=== PATIENT | male | born 1940 | race Caucasian/White ===

== ENCOUNTER 2025-04-12 20:59 | Inpatient (IN) ==
--- NOTE | 2025-04-12 21:10 | Emergency Department Note ---
History of Present Illness General Chief complaint: Heart Alert Stated complaint: Heart Alert Time Seen by Provider: 04/12/25 21:07 Source: EMS History of Present Illness Provider complaint: Heart alert 84-year-old male presented to the emergency department as a heart alert. Per EMS the patient was having crushing chest pain nausea and diaphoresis. On arrival patient reports that his chest pain is better after sublingual nitroglycerin and fentanyl. He is also reporting lower extremity pain. Patient reports that he was outside in the heat today. Patient reports he fell today but states did not hit his head. Home Medications Medication Instructions Recorded Confirmed Type acetaminophen 500 mg tablet 1,000 mg PO HS PRN Pain 04/12/25 04/12/25 History (Tylenol Extra Strength) amitriptyline 10 mg tablet 10 mg PO DAILY 04/12/25 04/12/25 History amitriptyline 25 mg tablet 25 mg PO HS 04/12/25 04/12/25 History aspirin 81 mg tablet,delayed 81 mg PO 3XWK 04/12/25 04/12/25 History release cholecalciferol (vitamin D3) 125 125 mcg PO DAILY 04/12/25 04/12/25 History mcg (5,000 unit) tablet (Vitamin D3) famotidine 10 mg tablet 10 mg PO BID 04/12/25 04/12/25 History folic acid 1 mg tablet 1 mg PO BID 04/12/25 04/12/25 History hydrocodone 5 mg-acetaminophen 325 0.5 tab PO BID 04/12/25 04/12/25 History mg tablet magnesium 250 mg tablet 250 mg PO DAILY 04/12/25 04/12/25 History methotrexate sodium 2.5 mg tablet 15 mg PO WK 04/12/25 04/12/25 History omega 8-[id number]-fff-fish oil 1,200 mg 2 cap PO HS 04/12/25 04/12/25 History (144 mg-216 mg) capsule (Fish Oil) oxybutynin chloride 10 mg 10 mg PO DAILY 04/12/25 04/12/25 History tablet,extended release 24 hr prednisone 10 mg tablet 10 mg PO [id number] 04/12/25 04/12/25 History ropinirole 1 mg tablet 1 mg PO HS 04/12/25 04/12/25 History tamsulosin 0.4 mg capsule (Flomax) 0.4 mg PO DAILY 04/12/25 04/12/25 History Allergies Allergy/AdvReac Type Severity Reaction Status Date / Time No Known Allergies Allergy Verified 04/12/25 21:18 Past Med/Surg History Problem List (Updated 04/12/25 @ 23:42 by Sanchez Staton MD) ST elevation (STEMI) myocardial infarction (Acute) Social History Smoking Status: Never smoker Preferred Language: Kinyarwanda Feels Safe at Home: Yes Physical Exam Vital Signs Vital Signs - 24 hr 04/12/25 21:15 04/12/25 21:30 04/12/25 21:42 Temperature 36.7 C Temperature Source Oral Pulse Rate 86 Pulse Rate [Apical] 86 84 Pulse Rhythm Regular Pulse Rhythm [Apical] Regular Regular Pulse Strength Normal Pulse Strength [Apical] Normal Normal Respiratory Rate 17 18 16 Respiratory Effort / Characteristics Non-Labored Spontaneous Non-Labored Spontaneous Non-Labored Spontaneous Respiratory Depth Normal Normal Normal Respiratory Pattern Regular Regular Regular Blood Pressure 132/83 Blood Pressure [Right Arm] 132/83 147/85 H Blood Pressure Mean 99 Blood Pressure Mean [Right Arm] 99 105 Blood Pressure Position Lying Blood Pressure Position [Right Arm] Lying Lying Pulse Oximetry 98 96 98 Oxygen Delivery Method Nasal Cannula Nasal Cannula Nasal Cannula Oxygen Flow Rate 2 2 2 Sepsis Recent Fever Within 48 Hours No Sepsis New/Unexplained Change in Mental Status N/A Sepsis Action Taken by Nursing No Action Required Physical Exam GENERAL: Ill-appearing. HENT: Exam performed. - Head: Normocephalic and atraumatic. NECK: Normal range of motion. Neck supple. No JVD present. CV: Normal rate, regular rhythm, normal heart sounds and intact distal pulses. There is no peripheral edema. Palpable radial pulses bue. PULM/CHEST: Effort normal and breath sounds normal. No respiratory distress. No stridor. He has no wheezes. He has no rales. - Chest Wall: He exhibits no tenderness. No crepitus bilaterally. ABD: The abdomen is soft. There is no tenderness. There is no rebound, no guarding. MUSC/SKEL: Pelvis stable NEURO: Motor and sensation grossly intact.. Course Course 2044: Received a call from EMS for patient having crushing chest pain diaphoresis. Prehospital EKG was concerning for STEMI with mild ST elevation in leads II, III, aVF mild ST depression in leads V2, V3, V4, V5 V6. Heart alert was called. 2114: The patient was evaluated in room B1. A complete history and physical exam was performed Cardiac monitoring: An order was placed for continuous cardiac monitoring. The monitor shows a rate of 80 with sinus rhythm interpreted by me Dr. Hernandez interventional cardiology and Dr. Wagner hospitalist were also at bedside. EKG shows possible ST segment elevation in leads V5 and V6. PVCs are present. History of fall and trauma now given. Repeat EKG showed sinus rhythm with possible ST elevation in lead V6 multiple PVCs were present. Chest x-ray was conducted which showed a possible widened mediastinum when viewed by myself. Given this chest x-ray finding, the report of fall, and the patient reporting lower extremity discomfort, we decided to take the patient to CT scan to rule out any traumatic intracranial hemorrhage and/or dissection. 2139: CT of the head viewed by me showed no ICH. CTA of the chest abdomen pelvis viewed by me showed no dissection. I discussed my interpretations with Dr. Hernandez and he stated they will take the patient to the [facility]. 2234: Received a call from Dr. Hernandez on the [facility]. Patient has multivessel disease with an extremely poor ejection fraction. The patient was hypotensive and hypoxic. His team is started the patient on Levophed and placed a balloon pump. They were discussing intubation. They asked that I go discuss the patient's clinical status with the family and to confirm that the patient is full code and would want all of these interventions done including intubation and mechanical ventilation. Formal imaging reports were reviewed which showed no dissection, no traumatic injury. I went and discussed with the family and the cardiac [facility] waiting area. I spoke with the patient's 2 sons who state that they are his next of kin. They state that the patient is a no code and would not want to be intubated. They called the patient's granddaughter who is also his PCP and she confirmed that the patient would not want to be intubated, not want compressions, and confirms he is DNR/DNI. I discussed these findings with Dr. Hernandez. He briefed the family and they again confirmed to both him and myself that the patient is DNR DNI. Administered Medications Discontinued Medications Diphenhydramine HCl (Diphenhydramine 50 Mg/Ml Vial) Confirm Administered Dose 50 mg .ROUTE .[facility] ONE Stop: 04/12/25 21:58 Last Admin: 04/12/25 23:02 Dose: 50 mg Documented By: ISAÍAS Fentanyl Citrate (Fentanyl Citrate Pf 100 Mcg/2 Ml Vial) Confirm Administered Dose 100 mcg .ROUTE .STK-MED ONE Stop: 04/12/25 21:08 Last Admin: 04/12/25 22:57 Dose: 200 mcg Documented By: ISAÍAS Fentanyl Citrate (Fentanyl Citrate Pf 100 Mcg/2 Ml Vial) Confirm Administered Dose 100 mcg .ROUTE .STK-MED ONE Stop: 04/12/25 22:48 Last Increment: 04/12/25 23:05 Dose: 25 mcg Documented By: ISAÍAS Heparin Sodium (Porcine) (Heparin (Porcine) 1000 Unit/Ml 10 Ml ([facility] Use Only)) Confirm Administered Dose 10,000 units .ROUTE .STK-MED ONE Stop: 04/12/25 21:08 Last Admin: 04/12/25 22:57 Dose: 9,000 units Documented By: ISAÍAS Heparin Sodium/Sodium Chloride (Heparin In Nss Infusion 1000 Unit/500 Ml (2 U/Ml) Bag) Confirm Administered Dose 3,000 units IV .STK-MED ONE Stop: 04/12/25 21:08 Last Admin: 04/12/25 22:59 Dose: 3,000 units Documented By: SHABNAM Ioversol (Optiray 350) Confirm Administered Dose 1 ml .ROUTE .STK-MED ONE Stop: 04/12/25 21:09 Last Admin: 04/12/25 23:01 Dose: 50 ml Documented By: SHABNAM Ioversol (Optiray 320 125ml) 119 ml IV ONCE ONE Stop: 04/12/25 21:45 Last Admin: 04/12/25 21:44 Dose: 119 ml Documented By: CARMEN Midazolam HCl (Midazolam Hcl 1 Mg/Ml 2ml Vial) Confirm Administered Dose 2 mg .ROUTE .STK-MED ONE Stop: 04/12/25 21:08 Last Admin: 04/12/25 22:59 Dose: 5 mg Documented By: ISAÍAS Midazolam HCl (Midazolam Hcl 1 Mg/Ml 2ml Vial) Confirm Administered Dose 2 mg .ROUTE .STK-MED ONE Stop: 04/12/25 22:05 Last Admin: 04/12/25 23:02 Dose: Not Given Documented By: ISAÍAS Nitroglycerin/Dextrose (Nitroglycerin/D5w 100mcg/Ml 20ml Syr) Confirm Administered Dose 2,000 mcg .ROUTE .STK-MED ONE Stop: 04/12/25 21:09 Last Admin: 04/12/25 23:01 Dose: 2,000 mcg Documented By: SHABNAM Phenylephrine HCl (Phenylephrine 100mcg/Ml 5ml Syr) Confirm Administered Dose 100 mcg .ROUTE .STK-MED ONE Stop: 04/12/25 22:17 Last Admin: 04/12/25 23:02 Dose: 100 mcg Documented By: ISAÍAS Co-signed By: KARTHIKEYAN Phenylephrine HCl (Phenylephrine Hcl 25 Mg/250 Ml Nss) Confirm Administered Dose 25 mg IV .STK-MED ONE Stop: 04/12/25 22:53 Last Admin: 04/12/25 23:06 Dose: 25 mg Documented By: ISAÍAS Co-signed By: KARTHIKEYAN Critical Care Time Critical Care Time: Yes Total Critical Care Time: 50 Medical Decision Making Laboratory Data Attestation: I reviewed the patient's lab results. 04/12/25 21:26 04/12/25 21:26 Lab Results 04/12/25 04/12/25 04/12/25 Range/Units 21:26 21:28 22:17 WBC 13.33 H (4.8-10.8) K/ul RBC 4.21 L (4.70-6.10) M/uL Hgb 14.0 (14.0-18.0) g/dl POC Hgb 13.6 L (14.0-18.0) g/dl Hct 40.7 L (42.0-52.0) % POC Hct 40 L (42-52) % MCV 96.7 (80.0-100.0) fL MCH 33.3 (25.0-34.0) pg MCHC 34.4 (32.0-36.0) g/dL RDW Std Deviation 51.3 H (36.4-46.3) fL RDW Coeff of Antoinette 14.6 H (11.5-14.5) % Plt Count 141 (130-400) K/uL MPV 9.4 (9.4-12.4) fL Immature Gran % (Auto) 1.0 % Neut % (Auto) 89.3 % Lymph % (Auto) 4.3 % Mobile % (Auto) 5.2 % Eos % (Auto) 0.0 % Baso % (Auto) 0.2 % Neut # (Auto) 11.92 H (1.40-6.50) K/uL Lymph # (Auto) 0.57 L (1.20-3.40) K/uL Mobile # (Auto) 0.69 H (0.11-0.59) K/uL Eos # (Auto) 0.00 (0.00-0.50) K/uL Baso # (Auto) 0.02 (0.00-0.20) K/uL Immature Gran # (Auto) 0.13 (0.01-0.20) K/uL PT 11.4 (9.0-12.0) Seconds INR 1.1 (0.9-1.1) APTT 24 (21-31) Seconds PTT Ratio 0.9 Activ Coag Time Kaolin 176 H (94-140) SECONDS POC Sodium 141 (135-144) mmol/L Sodium 140 (136-145) mmol/L POC Potassium 4.2 (3.3-5.0) mmol/L Potassium 4.3 (3.5-5.1) mmol/L POC Chloride 104 (101-112) mmol/L Chloride 107 (98-107) mmol/L Carbon Dioxide 25 (21-32) mmol/L POC Total CO2 24 (24-31) mmol/L Anion Gap 8 (3-11) POC Anion Gap 19.0 (16-25) mmol/L POC BUN 28 H (7-18) mg/dl BUN 30 H (6-23) mg/dl Creatinine 1.01 (0.6-1.4) mg/dl POC Creatinine 1.1 (0.6-1.3) mg/dl Est Cr Clr Drug Dosing 47.8 ml/min eGFR 73.33 BUN/Creatinine Ratio 29.7 H (10-20) Glucose 131 H (70-99(Fasting)) mg/dl POC Glucose (other) 126 H (70-99) mg/dl Calcium 8.9 (8.6-10.3) mg/dl POC Ioniz Calcium Annabel 1.01 L (1.12-1.32) mmol/l Magnesium 1.9 (1.7-2.4) mg/dl Total Bilirubin 0.9 (0.2-1.0) mg/dl AST 21 (13-39) U/L ALT 22 (7-52) U/L Alkaline Phosphatase 50 (34-104) U/L Total Creatine Kinase 187 (30-223) U/L Troponin I High Sens 192.1 H* (0-20) pg/ml B-Natriuretic Peptide 130 H (0-100) pg/ml Total Protein 6.8 (6.0-8.3) gm/dl Albumin 4.0 (3.4-5.0) gm/dl Globulin 2.8 (2.5-4.0) gm/dl Albumin/Globulin Ratio 1.4 (0.9-2) Lipase 27 (11-82) U/L TSH 1.053 (0.300-4.500) uIu/ml Imaging Data Attestation: I personally reviewed and interpreted this imaging study as follows: My Impression: Chest x-ray was conducted which showed a possible widened mediastinum when viewed by myself. CT of the head viewed by me showed no ICH. CTA of the chest abdomen pelvis viewed by me showed no dissection. Radiologist's Impression: Chest X-Ray 04/12/25 21:15 Exam(s): XR CXR 1 VIEW EXAM: XR Chest, 1 View CLINICAL HISTORY: Reason for exam: Chest pain, nonspecific. TECHNIQUE: Frontal view of the chest. COMPARISON: No relevant prior studies available. FINDINGS: Lungs: Unremarkable. No consolidation. Pleural space: Unremarkable. No pneumothorax. Heart: Unremarkable. No cardiomegaly. Mediastinum: Unremarkable. Normal mediastinal contour. Bones/joints: Unremarkable. No acute fracture. IMPRESSION: Normal chest x-ray. Electronically signed by: Wil Sosa MD 04/12/25 22:15 PM Abdomen/Pelvis CTA 04/12/25 21:24 Exam(s): CTA ABDOMEN + PELVIS W/WO Contrast IV Amt: 119ml EXAM: CT Angiography Abdomen and Pelvis Without and With Intravenous Contrast CLINICAL HISTORY: Reason for exam: trauma. TECHNIQUE: Axial computed tomographic angiography images of the abdomen and pelvis without and with intravenous contrast. CTDI is 20.42 mGy and DLP is 1466. 29 mGy-cm. Automated exposure control was utilized for the study. A dose lowering technique was utilized adhering to the principles of ALARA. MIP reconstructed images were created and reviewed. CONTRAST: Patient received 119ml of IV contrast COMPARISON: No relevant prior studies available. FINDINGS: VASCULATURE: Aorta: No acute findings. No abdominal aortic aneurysm. No dissection. Celiac trunk and mesenteric arteries: No acute findings. No occlusion or significant stenosis. Renal arteries: No acute findings. No occlusion or significant stenosis. Iliac arteries: No acute findings. No occlusion or significant stenosis. Lung bases: Unremarkable. No mass. No consolidation. ABDOMEN: Liver: Unremarkable. No mass. Gallbladder and bile ducts: Cholelithiasis without evidence acute cholecystitis. No ductal dilation. Pancreas: Unremarkable. No ductal dilation. No mass. Spleen: Unremarkable. No splenomegaly. Adrenals: Unremarkable. No mass. Kidneys and ureters: Simple 15 cm left renal cyst. No follow-up of this simple cyst is necessary. Simple 2.7 cm right renal cysts. No follow-up of these simple cysts is necessary. No obstructing stones. No hydronephrosis. Stomach and bowel: Unremarkable. No obstruction. No mucosal thickening. PELVIS: Appendix: No findings to suggest acute appendicitis. Bladder: Unremarkable. No stones. No mass. Reproductive: Unremarkable as visualized. ABDOMEN and PELVIS: Intraperitoneal space: Unremarkable. No significant fluid collection. No free air. Bones/joints: No acute fracture. No dislocation. Soft tissues: Fat containing left inguinal hernia Lymph nodes: Unremarkable. No enlarged lymph nodes. IMPRESSION: No acute findings in the arteries of the abdomen and pelvis. Cholelithiasis without evidence acute cholecystitis Electronically signed by: Wil Sosa MD 04/12/25 22:[address] 04/12/25 21:24 Exam(s): CT C SPINE EXAM: CT Cervical Spine Without Intravenous Contrast CLINICAL HISTORY: Reason for exam: trauma. TECHNIQUE: Axial computed tomography images of the cervical spine without intravenous contrast. CTDI is 24.47 mGy and DLP is 486.7 mGy-cm. Automated exposure control was utilized for the study. A dose lowering technique was utilized adhering to the principles of ALARA. COMPARISON: No relevant prior studies available. FINDINGS: Vertebrae: Multilevel cervical spondylopathy resulting in varying degrees of canal and foraminal stenosis most severe at the C5-C6 and C6- C7 levels. Diffuse osteopenia. No acute fracture. Discs/spinal canal/neural foramina: See above. Soft tissues: Unremarkable. IMPRESSION: No acute findings in the cervical spine. Multilevel cervical spondylopathy Electronically signed by: Wil Sosa MD 04/12/25 22:21 PM Chest CTA 04/12/25 21:24 Exam(s): CTA CHEST W/WO Contrast IV Amt: 119ml EXAM: CT Angiography Chest Without and With Intravenous Contrast CLINICAL HISTORY: Reason for exam: trauma. TECHNIQUE: Axial computed tomographic angiography images of the chest without and with intravenous contrast. CTDI is 20.42 mGy and DLP is 1466.29 mGy-cm. Automated exposure control was utilized for the study. A dose lowering technique was utilized adhering to the principles of ALARA. MIP reconstructed images were created and reviewed. CONTRAST: Patient received 119ml of IV contrast COMPARISON: No relevant prior studies available. FINDINGS: Pulmonary arteries: Unremarkable. No pulmonary embolism. Aorta: No acute findings. No thoracic aortic aneurysm. Lungs: Unremarkable. No mass. No consolidation. Pleural space: Unremarkable. No significant effusion. No pneumothorax. Heart: Coronary artery calcifications. No cardiomegaly. No significant pericardial effusion. No evidence of RV dysfunction. Bones/joints: No acute fracture. No dislocation. Soft tissues: Unremarkable. Lymph nodes: Unremarkable. No enlarged lymph nodes. IMPRESSION: No acute findings in the visualized arteries of the chest. Electronically signed by: Wil Sosa MD 04/12/25 22:[address] 04/12/25 21:24 Exam(s): CT HEAD Without Contrast EXAM: CT Head Without Intravenous Contrast CLINICAL HISTORY: Reason for exam: trauma. TECHNIQUE: Axial computed tomography images of the head/brain without intravenous contrast. CTDI is 37.87 mGy and DLP is 624.41 mGy-cm. Automated exposure control was utilized for the study. A dose lowering technique was utilized adhering to the principles of ALARA. COMPARISON: No relevant prior studies available. FINDINGS: Brain: Unremarkable. No hemorrhage. No significant white matter disease. No edema. Ventricles: Unremarkable. No ventriculomegaly. Bones/joints: Unremarkable. No acute fracture. Soft tissues: Unremarkable. Sinuses: Unremarkable as visualized. No acute sinusitis. Mastoid air cells: Unremarkable as visualized. No mastoid effusion. IMPRESSION: Normal head/brain CT. Electronically signed by: Wil Sosa MD 04/12/25 22:17 PM ECG Data Attestation: I personally reviewed and interpreted this ECG as follows: Additional Comments: EKG #1 at 2115: Sinus rhythm with rate of 77. TX 148 QRS [address] segment elevation in leads V5 and V6. PVCs are present. EKG #2 at 2122: Sinus rhythm with a rate of 92. TX 154 QRS [address] elevation in lead V6 multiple PVCs were present. [facility] Narrative 2044: Received a call from EMS for patient having crushing chest pain diaphoresis. Prehospital EKG was concerning for STEMI with mild ST elevation in leads II, III, aVF mild ST depression in leads V2, V3, V4, V5 V6. Heart alert was called. 2114: The patient was evaluated in room B1. A complete history and physical exam was performed Cardiac monitoring: An order was placed for continuous cardiac monitoring. The monitor shows a rate of 80 with sinus rhythm interpreted by me Dr. Hernandez interventional cardiology and Dr. Wagner hospitalist were also at bedside. EKG shows possible ST segment elevation in leads V5 and V6. PVCs are present. History of fall and trauma now given. Repeat EKG showed sinus rhythm with possible ST elevation in lead V6 multiple PVCs were present. Chest x-ray was conducted which showed a possible widened mediastinum when viewed by myself. Given this chest x-ray finding, the report of fall, and the patient reporting lower extremity discomfort, we decided to take the patient to CT scan to rule out any traumatic intracranial hemorrhage and/or dissection. 2139: CT of the head viewed by me showed no ICH. CTA of the chest abdomen pelvis viewed by me showed no dissection. I discussed my interpretations with Dr. Hernandez and he stated they will take the patient to the [facility]. 2234: Received a call from Dr. Hernandez on the [facility]. Patient has multivessel disease with an extremely poor ejection fraction. The patient was hypotensive and hypoxic. His team is started the patient on Levophed and placed a balloon pump. They were discussing intubation. They asked that I go discuss the patient's clinical status with the family and to confirm that the patient is full code and would want all of these interventions done including intubation and mechanical ventilation. Formal imaging reports were reviewed which showed no dissection, no traumatic injury. I went and discussed with the family and the cardiac [facility] waiting area. I spoke with the patient's 2 sons who state that they are his next of kin. They state that the patient is a no code and would not want to be intubated. They called the patient's granddaughter who is also his PCP and she confirmed that the patient would not want to be intubated, not want compressions, and confirms he is DNR/DNI. I discussed these findings with Dr. Hernandez. He briefed the family and they again confirmed to both him and myself that the patient is DNR DNI. Impression & Plan ST elevation (STEMI) myocardial infarction Discharge Plan Visit Data Chief Complaint: Heart Alert Stated Complaint: Heart Alert ED Provider: Sanchez Staton Discharge Problem: ST elevation (STEMI) myocardial infarction Patient Disposition: Admitted As Inpatient Condition: Critical Discharge Instructions Interventions: ED Discharge Assessment Last Done: 04/12/25 21:44
[2025-04-12] MEDS: OPTIRAY 320 125ml IV ONE (21:44)
[2025-04-12 21:47] LABS: Hematocrit (blood only) 40.7 % (42.0-52.0); Hemoglobin 14.0 g/dl (14.0-18.0); Immature Granulocytes # (auto) 0.13 K/uL (0.01-0.20); Immature Granulocytes % (auto) 1.0 %; Mean Corpuscular Hemoglobin 33.3 pg (25.0-34.0); Mean Corpuscular Volume 96.7 fL (80.0-100.0); Platelet Count 141 K/uL (130-400); RDW Standard Deviation 51.3 fL (36.4-46.3); Red Blood Count 4.21 M/uL (4.70-6.10); White Blood Count 13.33 K/ul (4.8-10.8)
[2025-04-12 21:56] LABS: Alanine Aminotransferase 22.0 U/L (7-52); Albumin Globulin Ratio 1.4 (0.9-2); Alkaline Phosphatase 50.0 U/L (34-104); Anion Gap 8.0 (3-11); Bilirubin,Total 0.9 mg/dl (0.2-1.0); Blood Urea Nitrogen 30.0 mg/dl (6-23); Calcium 8.9 mg/dl (8.6-10.3); Carbon Dioxide 25.0 mmol/L (21-32); Chloride 107.0 mmol/L (98-107); Creatine Kinase 187.0 U/L (30-223); Creatinine Clr Calc Pharmacy 47.8 ml/min; Globulin 2.8 gm/dl (2.5-4.0); Glucose 131.0 mg/dl (70-99(Fasting)); Lipase 27.0 U/L (11-82); Magnesium 1.9 mg/dl (1.7-2.4); Potassium 4.3 mmol/L (3.5-5.1); Sodium 140.0 mmol/L (136-145); Total Protein 6.8 gm/dl (6.0-8.3)
[2025-04-12 22:05] LABS: INR 1.1 (0.9-1.1); Partial Thromboplastin Time 24 Seconds (21-31); Prothrombin Time 11.4 Seconds (9.0-12.0)
[2025-04-12 22:11] LABS: Thyroid Stimulating Hormone 1.053 uIu/ml (0.300-4.500)
--- NOTE | 2025-04-12 22:16 | XRay Report ---
Exam(s): XR CXR 1 VIEW EXAM: XR Chest, 1 View CLINICAL HISTORY: Reason for exam: Chest pain, nonspecific. TECHNIQUE: Frontal view of the chest. COMPARISON: No relevant prior studies available. FINDINGS: Lungs: Unremarkable. No consolidation. Pleural space: Unremarkable. No pneumothorax. Heart: Unremarkable. No cardiomegaly. Mediastinum: Unremarkable. Normal mediastinal contour. Bones/joints: Unremarkable. No acute fracture. IMPRESSION: Normal chest x-ray. Electronically signed by: Wil Sosa MD 04/12/25 22:15 PM
--- NOTE | 2025-04-12 22:18 | CT Scan Report ---
Exam(s): CT HEAD Without Contrast EXAM: CT Head Without Intravenous Contrast CLINICAL HISTORY: Reason for exam: trauma. TECHNIQUE: Axial computed tomography images of the head/brain without intravenous contrast. CTDI is 37.87 mGy and DLP is 624.41 mGy-cm. Automated exposure control was utilized for the study. A dose lowering technique was utilized adhering to the principles of ALARA. COMPARISON: No relevant prior studies available. FINDINGS: Brain: Unremarkable. No hemorrhage. No significant white matter disease. No edema. Ventricles: Unremarkable. No ventriculomegaly. Bones/joints: Unremarkable. No acute fracture. Soft tissues: Unremarkable. Sinuses: Unremarkable as visualized. No acute sinusitis. Mastoid air cells: Unremarkable as visualized. No mastoid effusion. IMPRESSION: Normal head/brain CT. Electronically signed by: Wil Sosa MD 04/12/25 22:17 PM
--- NOTE | 2025-04-12 22:22 | CT Scan Report ---
Exam(s): CT C SPINE EXAM: CT Cervical Spine Without Intravenous Contrast CLINICAL HISTORY: Reason for exam: trauma. TECHNIQUE: Axial computed tomography images of the cervical spine without intravenous contrast. CTDI is 24.47 mGy and DLP is 486.7 mGy-cm. Automated exposure control was utilized for the study. A dose lowering technique was utilized adhering to the principles of ALARA. COMPARISON: No relevant prior studies available. FINDINGS: Vertebrae: Multilevel cervical spondylopathy resulting in varying degrees of canal and foraminal stenosis most severe at the C5-C6 and C6- C7 levels. Diffuse osteopenia. No acute fracture. Discs/spinal canal/neural foramina: See above. Soft tissues: Unremarkable. IMPRESSION: No acute findings in the cervical spine. Multilevel cervical spondylopathy Electronically signed by: Wil Sosa MD 04/12/25 22:21 PM
--- NOTE | 2025-04-12 22:31 | CT Scan Report ---
Exam(s): CTA ABDOMEN + PELVIS W/WO Contrast IV Amt: 119ml EXAM: CT Angiography Abdomen and Pelvis Without and With Intravenous Contrast CLINICAL HISTORY: Reason for exam: trauma. TECHNIQUE: Axial computed tomographic angiography images of the abdomen and pelvis without and with intravenous contrast. CTDI is 20.42 mGy and DLP is 1466. 29 mGy-cm. Automated exposure control was utilized for the study. A dose lowering technique was utilized adhering to the principles of ALARA. MIP reconstructed images were created and reviewed. CONTRAST: Patient received 119ml of IV contrast COMPARISON: No relevant prior studies available. FINDINGS: VASCULATURE: Aorta: No acute findings. No abdominal aortic aneurysm. No dissection. Celiac trunk and mesenteric arteries: No acute findings. No occlusion or significant stenosis. Renal arteries: No acute findings. No occlusion or significant stenosis. Iliac arteries: No acute findings. No occlusion or significant stenosis. Lung bases: Unremarkable. No mass. No consolidation. ABDOMEN: Liver: Unremarkable. No mass. Gallbladder and bile ducts: Cholelithiasis without evidence acute cholecystitis. No ductal dilation. Pancreas: Unremarkable. No ductal dilation. No mass. Spleen: Unremarkable. No splenomegaly. Adrenals: Unremarkable. No mass. Kidneys and ureters: Simple 15 cm left renal cyst. No follow-up of this simple cyst is necessary. Simple 2.7 cm right renal cysts. No follow-up of these simple cysts is necessary. No obstructing stones. No hydronephrosis. Stomach and bowel: Unremarkable. No obstruction. No mucosal thickening. PELVIS: Appendix: No findings to suggest acute appendicitis. Bladder: Unremarkable. No stones. No mass. Reproductive: Unremarkable as visualized. ABDOMEN and PELVIS: Intraperitoneal space: Unremarkable. No significant fluid collection. No free air. Bones/joints: No acute fracture. No dislocation. Soft tissues: Fat containing left inguinal hernia Lymph nodes: Unremarkable. No enlarged lymph nodes. IMPRESSION: No acute findings in the arteries of the abdomen and pelvis. Cholelithiasis without evidence acute cholecystitis Electronically signed by: Wil Sosa MD 04/12/25 22:31 PM
--- NOTE | 2025-04-12 22:34 | CT Scan Report ---
Exam(s): CTA CHEST W/WO Contrast IV Amt: 119ml EXAM: CT Angiography Chest Without and With Intravenous Contrast CLINICAL HISTORY: Reason for exam: trauma. TECHNIQUE: Axial computed tomographic angiography images of the chest without and with intravenous contrast. CTDI is 20.42 mGy and DLP is 1466.29 mGy-cm. Automated exposure control was utilized for the study. A dose lowering technique was utilized adhering to the principles of ALARA. MIP reconstructed images were created and reviewed. CONTRAST: Patient received 119ml of IV contrast COMPARISON: No relevant prior studies available. FINDINGS: Pulmonary arteries: Unremarkable. No pulmonary embolism. Aorta: No acute findings. No thoracic aortic aneurysm. Lungs: Unremarkable. No mass. No consolidation. Pleural space: Unremarkable. No significant effusion. No pneumothorax. Heart: Coronary artery calcifications. No cardiomegaly. No significant pericardial effusion. No evidence of RV dysfunction. Bones/joints: No acute fracture. No dislocation. Soft tissues: Unremarkable. Lymph nodes: Unremarkable. No enlarged lymph nodes. IMPRESSION: No acute findings in the visualized arteries of the chest. Electronically signed by: Wil Sosa MD 04/12/25 22:34 PM
[2025-04-12] MEDS ORDERED: SODIUM CHLORIDE 0.9% 500 ML IV PRN (22:57)
[2025-04-12] MEDS: HEPARIN (PORCINE) 1000 UNIT/ML 10 ML (CATH LAB USE ONLY) ONE (22:57)
--- NOTE | 2025-04-12 22:57 | Pre Anesthesia Assessment ---
Date of Service April 12, 2025 Pre Sedation Assessment Vital Signs Temp Pulse Pulse Resp BP BP Pulse Ox 04/12/25 21:42 84 16 147/85 H 98 04/12/25 21:30 36.7 C 86 18 132/83 96 04/12/25 21:15 86 17 132/83 98 O2 Del Method O2 Flow Rate 04/12/25 21:42 Nasal Cannula 2 04/12/25 21:30 Nasal Cannula 2 04/12/25 21:15 Nasal Cannula 2 Cardiovascular Additional Comments: Distant heart sounds. No murmur appreciated Respiratory normal respiratory effort, lungs clear to auscultation Pre-Sedation Airway Assessment Smoking Status: Never smoker Class IV ASA 4 Notes The planned sedation has been discussed with the patient. Informed Consent was obtained. I have identified the patient, determined the appropriateness of sedation and have assessed the patient immediately prior to the procedure. All medicine(s) and interventions are by my order.
[2025-04-12] MEDS ORDERED: STAT IV Infusion **Titration per Protocol STA (22:58)
[2025-04-12] MEDS: MIDAZOLAM HCL 1 MG/ML 2ML VIAL ONE ×2 (22:59→23:02)
[2025-04-12] MEDS: OPTIRAY 350 ONE (23:01)
[2025-04-12] MEDS: NITROGLYCERIN/D5W 100MCG/ML 20ML SYR ONE (23:01)
[2025-04-12] MEDS: diphenhydrAMINE 50 MG/ML VIAL ONE (23:02)
[2025-04-12] MEDS: PHENYLEPHRINE 100MCG/ML 5ML SYR ONE (23:02)
[2025-04-12] MEDS: PHENYLEPHRINE HCL 25 MG/250 ML NSS IV ONE (23:06)
--- NOTE | 2025-04-12 23:07 | Post Anesthesia Assessment ---
Date of Service April 12, 2025 Post Sedation Assessment Vital Signs Temp Pulse Pulse Resp BP BP Pulse Ox 04/12/25 21:42 84 16 147/85 H 98 04/12/25 21:30 36.7 C 86 18 132/83 96 04/12/25 21:15 86 17 132/83 98 O2 Del Method O2 Flow Rate 04/12/25 21:42 Nasal Cannula 2 04/12/25 21:30 Nasal Cannula 2 04/12/25 21:15 Nasal Cannula 2 Recovery Score Activity: Moves 4 extremities Respiration: Deep Breath/Cough Circulation: +/-20% PreAnes Value Consciousness: Arouseable (by name) Oxygen Saturation: O2 needed for >90% Discharge Sedation Level of Care: Phase I Post Sedation Plan On clinical assessment, the patient appears to have tolerated the sedation without complications. Patient is recovering as anticipated. Patient will continue to be monitored by nursing and may be discharged when sedation discharge criteria are met per below protocol. Upon Completions of procedure up to 15 minutes continue every 5 minute vital signs and the P.A.R. score; then discharge to a Phase I or Fast Track to Phase II per the following guidelines: * Discharge Patient to appropriate Phase II area if PAR is 8 or greater or return to pre- procedure baseline. The post - procedure orders will be as directed. * If PAR score is less than 8 or not return to pre-procedure baseline then patient will follow Phase I monitoring till PAR is reached for Phase II. The Phase I may be done in procedure room or may call to secure a Phase I area. * If naloxone or flumazenil are used for reversal, hold in Phase I for continued monitoring from when last reversal dose was given for a minimum of 60 minutes or longer pending the nurse and/or physician discretion of patient condition before discharge to Phase II. Please call the Sedation Physician to re-evaluate and complete post-note for discharge to Phase II area. Do NOT discharge from procedure sedation or Phase 1 until post- sedation evaluation note is complete by procedure /sedation MD Sedation Discharge Instructions to be given to the patient at discharge to home. [facility] [place] Procedure Codes (Charges) Indication for Procedure Indication for procedure: ACS Sedation/Anesthesia Procedure 1: Sedation/Anesthesia: 74331 Mod Sedation by the same physician;Init15 Min Child Age 5 & Up (Initial 15 minutes, start 2150) Total Sedation Time (minutes): 56 Procedure 2: Sedation/Anesthesia: 43240 Mod Sedation by the same physician; Ea [id number] Minutes (Additional 41 minutes, end time 2247) Total Sedation Time (minutes): 56
--- NOTE | 2025-04-12 23:08 | History & Physical Report ---
Date of Service April 12, 2025 Assessment & Plan (1) Acute coronary syndrome: (2) Cardiogenic shock: (3) Neuropathy: Plan 84yo male presenting as a Heart Alert found to have severe multivessel disease, cardiogenic shock with severely reduced EF. 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 Presently on BiPAP for respiratory support. Patient with multiple family members at bedside. In accordance to patient's wishes will activate comfort measures #Comfort Care -Will manage overnight in the MICU -Patient on comfort measures presently -Limit VS, lab draws -Pain control with Tylenol PRN -Morphine 2-4mg IV q 3 hours PRN pain or air hunger - if patient requiring frequent doses will transition to Morphine drip -Ativan 1mg IV q 2 hours PRN anxiety or agitation -Atropine drops PRN secretions -Zofran PRN nausea #Acute coronary syndrome -If feasible will obtain 2D echo in the morning pending patient's overall clinical status -Continue ASA 81mg po daily #Neuropathy -Will continue patient's Amitriptyline at home dose -Continue patient's home Requip -Medications may help ease any discomfort from underlying neuropathy #GERD -Will continue Pepcid IV -may provide comfort for GI distress - patient on omeprazole at home History of Present Illness Chief Complaint: heart alert Primary Care Provider: ANY Urena Patient presented to [facility] as a Code Heart. History obtained through discussion with patient as well as daughter by phone ([phone]) Saul Trejo is an 84yo male with history of possible peripheral vascular disease "poor circulation" with bilateral LE wounds, chronic back pain and neuropathy presenting as a Code Heart. Patient lives alone and is very independent. He has family and friends that check on him frequently. Daughter reports that he loves to be outside and spends a lot of his day outside sitting at a picnic table in his yard. He had been in his usual state of health prior to tonight's incident. Patient's son and [id number] went to patient's home today to help change the bandages on his LE wounds. They found the patient sitting at the picnic table in his yard, slumped over with his head down. He was very weak and complaining of nausea. Family helped to get him into the home - report that he was weak with ambulation. He had several episodes of non-bloody vomiting and was complaining of numbness in his hands and feet as well as chest discomfort. EMS was called an the patient was noted to be severely diaphoretic and pale, saturation of 88% on room air. HR of 47. He was given ASA 324mg, Zofran 4mg IV, Fentanyl 100mcg IV and Nitro x 2 prior to arrival with some improvement in chest pain. Upon arrival to the ER patient still complaining of some substernal chest discomfort. Repeat EKG with no ST Elevations Patient was taken for CT scan then to for urgent cardiac catheterization Cardiac catheterization revealed severe, multivessel disease as well as markedly diminished LVEF. 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 He briefly had an IABP placed and was started on Phenylephrine. Results relayed to patient's family - opted for Comfort Measures at this time in accordance with patient's wishes Allergies Allergy/AdvReac Type Severity Reaction Status Date / Time No Known Allergies Allergy Verified 04/12/25 21:18 Home Medications Medication Instructions Recorded Confirmed Type acetaminophen 500 mg tablet 1,000 mg PO HS PRN Pain 04/12/25 04/12/25 History (Tylenol Extra Strength) amitriptyline 10 mg tablet 10 mg PO DAILY 04/12/25 04/12/25 History amitriptyline 25 mg tablet 25 mg PO HS 04/12/25 04/12/25 History aspirin 81 mg tablet,delayed 81 mg PO 3XWK 04/12/25 04/12/25 History release cholecalciferol (vitamin D3) 125 125 mcg PO DAILY 04/12/25 04/12/25 History mcg (5,000 unit) tablet (Vitamin D3) famotidine 10 mg tablet 10 mg PO BID 04/12/25 04/12/25 History folic acid 1 mg tablet 1 mg PO BID 04/12/25 04/12/25 History hydrocodone 5 mg-acetaminophen 325 0.5 tab PO BID 04/12/25 04/12/25 History mg tablet magnesium 250 mg tablet 250 mg PO DAILY 04/12/25 04/12/25 History methotrexate sodium 2.5 mg tablet 15 mg PO WK 04/12/25 04/12/25 History omega 1-ncs-vko-fish oil 1,200 mg 2 cap PO HS 04/12/25 04/12/25 History (144 mg-216 mg) capsule (Fish Oil) oxybutynin chloride 10 mg 10 mg PO DAILY 04/12/25 04/12/25 History tablet,extended release 24 hr prednisone 10 mg tablet 10 mg PO 6XWK 04/12/25 04/12/25 History ropinirole 1 mg tablet 1 mg PO HS 04/12/25 04/12/25 History tamsulosin 0.4 mg capsule (Flomax) 0.4 mg PO DAILY 04/12/25 04/12/25 History Past Med/Surg History Problem List (Updated 04/13/25 @ 01:46 by Jordana Wagner DO) Hypoxia Cardiogenic shock Acute coronary syndrome Medical History (Updated 04/13/25 @ 01:46 by Jordana Wagner DO) Neuropathy Surgical History (Updated 04/13/25 @ 01:47 by Jordana Wagner DO) No significant past surgical history Family History (Updated 04/13/25 @ 01:47 by Jordana Wagner DO) Other Family history non-contributory Social History Smoking Status: Never smoker Hx Alcohol Use: No Hx Substance Use: No Preferred Language: [place] Communication Ability: Impaired Communication Ability Comment: Impaired d/t meds and acuity 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 Beliefs That Will Affect Care: None Current Living Situation: Spouse Feels Safe at Home: Yes Assistive Devices: None Review of Systems Review of Systems: All systems reviewed & are unremarkable except as noted in HPI & below Physical Exam Physical Exam: General: patient awake and alert, answering some questions Skin: wounds of bilateral LE with dressing in place, C/D/I HEENT: NC/AT, PERRL, EOMI, anicteric sclera, conjunctiva without injection, ext ernal ear normal to inspection and nontender, nares patent, moist mucus membranes, dentition intact, no oropharyngeal lesions, neck supple, trachea midline, no LAD, no thyromegaly, no JVD Heart: +S1/S2, regular, no m/r/g, distant heart sounds Lungs: equal air entry bilaterally, no rales/rhonchi/wheezes Abd: +BS, soft, NT/ND, no masses/organomegaly/ascites Ext: warm, 2+ pulses in UE/LE bilaterally, no clubbing/cyanosis or edema Neuro: nonfocal After catheterization - patient seen in room 107-1 -Worsened mental status - patient does o pen eyes to name and follows some commands BiPAP in place Sheath in right groin, no active bleeding or hematoma Results & Data Results & Data Vital Signs (Past 12 Hours) Vital Signs Temp Pulse Pulse Resp BP BP Pulse Ox 04/12/25 21:42 84 16 147/85 H 98 04/12/25 21:30 36.7 C 86 18 132/83 96 04/12/25 21:15 86 17 132/83 98 O2 Del Method O2 Flow Rate 04/12/25 21:42 Nasal Cannula 2 04/12/25 21:30 Nasal Cannula 2 04/12/25 21:15 Nasal Cannula 2 Laboratory Results Laboratory Results WBC 13.33 K/ul (4.8-10.8) H 04/12/25 21: RBC 4.21 M/uL (4.70-6.10) L 04/12/25 21: Hgb 14.0 g/dl (14.0-18.0) 04/12/25 21: POC Hgb 13.6 g/dl (14.0-18.0) L 04/12/25 21: Hct 40.7 % (42.0-52.0) L 04/12/25 21: POC Hct 40 % (42-52) L 04/12/25 21: MCV 96.7 fL (80.0-100.0) 04/12/25 21: MCH 33.3 pg (25.0-34.0) 04/12/25 21: MCHC 34.4 g/dL (32.0-36.0) 04/12/25 21: RDW Std Deviation 51.3 fL (36.4-46.3) H 04/12/25: RDW Coeff of Antoinette 14.6 % (11.5-14.5) H 04/12/25: Plt Count 141 K/uL (130-400) 04/12/25: MPV 9.4 fL (9.4-12.4) 04/12/25: Immature Gran % (Auto) 1.0 % 04/12/25: Neut % (Auto) 89.3 % 04/12/25: Lymph % (Auto) 4.3 % 04/12/25: Canyon % (Auto) 5.2 % 04/12/25: Eos % (Auto) 0.0 % 04/12/25: Baso % (Auto) 0.2 % 04/12/25: Neut # (Auto) 11.92 K/uL (1.40-6.50) H 04/12/25: Lymph # (Auto) 0.57 K/uL (1.20-3.40) L 04/12/25: Canyon # (Auto) 0.69 K/uL (0.11-0.59) H 04/12/25: Eos # (Auto) 0.00 K/uL (0.00-0.50) 04/12/25: Baso # (Auto) 0.02 K/uL (0.00-0.20) 04/12/25: Immature Gran # (Auto) 0.13 K/uL (0.01-0.20) 04/12/25: PT 11.4 Seconds (9.0-12.0) 04/12/25: INR 1.1 (0.9-1.1) 04/12/25: APTT 24 Seconds (21-31) 04/12/25: PTT Ratio 0.9 04/12/25: Activ Coag Time Kaolin 176 SECONDS (94-140) H 04/12/25 22:17 POC Sodium 141 mmol/L (135-144) 04/12/25: Sodium 140 mmol/L (136-145) 04/12/25: POC Potassium 4.2 mmol/L (3.3-5.0) 04/12/25 21: Potassium 4.3 mmol/L (3.5-5.1) 04/12/25 21: POC Chloride 104 mmol/L (101-112) 04/12/25: Chloride 107 mmol/L (98-107) 04/12/25 21: Carbon Dioxide 25 mmol/L (21-32) 04/12/25: POC Total CO2 24 mmol/L (24-31) 04/12/25: Anion Gap 8 (3-11) 04/12/25: POC Anion Gap 19.0 mmol/L (16-25) 04/12/25: POC BUN 28 mg/dl (7-18) H 04/12/25 21: BUN 30 mg/dl (6-23) H 04/12/25: Creatinine 1.01 mg/dl (0.6-1.4) 04/12/25: POC Creatinine 1.1 mg/dl (0.6-1.3) 04/12/25: Est Cr Clr Drug Dosing 47.8 ml/min 04/12/25 21: eGFR 73.33 04/12/25: BUN/Creatinine Ratio 29.7 (10-20) H 04/12/25 21: Glucose 131 mg/dl (70-99(Fasting)) H 04/12/25: POC Glucose (other) 126 mg/dl (70-99) H 04/12/25: Calcium 8.9 mg/dl (8.6-10.3) 04/12/25 21: POC Ioniz Calcium Annabel 1.01 mmol/l (1.12-1.32) L 04/12/25: Magnesium 1.9 mg/dl (1.7-2.4) 04/12/25: Total Bilirubin 0.9 mg/dl (0.2-1.0) 04/12/25: AST 21 U/L (13-39) 04/12/25: ALT 22 U/L (7-52) 04/12/25 21: Alkaline Phosphatase 50 U/L (34-104) 04/12/25 21:26 Total Creatine Kinase 187 U/L (30-223) 04/12/25 21:26 Troponin I High Sens 192.1 pg/ml (0-20) H* 04/12/25 21:26 B-Natriuretic Peptide 130 pg/ml (0-100) H 04/12/25 21:26 Total Protein 6.8 gm/dl (6.0-8.3) 04/12/25 21: Albumin 4.0 gm/dl (3.4-5.0) 04/12/25 21: Globulin 2.8 gm/dl (2.5-4.0) 04/12/25 21: Albumin/Globulin Ratio 1.4 (0.9-2) 04/12/25 21: Lipase 27 U/L (11-82) 04/12/25 21: TSH 1.053 uIu/ml (0.300-4.500) 04/12/25 21:26 Impressions Chest X-Ray 04/12/25 21:15 Exam(s): XR CXR 1 VIEW EXAM: XR Chest, 1 View CLINICAL HISTORY: Reason for exam: Chest pain, nonspecific. TECHNIQUE: Frontal view of the chest. COMPARISON: No relevant prior studies available. FINDINGS: Lungs: Unremarkable. No consolidation. Pleural space: Unremarkable. No pneumothorax. Heart: Unremarkable. No cardiomegaly. Mediastinum: Unremarkable. Normal mediastinal contour. Bones/joints: Unremarkable. No acute fracture. IMPRESSION: Normal chest x-ray. Electronically signed by: Wil Sosa MD 04/12/25 22:15 PM Abdomen/Pelvis CTA 04/12/25 21:24 Exam(s): CTA ABDOMEN + PELVIS W/WO Contrast IV Amt: 119ml EXAM: CT Angiography Abdomen and Pelvis Without and With Intravenous Contrast CLINICAL HISTORY: Reason for exam: trauma. TECHNIQUE: Axial computed tomographic angiography images of the abdomen and pelvis without and with intravenous contrast. CTDI is 20.42 mGy and DLP is 1466. 29 mGy-cm. Automated exposure control was utilized for the study. A dose lowering technique was utilized adhering to the principles of ALARA. MIP reconstructed images were created and reviewed. CONTRAST: Patient received 119ml of IV contrast COMPARISON: No relevant prior studies available. FINDINGS: VASCULATURE: Aorta: No acute findings. No abdominal aortic aneurysm. No dissection. Celiac trunk and mesenteric arteries: No acute findings. No occlusion or significant stenosis. Renal arteries: No acute findings. No occlusion or significant stenosis. Iliac arteries: No acute findings. No occlusion or significant stenosis. Lung bases: Unremarkable. No mass. No consolidation. ABDOMEN: Liver: Unremarkable. No mass. Gallbladder and bile ducts: Cholelithiasis without evidence acute cholecystitis. No ductal dilation. Pancreas: Unremarkable. No ductal dilation. No mass. Spleen: Unremarkable. No splenomegaly. Adrenals: Unremarkable. No mass. Kidneys and ureters: Simple 15 cm left renal cyst. No follow-up of this simple cyst is necessary. Simple 2.7 cm right renal cysts. No follow-up of these simple cysts is necessary. No obstructing stones. No hydronephrosis. Stomach and bowel: Unremarkable. No obstruction. No mucosal thickening. PELVIS: Appendix: No findings to suggest acute appendicitis. Bladder: Unremarkable. No stones. No mass. Reproductive: Unremarkable as visualized. ABDOMEN and PELVIS: Intraperitoneal space: Unremarkable. No significant fluid collection. No free air. Bones/joints: No acute fracture. No dislocation. Soft tissues: Fat containing left inguinal hernia Lymph nodes: Unremarkable. No enlarged lymph nodes. IMPRESSION: No acute findings in the arteries of the abdomen and pelvis. Cholelithiasis without evidence acute cholecystitis Electronically signed by: Wil Sosa MD 04/12/25 22:[address] 04/12/25 21:24 Exam(s): CT C SPINE EXAM: CT Cervical Spine Without Intravenous Contrast CLINICAL HISTORY: Reason for exam: trauma. TECHNIQUE: Axial computed tomography images of the cervical spine without intravenous contrast. CTDI is 24.47 mGy and DLP is 486.7 mGy-cm. Automated exposure control was utilized for the study. A dose lowering technique was utilized adhering to the principles of ALARA. COMPARISON: No relevant prior studies available. FINDINGS: Vertebrae: Multilevel cervical spondylopathy resulting in varying degrees of canal and foraminal stenosis most severe at the C5-C6 and C6- C7 levels. Diffuse osteopenia. No acute fracture. Discs/spinal canal/neural foramina: See above. Soft tissues: Unremarkable. IMPRESSION: No acute findings in the cervical spine. Multilevel cervical spondylopathy Electronically signed by: Wil Sosa MD 04/12/25 22:21 PM Chest CTA 04/12/25 21:24 Exam(s): CTA CHEST W/WO Contrast IV Amt: 119ml EXAM: CT Angiography Chest Without and With Intravenous Contrast CLINICAL HISTORY: Reason for exam: trauma. TECHNIQUE: Axial computed tomographic angiography images of the chest without and with intravenous contrast. CTDI is 20.42 mGy and DLP is 1466.29 mGy-cm. Automated exposure control was utilized for the study. A dose lowering technique was utilized adhering to the principles of ALARA. MIP reconstructed images were created and reviewed. CONTRAST: Patient received 119ml of IV contrast COMPARISON: No relevant prior studies available. FINDINGS: Pulmonary arteries: Unremarkable. No pulmonary embolism. Aorta: No acute findings. No thoracic aortic aneurysm. Lungs: Unremarkable. No mass. No consolidation. Pleural space: Unremarkable. No significant effusion. No pneumothorax. Heart: Coronary artery calcifications. No cardiomegaly. No significant pericardial effusion. No evidence of RV dysfunction. Bones/joints: No acute fracture. No dislocation. Soft tissues: Unremarkable. Lymph nodes: Unremarkable. No enlarged lymph nodes. IMPRESSION: No acute findings in the visualized arteries of the chest. Electronically signed by: Wil Sosa MD 04/12/25 22:[address] 04/12/25 21:24 Exam(s): CT HEAD Without Contrast EXAM: CT Head Without Intravenous Contrast CLINICAL HISTORY: Reason for exam: trauma. TECHNIQUE: Axial computed tomography images of the head/brain without intravenous contrast. CTDI is 37.87 mGy and DLP is 624.41 mGy-cm. Automated exposure control was utilized for the study. A dose lowering technique was utilized adhering to the principles of ALARA. COMPARISON: No relevant prior studies available. FINDINGS: Brain: Unremarkable. No hemorrhage. No significant white matter disease. No edema. Ventricles: Unremarkable. No ventriculomegaly. Bones/joints: Unremarkable. No acute fracture. Soft tissues: Unremarkable. Sinuses: Unremarkable as visualized. No acute sinusitis. Mastoid air cells: Unremarkable as visualized. No mastoid effusion. IMPRESSION: Normal head/brain CT. Electronically signed by: Wil Sosa MD 04/12/25 22:17 PM PG Care Time/CCT Total # of Minutes Spent Total Time Spent with Patient: Total time spent is greater than 50% in coordination of care (as documented) at patient's floor/unit and/or counseling patient: Coding Level of Care Code 97525 INT INP/OBS CARE MIN Diagnoses Acute coronary syndrome I24.9 Cardiogenic shock R57.0 Neuropathy G62.9
--- NOTE | 2025-04-12 23:11 | Cardiology Consultation ---
Date of Consultation April 12, 2025 Assessment & Plan (1) Acute coronary syndrome: Labile EKG changes. Coronary angiography reveals severe multivessel coronary artery disease with ALLA I flow in both the circumflex and LAD distributions. Prognosis is limited by the degree/severity/extent of the disease within each vessel as well as a number of vessels involved. Patient unable to maintain O2 saturation. Patient also unable to main blood pressure in the EF looks globally severely reduced. Taken as a whole, prognosis is very poor even with attempts at revascularization. Furthermore, the patient's family including his POA (who is also evidently his primary care provider) would like to honor his wishes with regard to heroic measures. Therefore, we will proceed only with conservative management aimed at comfort. Once he is able to take oral medication then aspirin should be continued. Certainly can consider heparin but this is unlikely to significantly improve his outcome and may actually precipitate bleeding. We will obtain an echocardiogram to better look at his EF, segmental wall motion, etc. should he survive until tomorrow. (2) Cardiogenic shock: Initially placed a balloon pump. However, he actually improved most with the Naresh-Synephrine drip which we will continue for now. Given his apparent diffuse severe hypokinesis I do not think this will be enough for him to survive but we will reassess tomorrow. (3) Hypoxia: Patient was fairly hypoxic. He is DO NOT INTUBATE and DO NOT RESUSCITATE. Family is in agreement that he should be comfort measures only with supportive medication as tolerated. I am not clear if this would include BiPAP or if they would prefer only high flow nasal cannula. In any case, that will be worked out in the ICU. History of Present Illness Reason for Consultation: Acute coronary syndrome Attending Physician: Ganesh Hernandez MD, PhD History of Present Illness 84-year-old gentleman without any known cardiac problems was sent via EMS from home. Evidently, the patient was found down at home near his picnic table by his family. EMS arrived and they found him to have severe chest discomfort, provided him aspirin and nitroglycerin, and obtained an EKG which was suggestive of inferior ST elevation AL. On arrival here, his EKG did not have any residual inferior ST elevations. He had a single lead of ST elevations in the lateral lead. He also complained predominantly of back and lower extremity discomfort. Chest x-ray suggested widened mediastinum and therefore he was sent from the ED to CAT scanner to exclude aortic dissection. The preliminary look at the CAT scan did not suggest dissection so he was taken emergently to the cardiac catheterization suite. We initially tried access from the radial artery but could not get the sheath completely inserted presumably because of tortuosity. We therefore accessed the groin using an ultrasound. His right iliofemoral system was tortuous as well as his abdominal aorta. We were able to eventually get catheters in both the right coronary and the left coronary artery. Angiography revealed severe multivessel coronary disease. ALLA I flow in multiple branches of the circumflex with severe RCA and LAD also with ALLA I flow at best. We did not perform a ventriculogram but observation of the movement of coronaries suggested that his EF was on the 10 to 15% level. He was hypoxic and hypotensive. We started Naresh-Synephrine as a bolus to be followed by a drip. We also exchanged the right femoral artery sheath for a balloon pump. Fortunately, his family had arrived and was available in the [facility] waiting area. I had our [facility] nurse contact the emergency medicine physician to see if the patient could be intubated. He spoke with the family who said that the patient was DNR/DNI. I then went to speak with the family regarding his disease and prognosis. After discussion decision was made to make him comfortable only. We returned back to the [facility] and I removed the balloon pump. We sutured the sheath in place as he was not cooperative with maintaining a still position and I knew that he would bleed if we removed the sheath. The radial sheath had been left in place and was completely removed. Hemostasis there was obtained using the TR band. Patient was maintaining an adequate blood pressure on Naresh- Synephrine and therefore he was transported to the ICU for conservative medical management. No heroic measures are to be undertaken per the family and I feel this is reasonable given his very poor prognosis regardless of additional measures. Allergies Allergy/AdvReac Type Severity Reaction Status Date / Time No Known Allergies Allergy Verified 04/12/25 21:18 Home Medications Medication Instructions Recorded Confirmed Type acetaminophen 500 mg tablet 1,000 mg PO HS PRN Pain 04/12/25 04/12/25 History (Tylenol Extra Strength) amitriptyline 10 mg tablet 10 mg PO DAILY 04/12/25 04/12/25 History amitriptyline 25 mg tablet 25 mg PO HS 04/12/25 04/12/25 History aspirin 81 mg tablet,delayed 81 mg PO 3XWK 04/12/25 04/12/25 History release cholecalciferol (vitamin D3) 125 125 mcg PO DAILY 04/12/25 04/12/25 History mcg (5,000 unit) tablet (Vitamin D3) famotidine 10 mg tablet 10 mg PO BID 04/12/25 04/12/25 History folic acid 1 mg tablet 1 mg PO BID 04/12/25 04/12/25 History hydrocodone 5 mg-acetaminophen 325 0.5 tab PO BID 04/12/25 04/12/25 History mg tablet magnesium 250 mg tablet 250 mg PO DAILY 04/12/25 04/12/25 History methotrexate sodium 2.5 mg tablet 15 mg PO WK 04/12/25 04/12/25 History omega 6-tyz-yav-fish oil 1,200 mg 2 cap PO HS 04/12/25 04/12/25 History (144 mg-216 mg) capsule (Fish Oil) oxybutynin chloride 10 mg 10 mg PO DAILY 04/12/25 04/12/25 History tablet,extended release 24 hr prednisone 10 mg tablet 10 mg PO 6XWK 04/12/25 04/12/25 History ropinirole 1 mg tablet 1 mg PO HS 04/12/25 04/12/25 History tamsulosin 0.4 mg capsule (Flomax) 0.4 mg PO DAILY 04/12/25 04/12/25 History Patient History Social History Smoking Status: Never smoker Preferred Language: Macedonian Feels Safe at Home: Yes Review of Systems Review of Systems: Negative except as per HPI Physical Exam Constitutional: Elderly, chronically ill-appearing gentleman. Very uncomfortable and unable to lie still even with sedation. Neck: JVP 7 cmH2O Respiratory: He is not tachypneic. Oxygen level is low. Improved with high flow oxygen. No crackles on initial evaluation in the emergency department. Cardiovascular: Regular rhythm with borderline tachycardic rate. Distant heart sounds. S4 gallop. Musculoskeletal: no cyanosis or clubbing, extremities motor strength 5/5 Neurologic: Cognition is intact. Speech is fluent. No focal deficits. Psychiatric: A+Ox3, euthymic affect Results & Data Vital Signs (Past 12 Hours) Vital Signs Temp Pulse Pulse Resp BP BP Pulse Ox 04/12/25 21:42 84 16 147/85 H 98 04/12/25 21:30 36.7 C 86 18 132/83 96 04/12/25 21:15 86 17 132/83 98 O2 Del Method O2 Flow Rate 04/12/25 21:42 Nasal Cannula 2 04/12/25 21:30 Nasal Cannula 2 04/12/25 21:15 Nasal Cannula 2 PG Care Time/CCT Total # of Minutes Spent Total Time Spent with Patient: Total time spent is greater than 50% in coordination of care (as documented) at patient's floor/unit and/or counseling patient: Critical Care Time: Yes (80 minutes) A total of 80 minutes critical care time was spent in the initial evaluation and examination of the patient, review of available records. Discussion with the emergency department team, the cardiac catheterization team, the admitting team, and then with his family. Discussion with him was limited because of his physiologic stress and mental status. This time includes also the time for formulation and implementation of a plan of care as well as implementing new plan of care once further information was received. This time also includes documentation of all of the above. The time is exclusive of the time spent for the procedure itself. Coding Level of Care Code 63090 CRITICAL CARE 1ST 30-74M Diagnoses Acute coronary syndrome I24.9 Cardiogenic shock R57.0 Hypoxia R09.02 Additional Codes Critical Care Time - Critical Care Time: Yes ([id number]) Time Spent (min) 80
[2025-04-12] MEDS ORDERED: SCOPOLAMINE 1 MG/72 HR TDSY PATCH TD PRN (23:37)
[2025-04-12] MEDS ORDERED: CHECK SCOPOLAMINE PATCH PLACEMENT SCH (23:37)
[2025-04-12] MEDS ORDERED: ONDANSETRON INJ 2 MG/ML 2 ML VIAL IV PRN (23:48)
[2025-04-12] MEDS: MoRPHine SULFATE 4 MG/ML 1 ML CARP\\VIAL IV PRN (23:52)
[2025-04-13] MEDS ORDERED: CHECK SCOPOLAMINE PATCH PLACEMENT SCH
[2025-04-13] MEDS: RAPID SEQUENCE INDUCTION BAG ONE (00:25)
[2025-04-13] MEDS: MIDAZOLAM HCL 1 MG/ML 2ML VIAL ONE (00:25)
[2025-04-13] MEDS: PHENYLEPHRINE/NSS 25 MG/250 ML BAG IV SCH (00:28)
[2025-04-13] MEDS: MoRPHine SULFATE 4 MG/ML 1 ML CARP\\VIAL IV STA (00:29)
[2025-04-13] MEDS: FAMOTIDINE 20MG IV PUSH 20 MG/5 ML SYR IV SCH (00:41)
[2025-04-13] MEDS: AMITRIPTYLINE HCL 25 MG TAB PO SCH (00:41)
[2025-04-13] MEDS: ASPIRIN 81 MG ECTAB PO SCH (07:39)
[2025-04-13] MEDS: AMITRIPTYLINE HCL 10 MG TAB PO SCH (07:39)
[2025-04-13] MEDS: ATROPINE SULFATE 1% OP SOLN 5 ML BTL SL PRN (08:32)
[2025-04-13] MEDS: MoRPHine SULFATE 2 MG/ML CARP IV PRN (08:34)
[2025-04-13] MEDS ORDERED: TAMSULOSIN HCL 0.4 MG CAP PO SCH (09:00)
--- NOTE | 2025-04-13 10:19 | Hospitalist Progress Note ---
Date of Service April 13, 2025 Assessment & Plan (1) Acute coronary syndrome: Plan: He appears to have suffered a non-ST elevation FL. Continue medical management. He is off the balloon pump and blood pressure has stabilized. (2) Cardiogenic shock: Plan: Present on admission. Now resolved. He is off pressor support in the balloon pump has been discontinued. Will follow (3) Neuropathy: Plan: Peripheral neuropathy associated with restless legs. Resume usual medical management (4) GERD (gastroesophageal reflux disease): Plan: PPI therapy Plan The patient is awake and alert. Blood pressure is stabilized. SWING DRIVER order has been discontinued. Will maintain DNR/DNI. Transfer to PCU. Start OT and PT. I explained to the daughter that he probably will need placement for a while before any consideration for him returning to his previous living arrangements since he lives alone. Admission and Anticipated Discharge Date Admission Date: April 12, 2025 Subjective Alert and oriented. Blood pressure has stabilized. Daughter is at the bedside. We discussed discontinuing comfort measures only status since he is awake and alert and blood pressure is now stabilized. Will maintain DNR/DNI status. Transfer from ICU to PCU. Cardiac echo underway this morning, April 13. Review of Systems 2 Review of Systems: Constitutionalno fever or chills ENTno blurred vision, no double vision, no epistaxis, no sore throat Respiratoryno cough, no wheezing, no shortness of breath Cardiacno palpitations, no syncope. Chest discomfort has resolved Grazyna nausea, vomiting, diarrhea, melena, hematochezia GUno urinary retention, no urinary incontinence, no dysuria, no hematuria Musculoskeletalno joint pain, no muscle tenderness Skinno bruising, no rashes, no pruritus Neurono isolated weakness, no paresthesia, no weakness Psychno depression, no anxiety Physical Exam 2 Physical Exam: General-alert and oriented x3, no fever, no chills HEENT-head atraumatic and normocephalic, pupils equal and reactive to light, extraocular muscles intact Neck-no lymphadenopathy or thyromegaly, trachea midline Chest-clear to auscultation. No rales, wheezing or rhonchi Cardiac-regular rate and rhythm, normal S1 and S2 Abdomen-normal bowel sounds, no hepatosplenomegaly Extremities-no cyanosis, clubbing, or edema Neuro-cranial nerves II through XII intact, motor and sensory function within normal limits, strength symmetrical, no focal deficits Psych-normal affect, normal mood Results & Data Results & Data Vital Signs (Past 12 Hours) Vital Signs Temp Pulse Pulse Resp BP BP Pulse Ox 04/13/25 08:00 04/13/25 08:00 97 H 04/13/25 07:00 36.8 C 92 H 22 99/68 L 97 04/12/25 23:30 97 H 18 89 L 04/12/25 23:30 97 H 04/12/25 23:12 04/12/25 23:09 100 H 26 H 94 04/12/25 23:08 145/92 H 04/12/25 22:57 98 H 19 94 O2 Del Method O2 Flow Rate FiO2 04/13/25 08:00 Oxymask 4 04/13/25 08:00 04/13/25 07:00 Oxymask 4 04/12/25 23:30 04/12/25 23:30 04/12/25 23:12 BiPAP 04/12/25 23:09 04/12/25 23:08 04/12/25 22:57 40 Laboratory Results 04/12/25 21:26 04/12/25 21:26 PG Care Time/CCT Total # of Minutes Spent Total Time Spent with Patient: Total time spent is greater than 50% in coordination of care (as documented) at patient's floor/unit and/or counseling patient: Coding Level of Care Code 86090 SUB INP/OBS CARE 3/50MIN Diagnoses Acute coronary syndrome I24.9 Cardiogenic shock R57.0 Neuropathy G62.9 GERD (gastroesophageal reflux disease) K21.9
[2025-04-13 10:58] LABS: Hematocrit (blood only) 43.8 % (42.0-52.0); Hemoglobin 14.7 g/dl (14.0-18.0); Mean Corpuscular Hemoglobin 33.2 pg (25.0-34.0); Mean Corpuscular Volume 98.9 fL (80.0-100.0); Platelet Count 124 K/uL (130-400); RDW Standard Deviation 55.8 fL (36.4-46.3); Red Blood Count 4.43 M/uL (4.70-6.10); White Blood Count 18.75 K/ul (4.8-10.8)
[2025-04-13 11:15] LABS: Anion Gap 6.0 (3-11); Blood Urea Nitrogen 27.0 mg/dl (6-23); Calcium 8.3 mg/dl (8.6-10.3); Carbon Dioxide 29.0 mmol/L (21-32); Chloride 107.0 mmol/L (98-107); Creatinine Clr Calc Pharmacy 46.4 ml/min; Glucose 137.0 mg/dl (70-99(Fasting)); Potassium 4.7 mmol/L (3.5-5.1); Sodium 142.0 mmol/L (136-145)
--- NOTE | 2025-04-13 11:29 | XRay Report ---
EXAM: Radiograph of the Chest 1 View INDICATION: Myocardial infarction TECHNIQUE: Frontal view of the chest. COMPARISON: No relevant prior studies available. FINDINGS: Lungs and pleural spaces: There is moderate to marked diffuse thickening of the interstitial markings and batwing type perihilar groundglass density. No consolidation. No pleural effusion or pneumothorax. Heart: Prominent cardiac shadow partially centered by technique. Mediastinum: Normal contour. Bones/joints: No fracture, erosion or dislocation. Soft tissues: No abnormality noted. No radiopaque foreign body noted. Upper abdomen: No abnormality noted. IMPRESSION: Moderate to severe interstitial thickening and predominantly perihilar infiltrate. Findings may reflect developing CHF and/or bronchitis with perihilar pneumonia. ACT 112: N/A Electronically signed by Philomena Rollins 04-13-2025 11:29 AM
[2025-04-13 11:42] LABS: INR 1.1 (0.9-1.1); Partial Thromboplastin Time 27 Seconds (21-31); Prothrombin Time 11.4 Seconds (9.0-12.0)
[2025-04-13] MEDS: FUROSEMIDE 40 MG/4 ML VIAL IV ONE (13:36)
[2025-04-13] MEDS ORDERED: 0.2 MICRON FILTER SET 1 EACH IV STA (13:38)
[2025-04-13] MEDS ORDERED: AMIODARONE IV BOLUS & DRIP IV STA (13:38)
[2025-04-13] MEDS ORDERED: STAT IV Infusion **Titration per Protocol STA (13:38)
[2025-04-13] MEDS: AMIODARONE / D5W 150 MG/100 ML BAG IV STA (14:26)
[2025-04-13] MEDS: HEPARIN 25000 UNIT/500 ML D5W 25,000 UNITS/500 ML BAG IV SCH (14:46)
[2025-04-13] MEDS: AMIODARONE / D5W 360 MG/200 ML BAG IV ONE (14:46)
[2025-04-13] MEDS: Heparin IV Adult Wt-Based Standard *NO* INITIAL Bolus Protocol IV STA (14:48)
[2025-04-13] MEDS: ACETAMINOPHEN 500 MG TAB PO PRN (17:18)
[2025-04-13] MEDS: KETOROLAC TROMETHAMINE 15 MG/ML VIAL IV ONE (17:37)
--- NOTE | 2025-04-13 18:31 | Cardiac Catheterization ---
[facility] Data: [employer] Cardiac Status Clinical evaluation leading to the procedure CAD Presenation: Non STEMI Anginal Classification: CCS IV Heart Failure: NYHA Class: CCS IV Cardiogenic Shock within 24 Hours: Yes Cardiac Arrest within 24 Hours: No (Syncope but no defibrillation needed.) Imaging Studies Past 6 Months: No Stress Studies Past 6 Months: No Coronary Anatomy Dominant: Right Left Main (% Stenosis): Normal (Diffuse less than 30%) LAD (% Stenosis): Mid (95%) and Distal (99%) D1 (% Stenosis): Normal D2 (% Stenosis): Normal Circumflex (% Stenosis): Proximal (Calcified 50%) and Mid (Complex calcified 95 to 99%) OM1 (% Stenosis): Normal OM2 (% Stenosis): Normal OM3 (% Stenosis): Proximal (30 to 40%) L PL1 (% Stenosis): Normal (Diffuse slow flow) L PL2 (% Stenosis): Normal (Diffuse slow flow) RCA (% Stenosis): Proximal (Diffuse up to 70%), Mid (40 to 50%) and Distal (85 to 90%) R PDA (% Stenosis): Normal (Diffuse mild to moderate) R PL1 (% Stenosis): Normal (Diffuse mild to moderate) Diagnostic Physicians Name: Ganesh Hernandez MD, PhD Closure Device Percutaneous Entry Location: Radial followed by femoral Closure Device: Radial Band Recommendations: Management Recommendatons (Patient comfort measures with vasopressor support and respiratory support.) Cardiac Cath Procedure Full Procedure Date April 12, 2025 Pre-Procedure Diagnosis Pre-Procedure Diagnosis: Non STEMI AUC Score AUC Score: 08 Post-Procedure Diagnosis Post-Procedure Diagnosis: Severe CAD and Decreased LV Systolic Function Procedure(s) Performed Procedure(s) Performed: Coronary Angiography, IABP and Ultrasound Guided Vascular Access Garment Manufacturer Ganesh Hernandez MD, PhD Estimated Blood Loss Estimated Blood Loss: 10 cc Medication(s) Medication(s): Fentanyl, Heparin, Lidocaine 1%, Naresh-Synephrine and Versed Summary of Findings Brief description: Patient was brought emergently to the cardiac catheterization suite where he was shaved and prepped in a sterile fashion. Sedated using IV Versed and fentanyl. Soft tissue of the right wrist was anesthetized using 2 mL of 1% Xylocaine. The right radial artery was accessed with a modified Seldinger technique. However, we could not advance the radial artery sheath more than jail in and therefore we decided to abandon this approach. We turned our attention to femoral artery approach. Please note, the patient was very uncomfortable despite sedation, not very cooperative because of his discomfort (back and leg pain). Soft tissue the right groin were anesthetized using 10 mL of 1% Xylocaine. Right femoral artery was accessed using ultrasound for guidance (image saved). A 6 Samoan femoral artery sheath was placed. We had difficulty advancing the 0.35 J-tip wire but we did eventually get this through a tortuous distal abdominal aorta and iliofemoral system. Right coronary angiography was then performed in orthogonal views with a 6 Samoan JR4 guide catheter. This was then exchanged over the J-wire for an EBU 3.5 guide catheter but this could not fit the vessel well and therefore he went to a 6 Samoan EBU 3.75 guide catheter. Coronary angiography was then performed in orthogonal views. Patient's blood pressure continued to drop and therefore the guide catheters were removed. Decision was made to insert an intra-aortic balloon pump and the patient was also provided with vasopressor support using IV Naresh-Synephrine. The 6 Samoan femoral artery sheath was then exchanged for the balloon pump sheath. We advanced a 40 cc balloon over the guidewire and positioned it just distal to the left subclavian artery takeoff. Patient was then placed on one-to-one support. His blood pressure stabilized but he continued to worsen from a O2 saturation standpoint. We asked the emergency medicine physician to intubate the patient. Fortunately, the family had arrived and he was able to speak directly with them. They stated the patient did not want intubation or resuscitation. I then broke scrub and went to speak with the family. I explained to them his very poor prognosis given what I had found on coronary angiography and because there were no specific targets with regard to PCI which I felt would definitively improve his prognosis. He had no acute lesions and he had very poor flow globally secondary to his presumed low EF. At that point, they wished to make him comfort measures only. Therefore I returned to the [employer] where we removed his balloon pump but left the sheath in place so that he would not bleed. Patient was on BiPAP and subsequently transferred to the ICU for comfort care treatment. Fortunately, his blood pressure had improved and remained stable on the Naresh-Synephrine drip alone without the balloon pump. This ended the case. Coronary angiography findings: WSG-hnicc-jjdbwrw vessel bifurcating into the LAD and circumflex. It has diffuse mild disease of less than 30%. IHK-hhcio-prwdnye vessel. Proximal portion has diffuse calcification in the midsegment has 95% stenosis followed in the distal segment by 99% stenosis. There is a small first diagonal and a medium caliber branching second diagonal. There is ALLA 0 to ALLA I flow in the LAD and its branches distal to the midsegment. No acute thrombotic lesions. There appears to be left to left collaterals to the distal LAD. LCx-this is large caliber and nondominant. Proximal AV groove vessel with calcified 50% stenosis. Gives a high arising the small caliber OM1. The midsegment then has very complex calcified 95 to 99% stenosis. It provides a small caliber OM 2, a larger OM 3 which has 30 to 40% stenosis a larger posterolateral followed by a small caliber posterior lateral. All the vessels beyond the mid circumflex have no more than ALLA I flow. No acute thrombotic lesions are evident. RCA-this is large caliber and dominant. Proximally there is diffuse disease of up to 70% narrowing. The mid vessel has diffuse 40 to 50% stenosis. Distally there is focal easy 85 to 90% stenosis. The vessel then branches into the medium caliber branching posterior lateral and a small to medium caliber long PDA. Each of these vessels have diffuse mild to moderate disease. Summary: 1. Severe multivessel coronary artery disease. No definitive acute thrombotic lesions. Left ventriculogram not performed. The movement of the coronaries suggested severe reduction in the EF. 2. Cardiogenic shock likely secondary to initial arrhythmia (loss of consciousness at home) on the substrate of severe underlying multivessel coronary disease. IABP inserted and IV Naresh-Synephrine utilized to augment blood pressure successfully. (We had considered Impella support but the anatomy in the iliofemoral and distal aorta was questionable for this type of hemodynamic support). 3. Comfort measures initiated at the request of the patient's family. Should the patient stabilize hemodynamically and respiratory stephen then we will obtain an echocardiogram in the morning to more fully evaluate his LV structure and function. Further recommendations to follow. Hemodynamics Rest Ao:: 84/48 mmHg Final Ao: 119/75 mmHg LV: Not performed Recommendations Recommendations: Management Recommendatons (Patient comfort measures with vasopressor support and respiratory support.) Radiation Exposure (mGy) 1344 mGy, fluoroscopy time 6.4 minutes Contrast (mls) 50 cc Anesthesia 50 mg Benadryl, 125 mcg fentanyl, 5 mg Versed IV. Start 2150, end 2246 Procedural Complication(s) None Disposition ICU I attest to the content of the Intraoperative Record and any orders documented therein. Any exceptions are noted below. [facility] Card Cath Procedure Codes Cardiac Catheterization Procedure 1: Cardiovascular Cath Procedures: 39207 Coronaries Therapeutic Services & Ancillary Procedure 1: Cardiovascular Tx and Anc Procedures: 51200 IABP Insertion Procedure 2: Cardiovascular Tx and Anc Procedures: 14049 Ultrasonic Guidance Vascular Access Moderate Sedation Procedure 1: Sedation/Anesthesia: 61885 Mod Sedation by the same physician;Init15 Min Child Age 5 & Up (Initial 15 minutes, start time 2150) Procedure 2: Sedation/Anesthesia: 49139 Mod Sedation by the same physician; Ea [id number] Minutes (Additional 41 minutes, end time 2246) PG Care Time/CCT Total # of Minutes Spent Total Time Spent with Patient: Total time spent is greater than 50% in coordination of care (as documented) at patient's floor/unit and/or counseling patient:
[2025-04-13] MEDS: AMIODARONE / D5W 360 MG/200 ML BAG IV SCH (20:31)
[2025-04-13 21:35] LABS: ANTI-Xa, UFH(UnfractionatedHep 0.34 IU/ml (0.3-0.7)
[2025-04-13] MEDS: COUGH DROP (SUGAR FREE) LOZ 24 LOZ/1 BOX BUCCAL PRN (22:52)
[2025-04-14 06:57] LABS: Anion Gap 7.0 (3-11); Blood Urea Nitrogen 32.0 mg/dl (6-23); Calcium 8.3 mg/dl (8.6-10.3); Carbon Dioxide 29.0 mmol/L (21-32); Chloride 103.0 mmol/L (98-107); Creatinine Clr Calc Pharmacy 36.9 ml/min; Glucose 118.0 mg/dl (70-99(Fasting)); Potassium 3.8 mmol/L (3.5-5.1); Sodium 139.0 mmol/L (136-145)
[2025-04-14 07:12] LABS: ANTI-Xa, UFH(UnfractionatedHep 0.32 IU/ml (0.3-0.7)
[2025-04-14] MEDS: KETOROLAC TROMETHAMINE 15 MG/ML VIAL IV PRN (10:16)
--- NOTE | 2025-04-14 10:26 | XRay Report ---
XR chest 1V portable CLINICAL HISTORY: ACS COMPARISON STUDY: 04/13/2025 FINDINGS: Stable mild cardiomegaly without pulmonary vascular congestion. There is mild stranding opa city at the left lung base. Otherwise the prior pulmonary opacities have resolved. No pleural effusio n or pneumothorax. IMPRESSION: Mild residual opacity left lung base, improved. ACT 112: Negative or not required by law. Electronically signed by: Elliott Conner M.D. 04/14/2025 10:25 AM
--- NOTE | 2025-04-14 10:59 | Electrocardiogram Report ---
Test Reason : Blood Pressure : */* mmHG Vent. Rate : 94 BPM Atrial Rate : 94 BPM P-R Int : 138 ms QRS Dur : 90 ms QT Int : 374 ms P-R-T Axes : 70 -75 58 degrees QTcB Int : 467 ms Normal sinus rhythm Left anterior fascicular block Abnormal ECG No previous ECGs available Confirmed by Eduardo Mejias ([id number]) on 04/14/2025 10:58:30 AM Referred By: REFERRED SELF Confirmed By: Eduardo Mejias
--- NOTE | 2025-04-14 12:50 | Hospitalist Progress Note ---
Date of Service April 14, 2025 Assessment & Plan (1) Acute coronary syndrome: Plan: He appears to have suffered a non-ST elevation [place] on admission. Continue medical management. He is off the balloon pump and blood pressure has stabilized. (2) Cardiogenic shock: Plan: Present on admission. Now resolved. He is off pressor support in the balloon pump has been discontinued. Will follow (3) Acute systolic (congestive) heart failure: Plan: Cardiac echo reveals left ventricular enlargement with estimated ejection fraction 15 to 20%. Mild AI and moderate MR are noted. CHF has resolved with treatment. Chest x-ray done today, April 14, looks much better (4) Acute respiratory failure with hypoxia: Plan: Resolved. He is now on room air (5) Ventricular ectopy: Plan: Suppressed with amiodarone. Intravenous administration switched to oral dosing today, April 14. Continue telemetry (6) Neuropathy: Plan: Peripheral neuropathy associated with restless legs. Continue current medical management (7) GERD (gastroesophageal reflux disease): Plan: Controlled with PPI therapy Plan OT and PT evaluations requested. He will need short-term SNF placement at the time of discharge within the next day or 2 Admission and Anticipated Discharge Date Admission Date: April 12, 2025 Subjective Alert and oriented. No distress. Daughters are at the bedside. Amiodarone IV switched to oral dosing. Chest x-ray done today, April 14, looks much better with resolution of CHF. He is now on room air. Cardiac echo reveals severe left ventricular systolic dysfunction with left ventricular enlargement and estimated ejection fraction of approximately 15 to 20%. Mild AI noted and moderate MR. Review of Systems 2 Review of Systems: Constitutionalno fever or chills ENTno blurred vision, no double vision, no epistaxis, no sore throat Respiratoryno cough, no wheezing, no shortness of breath Cardiacno palpitations, no syncope. Chest discomfort has resolved Grazyna nausea, vomiting, diarrhea, melena, hematochezia GUno urinary retention, no urinary incontinence, no dysuria, no hematuria Musculoskeletalno joint pain, no muscle tenderness Skinno bruising, no rashes, no pruritus Neurono isolated weakness, no paresthesia, no weakness Psychno depression, no anxiety Physical Exam 2 Physical Exam: General-alert and oriented x3, no fever, no chills HEENT-head atraumatic and normocephalic, pupils equal and reactive to light, extraocular muscles intact Neck-no lymphadenopathy or thyromegaly, trachea midline Chest-clear to auscultation. No rales, wheezing or rhonchi Cardiac-regular rate and rhythm, normal S1 and S2 Abdomen-normal bowel sounds, no hepatosplenomegaly Extremities-no cyanosis, clubbing, or edema Neuro-cranial nerves II through XII intact, motor and sensory function within normal limits, strength symmetrical, no focal deficits Psych-normal affect, normal mood Results & Data Results & Data Vital Signs (Past 12 Hours) Vital Signs Temp Pulse Pulse Pulse Resp BP BP 04/14/25 11:12 36.8 C 70 18 98/64 L 04/14/25 08:53 76 04/14/25 08:35 04/14/25 07:32 36.5 C 73 18 100/68 04/14/25 04:22 37.3 C 76 18 98/65 L Pulse Ox O2 Del Method 04/14/25 11:12 96 Room Air 04/14/25 08:53 04/14/25 08:35 Room Air 04/14/25 07:32 96 Room Air 04/14/25 04:22 92 Room Air Laboratory Results 04/13/25 10:39 04/14/25 05:43 PG Care Time/CCT Total # of Minutes Spent Total Time Spent with Patient: Total time spent is greater than 50% in coordination of care (as documented) at patient's floor/unit and/or counseling patient: Coding Level of Care Code 76069 SUB INP/OBS CARE 3/50MIN Diagnoses Acute coronary syndrome I24.9 Cardiogenic shock R57.0 Acute systolic (congestive) heart failure I50.21 Acute respiratory failure with hypoxia J96.01 Ventricular ectopy I49.3 Neuropathy G62.9 GERD (gastroesophageal reflux disease) K21.9
[2025-04-14] MEDS: AMIODARONE 200 MG TAB PO SCH (17:14)
[2025-04-15] MEDS ORDERED: REMOVE TRANSDERM-SCOP PATCH ONE (06:00)
[2025-04-15 06:56] LABS: Anion Gap 6.0 (3-11); Blood Urea Nitrogen 37.0 mg/dl (6-23); Calcium 8.3 mg/dl (8.6-10.3); Carbon Dioxide 30.0 mmol/L (21-32); Chloride 102.0 mmol/L (98-107); Creatinine Clr Calc Pharmacy 34.5 ml/min; Glucose 109.0 mg/dl (70-99(Fasting)); Potassium 4.0 mmol/L (3.5-5.1); Sodium 138.0 mmol/L (136-145)
--- NOTE | 2025-04-15 11:31 | Hospitalist Progress Note ---
Date of Service April 15, 2025 Assessment & Plan (1) Acute coronary syndrome: Plan: He appears to have suffered a non-ST elevation [place] on admission. Continue medical management. He is off the balloon pump and blood pressure has stabilized. (2) Cardiogenic shock: Plan: Present on admission. Now resolved. He is off pressor support in the balloon pump has been discontinued. Will follow (3) Acute systolic (congestive) heart failure: Plan: Cardiac echo reveals left ventricular enlargement with estimated ejection fraction 15 to 20%. Mild AI and moderate MR are noted. CHF has resolved with treatment. Chest x-ray done on April 14 looked much better (4) Acute respiratory failure with hypoxia: Plan: Resolved. He is now on room air (5) Ventricular ectopy: Plan: Suppressed with amiodarone. Intravenous administration switched to oral dosing on April 14. Continue telemetry (6) Neuropathy: Plan: Peripheral neuropathy associated with restless legs. Continue current medical management (7) GERD (gastroesophageal reflux disease): Plan: Controlled with PPI therapy Plan Short-term SNF placement at [facility] before he can return home. Hopefully tomorrow, April 16 Admission and Anticipated Discharge Date Admission Date: April 12, 2025 Subjective Alert and oriented. No complaints. Son is at the bedside. We agree that short-term SNF placement should be pursued before the patient returns home since he lives alone. Case management notified. The patient is currently hemodynamically stable and on room air. He is tolerating addition of amiodarone so far. Significant ventricular ectopy has been suppressed Review of Systems 2 Review of Systems: Constitutionalno fever or chills ENTno blurred vision, no double vision, no epistaxis, no sore throat Respiratoryno cough, no wheezing, no shortness of breath Cardiacno palpitations, no syncope. Chest discomfort has resolved Grazyna nausea, vomiting, diarrhea, melena, hematochezia GUno urinary retention, no urinary incontinence, no dysuria, no hematuria Musculoskeletalno joint pain, no muscle tenderness Skinno bruising, no rashes, no pruritus Neurono isolated weakness, no paresthesia, no weakness Psychno depression, no anxiety Physical Exam 2 Physical Exam: General-alert and oriented x3, no fever, no chills HEENT-head atraumatic and normocephalic, pupils equal and reactive to light, extraocular muscles intact Neck-no lymphadenopathy or thyromegaly, trachea midline Chest-clear to auscultation. No rales, wheezing or rhonchi Cardiac-regular rate and rhythm, normal S1 and S2 Abdomen-normal bowel sounds, no hepatosplenomegaly Extremities-no cyanosis, clubbing, or edema Neuro-cranial nerves II through XII intact, motor and sensory function within normal limits, strength symmetrical, no focal deficits Psych-normal affect, normal mood Results & Data Results & Data Vital Signs (Past 12 Hours) Vital Signs Temp Pulse Pulse Resp BP BP Pulse Ox 04/15/25 11:10 36.4 C L 82 16 92/54 L 98/63 L 93 04/15/25 09:29 86 04/15/25 07:54 36.4 C L 84 16 122/75 94 04/15/25 07:39 04/15/25 03:11 36.7 C 70 18 98/62 L 95 O2 Del Method 04/15/25 11:10 Room Air 04/15/25 09:29 04/15/25 07:54 Room Air 04/15/25 07:39 Room Air 04/15/25 03:11 Room Air Laboratory Results 04/13/25 10:39 04/15/25 06:09 PG Care Time/CCT Total # of Minutes Spent Total Time Spent with Patient: Total time spent is greater than 50% in coordination of care (as documented) at patient's floor/unit and/or counseling patient: Coding Level of Care Code 39516 SUB INP/OBS CARE 2/35MIN Diagnoses Acute coronary syndrome I24.9 Cardiogenic shock R57.0 Acute systolic (congestive) heart failure I50.21 Acute respiratory failure with hypoxia J96.01 Ventricular ectopy I49.3 Neuropathy G62.9 GERD (gastroesophageal reflux disease) K21.9
[2025-04-16 07:34] LABS: Anion Gap 5.0 (3-11); Blood Urea Nitrogen 40.0 mg/dl (6-23); Calcium 8.2 mg/dl (8.6-10.3); Carbon Dioxide 28.0 mmol/L (21-32); Chloride 106.0 mmol/L (98-107); Creatinine Clr Calc Pharmacy 42.6 ml/min; Glucose 100.0 mg/dl (70-99(Fasting)); Potassium 4.0 mmol/L (3.5-5.1); Sodium 139.0 mmol/L (136-145)
[2025-04-16] MEDS: COLLAGENASE OINT 30 GM TUBE EXT SCH (08:19)
--- NOTE | 2025-04-16 12:49 | Electrocardiogram Report ---
Test Reason : Blood Pressure : */* mmHG Vent. Rate : 77 BPM Atrial Rate : 77 BPM P-R Int : 148 ms QRS Dur : 102 ms QT Int : 394 ms P-R-T Axes : * -8 -12 degrees QTcB Int : 445 ms Sinus rhythm with occasional Premature atrial complexes with premature ventricular or aberrantly cond ucted complexes Low voltage QRS Cannot rule out Inferior infarct , age undetermined Lateral injury pattern Abnormal ECG No previous ECGs available Confirmed by Eduardo Mejias ([id number]) on 04/16/2025 12:49:09 PM Referred By: REFERRED SELF Confirmed By: Eduardo Mejias
--- NOTE | 2025-04-16 12:50 | Electrocardiogram Report ---
Test Reason : Blood Pressure : */* mmHG Vent. Rate : 92 BPM Atrial Rate : 92 BPM P-R Int : 154 ms QRS Dur : 90 ms QT Int : 412 ms P-R-T Axes : 59 45 -53 degrees QTcB Int : 509 ms Sinus rhythm with Premature atrial complexes with Aberrant conduction ST elevation consider lateral injury or acute infarct Prolonged QT ACUTE AR / STEMI Abnormal ECG When compared with ECG of 12-Apr-2025 21:15, (unconfirmed) Premature ventricular complexes are no longer Present Minimal criteria for Inferior infarct are no longer Present T wave inversion now evident in Inferior leads QT has lengthened Confirmed by Eduardo Mejias ([id number]) on 04/16/2025 12:50:01 PM Referred By: REFERRED SELF Confirmed By: Eduardo Mejias
--- NOTE | 2025-04-16 14:22 | Hospitalist Progress Note ---
Date of Service April 16, 2025 Assessment & Plan (1) Acute coronary syndrome: Plan: He appears to have suffered a non-ST elevation [place] on admission. Continue medical management. He is off the balloon pump and blood pressure has stabilized. Continue aspirin (2) Cardiogenic shock: Plan: Present on admission. Now resolved. He is off pressor support in the balloon pump has been discontinued. Will follow Continue aspirin Blood pressure stable now (3) Acute systolic (congestive) heart failure: Plan: Cardiac echo reveals left ventricular enlargement with estimated ejection fraction 15 to 20%. Mild AI and moderate MR are noted. CHF has resolved with treatment. Chest x-ray done on April 14 looked much better Not on diuretics now (4) Acute respiratory failure with hypoxia: Plan: Resolved. He is now on room air (5) Ventricular ectopy: Plan: Suppressed with amiodarone. Intravenous administration switched to oral dosing on April 14. Continue telemetry (6) Neuropathy: Plan: Peripheral neuropathy associated with restless legs. Continue current medical management (7) GERD (gastroesophageal reflux disease): Plan: Controlled with PPI therapy Plan Short-term SNF placement at [facility] before he can return home. Insurance Auth in process. Hopefully tomorrow, April 17 Admission and Anticipated Discharge Date Admission Date: April 12, 2025 Subjective Patient was seen and examined at 11:20 AM. He denies chest pain or shortness of breath. He is accompanied by his daughter and grandson at the bedside. Review of Systems Review of Systems: All systems reviewed & are unremarkable except as noted in Subjective Physical Exam Physical Exam: General: Awake, conversant. Frail looking elderly male lying in bed. Heart: S1, S2/regular rate and rhythm, no murmur rubs or gallops Lungs: Clear to auscultation bilaterally. Normal effort Abdomen: Soft/nontender/nondistended. No hepatosplenomegaly Extremities: No clubbing/cyanosis. No edema Behavior: Appropriate, cooperative Results & Data Results & Data Vital Signs (Past 12 Hours) Vital Signs Temp Pulse Pulse Resp BP Pulse Ox O2 Del Method 04/16/25 14:05 72 04/16/25 10:50 36.7 C 54 L 14 118/65 98 Room Air 04/16/25 09:27 69 04/16/25 08:32 36.6 C 68 16 99/63 L 93 Room Air 07/16/25 07:51 Room Air 04/16/25 07:01 36.6 C 70 16 90 Room Air 04/16/25 05:49 75 04/16/25 02:59 36.7 C 70 18 102/66 95 Room Air PG Care Time/CCT Total # of Minutes Spent Total Time Spent with Patient: Total time spent is greater than 50% in coordination of care (as documented) at patient's floor/unit and/or counseling patient: Coding Level of Care Code 06229 SUB INP/OBS CARE 2/35MIN Diagnoses Acute coronary syndrome I24.9 Cardiogenic shock R57.0 Acute systolic (congestive) heart failure I50.21 Acute respiratory failure with hypoxia J96.01 Ventricular ectopy I49.3 Neuropathy G62.9 GERD (gastroesophageal reflux disease) K21.9
[2025-04-17] MEDS: IBUPROFEN 200 MG TAB PO PRN (13:16)
--- NOTE | 2025-04-17 16:39 | Hospitalist Progress Note ---
Date of Service April 17, 2025 Assessment & Plan (1) Acute coronary syndrome: Plan: He appears to have suffered a non-ST elevation [place] on admission. Continue medical management. He is off the balloon pump and blood pressure has stabilized. Continue aspirin (2) Cardiogenic shock: Plan: Present on admission. Now resolved. He is off pressor support in the balloon pump has been discontinued. Will follow Continue aspirin Blood pressure stable now (3) Acute systolic (congestive) heart failure: Plan: Cardiac echo reveals left ventricular enlargement with estimated ejection fraction 15 to 20%. Mild AI and moderate MR are noted. CHF has resolved with treatment. Chest x-ray done on April 14 looked much better Ischemic cardiomyopathy Not on diuretics now Ordered limited echo to recheck EF. Started small dose of Toprol-XL If blood pressure tolerates, may start CARMEN inhibitor soon Requested Dr. Mejias to see the patient tomorrow (4) Acute respiratory failure with hypoxia: Plan: Resolved. He is now on room air (5) Ventricular ectopy: Plan: Suppressed with amiodarone. Intravenous administration switched to oral dosing on April 14. Continue telemetry (6) Neuropathy: Plan: Peripheral neuropathy associated with restless legs. Continue current medical management (7) GERD (gastroesophageal reflux disease): Plan: Controlled with PPI therapy Plan Insurance denied SNF placement twice Patient wishes to go home eventually Admission and Anticipated Discharge Date Admission Date: April 12, 2025 Subjective Patient feels well. Denies chest pain or shortness of breath. He says that he is bored and would like to be discharged soon. Review of Systems Review of Systems: All systems reviewed & are unremarkable except as noted in Subjective Physical Exam Physical Exam: General: Awake, conversant. Frail looking elderly male lying in bed. Heart: S1, S2/regular rate and rhythm, no murmur rubs or gallops Lungs: Clear to auscultation bilaterally. Normal effort Abdomen: Soft/nontender/nondistended. No hepatosplenomegaly Extremities: No clubbing/cyanosis. No edema Behavior: Appropriate, cooperative Results & Data Results & Data Vital Signs (Past 12 Hours) Vital Signs Temp Pulse Pulse Resp BP Pulse Ox O2 Del Method 04/17/25 16:00 36.5 C 68 16 111/70 97 Room Air 04/17/25 11:30 36.8 C 79 18 106/68 95 Room Air 04/17/25 07:30 37.1 C 80 18 96/66 L 97 Room Air 04/17/25 07:16 70 04/17/25 05:54 74 PG Care Time/CCT Total # of Minutes Spent Total Time Spent with Patient: Total time spent is greater than 50% in coordination of care (as documented) at patient's floor/unit and/or counseling patient: Coding Level of Care Code 67005 SUB INP/OBS CARE 2/35MIN Diagnoses Acute coronary syndrome I24.9 Cardiogenic shock R57.0 Acute systolic (congestive) heart failure I50.21 Acute respiratory failure with hypoxia J96.01 Ventricular ectopy I49.3 Neuropathy G62.9 GERD (gastroesophageal reflux disease) K21.9
[2025-04-17] MEDS: METOPROLOL SUCC 25MG EXT REL TAB PO SCH (16:40)
[2025-04-18 08:23] VITALS: O2SAT 93
--- NOTE | 2025-04-18 09:29 | XCELERA ---
[id number]
[2025-04-18 11:07] VITALS: RESP 18; TEMP 97.5
--- NOTE | 2025-04-18 11:40 | Cardiology Progress Note ---
Date of Service April 18, 2025 Assessment & Plan (1) Acute coronary syndrome: Plan: -Significant three-vessel disease. -Tolerating low-dose metoprolol succinate. -Cath films reviewed with Dr. Trinh. He would be willing to stent the LAD and LCx. -As above, the patient would prefer conservative care, therefore, no cardiac intervention or LifeVest. -Discussed with Dr. Quintana, consider palliative care consult. -Stable for hospital discharge. (2) Cardiogenic shock: Plan: -Resolved. -Repeat echocardiogram essentially unchanged. Admission and Anticipated Discharge Date Admission Date: April 12, 2025 Subjective The patient is resting comfortably in bed without complaints of chest pain or dyspnea. We have discussed the possibility of proceeding with intracoronary stents, however, the patient is not interested at this time. He is anxious for hospital discharge. Physical Exam Physical Exam: In general is well-developed well-nourished male in no acute distress. HEENT exam is negative. Neck is supple with full carotid upstrokes. There are no carotid bruits. Jugular is pressure is flat at 90 degrees. No thyromegaly. Cardiovascular exam reveals a regular rhythm with distant heart sounds. No obvious murmurs. No S3. Lungs are clear without rales, rhonchi, or wheezes. Abdomen is benign without bruits. Extremities reveal no peripheral edema. Results & Data Vital Signs (Past 12 Hours) Vital Signs Temp Pulse Pulse Pulse Resp BP BP 04/18/25 11:06 36.4 C L 75 18 87/60 L 04/18/25 09:20 112/74 04/18/25 08:23 97/63 L 04/18/25 08:22 36.3 C L 84 22 87/62 L 04/18/25 08:19 71 04/18/25 07:19 56 L 04/18/25 03:18 36.6 C 86 18 112/72 Pulse Ox O2 Del Method 04/18/25 11:06 93 Room Air 04/18/25 09:20 04/18/25 08:23 04/18/25 08:22 93 Room Air 04/18/25 08:19 04/18/25 07:19 04/18/25 03:18 94 Room Air PG Care Time/CCT Total # of Minutes Spent Total Time Spent with Patient: Total time spent is greater than 50% in coordination of care (as documented) at patient's floor/unit and/or counseling patient: Coding Level of Care Code 39330 SUB INP/OBS CARE MIN Diagnoses Acute coronary syndrome I24.9 Cardiogenic shock R57.0
--- NOTE | 2025-04-18 14:17 | Palliative Care Consultation ---
Date of Consultation April 18, 2025 Assessment & Plan (1) Palliative care by specialist: met with pt and his daughter Celi, grandson and grand daughter at bedside. Discussed ACP with pt and family from 13:00-13:30 Introduced Palliative Medicine and explained our role in advanced care planning, symptom management and navigation through the progression of life limiting disease. Patient and/or family were receptive to palliative services for goals of care discussions. Reviewed we are different from hospice, a home health nurse visiting service. (2) Counseling regarding goals of care: Dr Quintana ([facility]) and myself met with pt and his family to discuss goals of care and discharge plan. Dr Quintana discussed pt's medical condition and HPI with family and encouraged/answered questions. Discussed the patient's values and goals and he expressed that being home with family is of highest value to him. He lives independently but has family and friends that check on him frequently. Daughter reports that he loves to be outside and spends a lot of his day outside sitting at a picnic table in his yard. We discussed heart failure as a progressively debilitating disease and that with multivessel disease and profoundly reduced EF prognosis is poor and may be as short as weeks to months. We discussed the patient's goals in respect to his health care. Pt stated that he was unsure if he would wish to return to the hospital for additional procedures or life prolonging care after discharge. He shared that he wishes to return home to enjoy life with his family but does not want any "heroic measures" or to be dependent on machines to keep him alive. We discussed his conversation with cardiology team and he reinforced that he does not want any further invasive procedures. We discussed option of continuing on current course of life prolonging therapy including returning to ED for diagnostics procedures vs a transition to comfort directed care and shift of focus from prolonging life to maximizing quality in what time he has left while allowing for a peaceful, dignified with comfort as the goal. Discussed hospice benefit: an interdisciplinary program offered by nurses, nurses aides, social workers, chaplains and a medical research tech for patients with a terminal condition and a life expectancy of less than 6 months. This is covered by Medicare at 100%/no out of pocket expense to patient and all meds/supplies needed by patient for the reason they are on hospice are paid for/covered by hospice. The goal is assure quality of life of the patient in their home setting (home, senior care, inpatient hospice setting) by providing symptoms management, psychosocial and spiritual support. However, they cannot offer 24 hours care and if the family is unable to provide that care, they will have to consider personal care with out of pocket cost vs. senior care placement. We discussed the goals of hospice as a patient service and the goals of care; we discussed EOL trajectories and transitions randy the emotional impact of realizing mortality as a concrete reality from prior abstract considerations. Pt was reassured that no matter where they are along this trajectory, they are not alone - their medical team will remain by their side through their journey. Discussed the pros/cons of accepting help when especially weakened and distressed by pain-which would also help provide relief/decrease caregiver b urden/strain. Patient and family expressed gratitude for the information and request some time to consider prior to any changes in plan of care. Patient currently exhibits decisional capacity based on the ability to convey understanding of personal PMHx, current medical condition, treatment options nor the risks / benefits/ potential outcomes of accepting/declining those options, and ability to make decisions based on such knowledge. Hospital does not have written documentation of patient wishes concerning his chosen proxy for medical decisions. Per PA [id number], in absence of written documentation of patient wishes, pt's proxy for medical decisions would be his adult children Jeancarlos Trejo and Armando Trejo. Pt currently does not require a proxy for medical decisions. Plan no changes in plan of care at this time. History of Present Illness Reason for Consultation: goals of care Requesting Physician: Monico Quintana MD Attending Physician: Monico Quintana MD History of Present Illness Saul Trejo is an 84yo male with history of possible peripheral vascular disease "poor circulation" with bilateral LE wounds, chronic back pain and neuropathy presenting as a Code Heart on 04/13. Patient lives alone and is very independent. He was brought to ED after being found by family sitting at the picnic table in his yard, slumped over with his head down. He was very weak and complaining of nausea with several episodes of non-bloody vomiting and numbness in his hands and feet as well as chest discomfort. EMS was called an the patient was noted to be severely diaphoretic and pale, saturation of 88% on room air. HR of 47. Upon arrival to the ER patient still complaining of some substernal chest discomfort. Repeat EKG with no ST Elevations Patient was taken for CT scan then to for urgent cardiac catheterization which revealed severe, multivessel disease as well as markedly diminished LVEF. Patient with hypoxia as well as hypotension in the analyst microbiology lab. He briefly had an IABP placed and was started on Phenylephrine. Results relayed to patient's family - opted for Comfort Measures at this time in accordance with patient's wishes. Pt subsequently had improved hemodynamics and felt better and ASSISTED LIVING EXECUTIVE DIRECTOR was reversed. Palliative care consulted to assist with establishing goals of care prior to discharge. Allergies Allergy/AdvReac Type Severity Reaction Status Date / Time No Known Allergies Allergy Verified 04/12/25 21:18 Home Medications Medication Instructions Recorded Confirmed Type acetaminophen 500 mg tablet 1,000 mg PO HS PRN Pain 04/12/25 04/12/25 History (Tylenol Extra Strength) amitriptyline 10 mg tablet 10 mg PO DAILY 04/12/25 04/12/25 History amitriptyline 25 mg tablet 25 mg PO HS 04/12/25 04/12/25 History aspirin 81 mg tablet,delayed 81 mg PO 3XWK 04/12/25 04/12/25 History release cholecalciferol (vitamin D3) 125 125 mcg PO DAILY 04/12/25 04/12/25 History mcg (5,000 unit) tablet (Vitamin D3) famotidine 10 mg tablet 10 mg PO BID 04/12/25 04/12/25 History folic acid 1 mg tablet 1 mg PO BID 04/12/25 04/12/25 History hydrocodone 5 mg-acetaminophen 325 0.5 tab PO BID 04/12/25 04/12/25 History mg tablet magnesium 250 mg tablet 250 mg PO DAILY 04/12/25 04/12/25 History methotrexate sodium 2.5 mg tablet 15 mg PO WK 04/12/25 04/12/25 History omega 4-dzj-cbm-fish oil 1,200 mg 2 cap PO HS 04/12/25 04/12/25 History (144 mg-216 mg) capsule (Fish Oil) oxybutynin chloride 10 mg 10 mg PO DAILY 04/12/25 04/12/25 History tablet,extended release 24 hr prednisone 10 mg tablet 10 mg PO 6XWK 04/12/25 04/12/25 History ropinirole 1 mg tablet 1 mg PO HS 04/12/25 04/12/25 History tamsulosin 0.4 mg capsule (Flomax) 0.4 mg PO DAILY 04/12/25 04/12/25 History amiodarone 200 mg tablet 200 mg PO BID 14 days #28 tabs 04/18/25 Rx metoprolol succinate 25 mg 12.5 mg (1/2 x 25 mg) PO QAM 1 04/18/25 Rx tablet,extended release 24 hr month #15 tabs Patient History Medical History (Updated 04/18/25 @ 14:14 by ANY Wade) Neuropathy Surgical History (Updated 04/13/25 @ 01:47 by Jordana Wagner DO) No significant past surgical history Family History (Updated 04/13/25 @ 01:47 by Jordana Wagner DO) Other Family history non-contributory Social History Smoking Status: Never smoker Hx Alcohol Use: No Hx Substance Use: No Preferred Language: Vietnamese Communication Ability: Impaired Communication Ability Comment: Impaired d/t meds and acuity Brushing Operator Required: No Beliefs That Will Affect Care: None Current Living Situation: Spouse Feels Safe at Home: Yes Assistive Devices: Cane, Scooter/Electric Scooter, Stair Lift and Walker Review of Systems Review of Systems: All systems reviewed & are unremarkable except as noted in HPI & below Physical Exam Constitutional: WD/WN, vitals as above Eyes: PERRL, conjunctivae normal, anicteric sclerae ENMT: external ear and nose normal, oropharynx normal Neck: trachea midline, no thyromegaly Cardiovascular: Rate/Rhythm: + irregularly irregular Gastrointestinal (Abdomen): normal bowel sounds, soft, nontender, no hepatosplenomegaly Musculoskeletal: no cyanosis or clubbing, extremities motor strength 5/5 Skin: + turgor decreased and + pallor Neurologic: PERRL, EOMI, accommodation nl, no face palsy, no dysarthria Psychiatric: A+Ox3, euthymic affect Results & Data Vital Signs (Past 12 Hours) Vital Signs Temp Pulse Pulse Pulse Resp BP BP 04/18/25 11:06 36.4 C L 75 18 87/60 L 04/18/25 09:20 112/74 04/18/25 08:23 97/63 L 04/18/25 08:22 36.3 C L 84 22 87/62 L 04/18/25 08:19 71 04/18/25 07:19 56 L 04/18/25 03:18 36.6 C 86 18 112/72 Pulse Ox O2 Del Method 04/18/25 11:06 93 Room Air 04/18/25 09:20 04/18/25 08:23 04/18/25 08:22 93 Room Air 04/18/25 08:19 04/18/25 07:19 04/18/25 03:18 94 Room Air Diagnostic Findings Abdomen/Pelvis CTA 04/12/25 21:24 Exam(s): CTA ABDOMEN + PELVIS W/WO Contrast IV Amt: 119ml EXAM: CT Angiography Abdomen and Pelvis Without and With Intravenous Contrast CLINICAL HISTORY: Reason for exam: trauma. TECHNIQUE: Axial computed tomographic angiography images of the abdomen and pelvis without and with intravenous contrast. CTDI is 20.42 mGy and DLP is 1466. 29 mGy-cm. Automated exposure control was utilized for the study. A dose lowering technique was utilized adhering to the principles of ALARA. MIP reconstructed images were created and reviewed. CONTRAST: Patient received 119ml of IV contrast COMPARISON: No relevant prior studies available. FINDINGS: VASCULATURE: Aorta: No acute findings. No abdominal aortic aneurysm. No dissection. Celiac trunk and mesenteric arteries: No acute findings. No occlusion or significant stenosis. Renal arteries: No acute findings. No occlusion or significant stenosis. Iliac arteries: No acute findings. No occlusion or significant stenosis. Lung bases: Unremarkable. No mass. No consolidation. ABDOMEN: Liver: Unremarkable. No mass. Gallbladder and bile ducts: Cholelithiasis without evidence acute cholecystitis. No ductal dilation. Pancreas: Unremarkable. No ductal dilation. No mass. Spleen: Unremarkable. No splenomegaly. Adrenals: Unremarkable. No mass. Kidneys and ureters: Simple 15 cm left renal cyst. No follow-up of this simple cyst is necessary. Simple 2.7 cm right renal cysts. No follow-up of these simple cysts is necessary. No obstructing stones. No hydronephrosis. Stomach and bowel: Unremarkable. No obstruction. No mucosal thickening. PELVIS: Appendix: No findings to suggest acute appendicitis. Bladder: Unremarkable. No stones. No mass. Reproductive: Unremarkable as visualized. ABDOMEN and PELVIS: Intraperitoneal space: Unremarkable. No significant fluid collection. No free air. Bones/joints: No acute fracture. No dislocation. Soft tissues: Fat containing left inguinal hernia Lymph nodes: Unremarkable. No enlarged lymph nodes. IMPRESSION: No acute findings in the arteries of the abdomen and pelvis. Cholelithiasis without evidence acute cholecystitis Electronically signed by: Wil Sosa MD 04/12/25 22:[address] 04/12/25 21:24 Exam(s): CT C SPINE EXAM: CT Cervical Spine Without Intravenous Contrast CLINICAL HISTORY: Reason for exam: trauma. TECHNIQUE: Axial computed tomography images of the cervical spine without intravenous contrast. CTDI is 24.47 mGy and DLP is 486.7 mGy-cm. Automated exposure control was utilized for the study. A dose lowering technique was utilized adhering to the principles of ALARA. COMPARISON: No relevant prior studies available. FINDINGS: Vertebrae: Multilevel cervical spondylopathy resulting in varying degrees of canal and foraminal stenosis most severe at the C5-C6 and C6- C7 levels. Diffuse osteopenia. No acute fracture. Discs/spinal canal/neural foramina: See above. Soft tissues: Unremarkable. IMPRESSION: No acute findings in the cervical spine. Multilevel cervical spondylopathy Electronically signed by: Wil Sosa MD 04/12/25 22:21 PM Chest CTA 04/12/25 21:24 Exam(s): CTA CHEST W/WO Contrast IV Amt: 119ml EXAM: CT Angiography Chest Without and With Intravenous Contrast CLINICAL HISTORY: Reason for exam: trauma. TECHNIQUE: Axial computed tomographic angiography images of the chest without and with intravenous contrast. CTDI is 20.42 mGy and DLP is 1466.29 mGy-cm. Automated exposure control was utilized for the study. A dose lowering technique was utilized adhering to the principles of ALARA. MIP reconstructed images were created and reviewed. CONTRAST: Patient received 119ml of IV contrast COMPARISON: No relevant prior studies available. FINDINGS: Pulmonary arteries: Unremarkable. No pulmonary embolism. Aorta: No acute findings. No thoracic aortic aneurysm. Lungs: Unremarkable. No mass. No consolidation. Pleural space: Unremarkable. No significant effusion. No pneumothorax. Heart: Coronary artery calcifications. No cardiomegaly. No significant pericardial effusion. No evidence of RV dysfunction. Bones/joints: No acute fracture. No dislocation. Soft tissues: Unremarkable. Lymph nodes: Unremarkable. No enlarged lymph nodes. IMPRESSION: No acute findings in the visualized arteries of the chest. Electronically signed by: Wil Sosa MD 04/12/25 22:[address] 04/12/25 21:24 Exam(s): CT HEAD Without Contrast EXAM: CT Head Without Intravenous Contrast CLINICAL HISTORY: Reason for exam: trauma. TECHNIQUE: Axial computed tomography images of the head/brain without intravenous contrast. CTDI is 37.87 mGy and DLP is 624.41 mGy-cm. Automated exposure control was utilized for the study. A dose lowering technique was utilized adhering to the principles of ALARA. COMPARISON: No relevant prior studies available. FINDINGS: Brain: Unremarkable. No hemorrhage. No significant white matter disease. No edema. Ventricles: Unremarkable. No ventriculomegaly. Bones/joints: Unremarkable. No acute fracture. Soft tissues: Unremarkable. Sinuses: Unremarkable as visualized. No acute sinusitis. Mastoid air cells: Unremarkable as visualized. No mastoid effusion. IMPRESSION: Normal head/brain CT. Electronically signed by: Wil Sosa MD 04/12/25 22:17 PM Chest X-Ray 04/14/25 09:56 XR chest 1V portable CLINICAL HISTORY: ACS COMPARISON STUDY: 04/13/2025 FINDINGS: Stable mild cardiomegaly without pulmonary vascular congestion. There is mild stranding opacity at the left lung base. Otherwise the prior pulmonary opacities have resolved. No pleural effusion or pneumothorax. IMPRESSION: Mild residual opacity left lung base, improved. ACT 112: Negative or not required by law. Electronically signed by: Elliott Conner M.D. 04/14/2025 10:25 AM Medications Administered Current Inpatient Medications Acetaminophen (Acetaminophen 500 Mg Tab) 1,000 mg PO HS PRN PRN Reason: Pain Stop: 05/12/25 23:36 Last Admin: 04/17/25 20:16 Dose: 1,000 mg Amiodarone HCl (Amiodarone 200 Mg Tab) 200 mg PO BIDM [facility] Stop: 05/14/25 16:59 Last Admin: 04/18/25 08:18 Dose: 200 mg Amitriptyline HCl (Amitriptyline Hcl 10 Mg Tab) 10 mg PO DAILY [facility] Stop: 05/13/25 08:59 Last Admin: 04/18/25 08:20 Dose: 10 mg Amitriptyline HCl (Amitriptyline Hcl 25 Mg Tab) 25 mg PO [facility] Stop: 05/12/25 23:36 Last Admin: 04/17/25 20:16 Dose: 25 mg Aspirin (Aspirin 81 Mg Ectab) 81 mg PO QAM [facility] Stop: 05/13/25 08:59 Last Admin: 04/18/25 08:20 Dose: 81 mg Collagenase (Collagenase Oint 30 Gm Tube) 1 appln EXT DAILY [facility] Stop: 05/16/25 08:59 Last Admin: 04/18/25 08:20 Dose: 1 appln Ibuprofen (Ibuprofen 200 Mg Tab) 400 mg PO Q6 PRN PRN Reason: Pain or Fever Stop: 05/17/25 12:49 Last Admin: 04/18/25 08:17 Dose: 400 mg Menthol (Cough Drop (Sugar Free) Emanuel 24 Emanuel/1 Box) 1 emanuel BUCCAL Q2H PRN PRN Reason: Cough Stop: 05/13/25 22:42 Last Admin: 04/13/25 22:52 Dose: 1 emanuel Metoprolol Succinate (Metoprolol Succ 25mg Ext Rel Tab) [facility]: 05/17/25 14:59 Last Admin: 04/18/25 08:24 Dose: 12.5 mg Ondansetron HCl (Ondansetron Inj 2 Mg/Ml 2 Ml Vial) 4 mg IV Q4H PRN PRN Reason: Nausea &/or Vomiting Stop: 05/12/25 23:47 Prednisone (Prednisone 10 Mg Tablet) 10 mg PO DAILY [facility] Stop: 05/14/25 09:59 Last Admin: 04/18/25 08:20 Dose: 10 mg Ropinirole HCl (Ropinirole Hcl 1 Mg Tablet) 1 mg PO [facility] Stop: 05/12/25 23:36 Last Admin: 04/17/25 20:16 Dose: 1 mg PG Care Time/CCT Total # of Minutes Spent Total Time Spent with Patient: Total time spent is greater than 50% in coordination of care (as documented) at patient's floor/unit and/or counseling patient: Advanced Care Planning 88476 Advanced Care Planning 30 [place] [address] IN/OBS CONSULT LVL 4,60M Patient Type New History Expanded Problem Focused Exam Expanded Problem Focused Medical Decision Making Moderate Complexity Diagnoses Palliative care by specialist Z51.5 Counseling regarding goals of care Z71.89 Additional Codes Advanced Care Planning - 33654 Advanced Care Planning 30 Min: 26934 Advanced Care Planning 30 Min ([id number])
--- NOTE | 2025-04-18 14:35 | Discharge Summary ---
Date of Service April 18, 2025 Admission HPI Per Admitting Provider Patient presented to [facility] as a [facility]. History obtained through discussion with patient as well as daughter by phone ([phone]) Saul Trejo is an 84yo male with history of possible peripheral vascular disease "poor circulation" with bilateral LE wounds, chronic back pain and neuropathy presenting as a Code Heart. Patient lives alone and is very independent. He has family and friends that check on him frequently. Daughter reports that he loves to be outside and spends a lot of his day outside sitting at a picnic table in his yard. He had been in his usual state of health prior to tonight's incident. Patient's son and [id number]-woj went to patient's home today to help change the bandages on his LE wounds. They found the patient sitting at the picnic table in his yard, slumped over with his head down. He was very weak and complaining of nausea. Family helped to get him into the home - report that he was weak with ambulation. He had several episodes of non-bloody vomiting and was complaining of numbness in his hands and feet as well as chest discomfort. EMS was called an the patient was noted to be severely diaphoretic and pale, saturation of 88% on room air. HR of 47. He was given ASA 324mg, Zofran 4mg IV, Fentanyl 100mcg IV and Nitro x 2 prior to arrival with some improvement in chest pain. Upon arrival to the ER patient still complaining of some substernal chest disc omfort. Repeat EKG with no ST Elevations Patient was taken for CT scan then to for urgent cardiac catheterization Cardiac catheterization revealed severe, multivessel disease as well as markedly diminished LVEF. Patient with hypoxia as well as hypotension in the pathology laboratory director. He briefly had an IABP placed and was started on Phenylephrine. Results relayed to patient's family - opted for Comfort Measures at this time in accordance with patient's wishes Principal Diagnosis Acute coronary syndrome/non-ST elevation HI due to three-vessel disease Cardiogenic shock, requiring balloon pump initially. Now off of balloon pump Acute systolic congestive heart failure/ischemic cardiomyopathy with EF of 15% Acute hypoxic respiratory failure due to CHF. Resolved Ventricular ectopy requiring amiodarone Discharge Exam General: Awake, conversant. Frail looking elderly male lying in bed. Heart: S1, S2/regular rate and rhythm, no murmur rubs or gallops Lungs: Clear to auscultation bilaterally. Normal effort Abdomen: Soft/nontender/nondistended. No hepatosplenomegaly Extremities: No clubbing/cyanosis. No edema Behavior: Appropriate, cooperative Discharge Data Allergies Allergy/AdvReac Type Severity Reaction Status Date / Time No Known Allergies Allergy Verified 04/12/25 21:18 Consultations 04/18/25 14:01 Consult Palliative Care Routine Procedures Performed Operation Date: 04/12/25 21:20 Actual Procedures s Cineradiography w/Routine Exam - Ganesh Hernandez MD, PhD s Intra-Aortic Balloon Insertion - Ganesh Hernandez MD, PhD p Cath, Coronaries ONLY (no LV) - Ganesh Hernandez MD, PhD Ordered Studies Chest X-Ray 04/12/25 21:15 Exam(s): XR CXR 1 VIEW EXAM: XR Chest, 1 View CLINICAL HISTORY: Reason for exam: Chest pain, nonspecific. TECHNIQUE: Frontal view of the chest. COMPARISON: No relevant prior studies available. FINDINGS: Lungs: Unremarkable. No consolidation. Pleural space: Unremarkable. No pneumothorax. Heart: Unremarkable. No cardiomegaly. Mediastinum: Unremarkable. Normal mediastinal contour. Bones/joints: Unremarkable. No acute fracture. IMPRESSION: Normal chest x-ray. Electronically signed by: Wil Sosa MD 04/12/25 22:15 PM Abdomen/Pelvis CTA 04/12/25 21:24 Exam(s): CTA ABDOMEN + PELVIS W/WO Contrast IV Amt: 119ml EXAM: CT Angiography Abdomen and Pelvis Without and With Intravenous Contrast CLINICAL HISTORY: Reason for exam: trauma. TECHNIQUE: Axial computed tomographic angiography images of the abdomen and pelvis without and with intravenous contrast. CTDI is 20.42 mGy and DLP is 1466. 29 mGy-cm. Automated exposure control was utilized for the study. A dose lowering technique was utilized adhering to the principles of ALARA. MIP reconstructed images were created and reviewed. CONTRAST: Patient received 119ml of IV contrast COMPARISON: No relevant prior studies available. FINDINGS: VASCULATURE: Aorta: No acute findings. No abdominal aortic aneurysm. No dissection. Celiac trunk and mesenteric arteries: No acute findings. No occlusion or significant stenosis. Renal arteries: No acute findings. No occlusion or significant stenosis. Iliac arteries: No acute findings. No occlusion or significant stenosis. Lung bases: Unremarkable. No mass. No consolidation. ABDOMEN: Liver: Unremarkable. No mass. Gallbladder and bile ducts: Cholelithiasis without evidence acute cholecystitis. No ductal dilation. Pancreas: Unremarkable. No ductal dilation. No mass. Spleen: Unremarkable. No splenomegaly. Adrenals: Unremarkable. No mass. Kidneys and ureters: Simple 15 cm left renal cyst. No follow-up of this simple cyst is necessary. Simple 2.7 cm right renal cysts. No follow-up of these simple cysts is necessary. No obstructing stones. No hydronephrosis. Stomach and bowel: Unremarkable. No obstruction. No mucosal thickening. PELVIS: Appendix: No findings to suggest acute appendicitis. Bladder: Unremarkable. No stones. No mass. Reproductive: Unremarkable as visualized. ABDOMEN and PELVIS: Intraperitoneal space: Unremarkable. No significant fluid collection. No free air. Bones/joints: No acute fracture. No dislocation. Soft tissues: Fat containing left inguinal hernia Lymph nodes: Unremarkable. No enlarged lymph nodes. IMPRESSION: No acute findings in the arteries of the abdomen and pelvis. Cholelithiasis without evidence acute cholecystitis Electronically signed by: Wil Sosa MD 04/12/25 22:[address] 04/12/25 21:24 Exam(s): CT C SPINE EXAM: CT Cervical Spine Without Intravenous Contrast CLINICAL HISTORY: Reason for exam: trauma. TECHNIQUE: Axial computed tomography images of the cervical spine without intravenous contrast. CTDI is 24.47 mGy and DLP is 486.7 mGy-cm. Automated exposure control was utilized for the study. A dose lowering technique was utilized adhering to the principles of ALARA. COMPARISON: No relevant prior studies available. FINDINGS: Vertebrae: Multilevel cervical spondylopathy resulting in varying degrees of canal and foraminal stenosis most severe at the C5-C6 and C6- C7 levels. Diffuse osteopenia. No acute fracture. Discs/spinal canal/neural foramina: See above. Soft tissues: Unremarkable. IMPRESSION: No acute findings in the cervical spine. Multilevel cervical spondylopathy Electronically signed by: Wil Sosa MD 04/12/25 22:21 PM Chest CTA 04/12/25 21:24 Exam(s): CTA CHEST W/WO Contrast IV Amt: 119ml EXAM: CT Angiography Chest Without and With Intravenous Contrast CLINICAL HISTORY: Reason for exam: trauma. TECHNIQUE: Axial computed tomographic angiography images of the chest without and with intravenous contrast. CTDI is 20.42 mGy and DLP is 1466.29 mGy-cm. Automated exposure control was utilized for the study. A dose lowering technique was utilized adhering to the principles of ALARA. MIP reconstructed images were created and reviewed. CONTRAST: Patient received 119ml of IV contrast COMPARISON: No relevant prior studies available. FINDINGS: Pulmonary arteries: Unremarkable. No pulmonary embolism. Aorta: No acute findings. No thoracic aortic aneurysm. Lungs: Unremarkable. No mass. No consolidation. Pleural space: Unremarkable. No significant effusion. No pneumothorax. Heart: Coronary artery calcifications. No cardiomegaly. No significant pericardial effusion. No evidence of RV dysfunction. Bones/joints: No acute fracture. No dislocation. Soft tissues: Unremarkable. Lymph nodes: Unremarkable. No enlarged lymph nodes. IMPRESSION: No acute findings in the visualized arteries of the chest. Electronically signed by: Wil Sosa MD 04/12/25 22:[address] 04/12/25 21:24 Exam(s): CT HEAD Without Contrast EXAM: CT Head Without Intravenous Contrast CLINICAL HISTORY: Reason for exam: trauma. TECHNIQUE: Axial computed tomography images of the head/brain without intravenous contrast. CTDI is 37.87 mGy and DLP is 624.41 mGy-cm. Automated exposure control was utilized for the study. A dose lowering technique was utilized adhering to the principles of ALARA. COMPARISON: No relevant prior studies available. FINDINGS: Brain: Unremarkable. No hemorrhage. No significant white matter disease. No edema. Ventricles: Unremarkable. No ventriculomegaly. Bones/joints: Unremarkable. No acute fracture. Soft tissues: Unremarkable. Sinuses: Unremarkable as visualized. No acute sinusitis. Mastoid air cells: Unremarkable as visualized. No mastoid effusion. IMPRESSION: Normal head/brain CT. Electronically signed by: Wil Sosa MD 04/12/25 22:17 PM Chest X-Ray 04/13/25 10:28 EXAM: Radiograph of the Chest 1 View INDICATION: Myocardial infarction TECHNIQUE: Frontal view of the chest. COMPARISON: No relevant prior studies available. FINDINGS: Lungs and pleural spaces: There is moderate to marked diffuse thickening of the interstitial markings and batwing type perihilar groundglass density. No consolidation. No pleural effusion or pneumothorax. Heart: Prominent cardiac shadow partially centered by technique. Mediastinum: Normal contour. Bones/joints: No fracture, erosion or dislocation. Soft tissues: No abnormality noted. No radiopaque foreign body noted. Upper abdomen: No abnormality noted. IMPRESSION: Moderate to severe interstitial thickening and predominantly perihilar infiltrate. Findings may reflect developing CHF and/or bronchitis with perihilar pneumonia. ACT 112: N/A Electronically signed by Philomena Rollins 04-13-2025 11:29 AM Chest X-Ray 04/14/25 09:56 XR chest 1V portable CLINICAL HISTORY: ACS COMPARISON STUDY: 04/13/2025 FINDINGS: Stable mild cardiomegaly without pulmonary vascular congestion. There is mild stranding opacity at the left lung base. Otherwise the prior pulmonary opacities have resolved. No pleural effusion or pneumothorax. IMPRESSION: Mild residual opacity left lung base, improved. ACT 112: Negative or not required by law. Electronically signed by: Elliott Conner M.D. 04/14/2025 10:25 AM 04/12/25 21:06 CL Cath Imgs for PACS use only Stat 04/12/25 21:24 CT angio abd pelvis wo/w con Stat CT angio chest dissec wo/w con Stat CT cervical spine wo con Stat CT head/brain wo con Stat Hospital Course (1) Acute coronary syndrome: He appears to have suffered a non-ST elevation HI on admission. Continue medical management. He is off the balloon pump and blood pressure has stabilized. Cardiac cath completed, showed three-vessel disease Initially comfort care was decided on. However the patient was awake and alert and wanted to be a DNR/DNI but was not decided on comfort care. Currently on medical management which is limited due to soft blood pressure Continue aspirin Started Toprol-XL low-dose. Continue. (2) Cardiogenic shock: Present on admission. Now resolved. He is off pressor support in the balloon pump has been discontinued. Will follow Continue aspirin Blood pressure stable now but running soft (3) Acute systolic (congestive) heart failure: Cardiac echo reveals left ventricular enlargement with estimated ejection fraction 15 to 20%. Mild AI and moderate MR are noted. CHF has resolved with treatment. Chest x-ray done on April 14 looked much better Ischemic cardiomyopathy Not on diuretics now Repeat limited echo showed EF that remains unchanged at 15% Started small dose of Toprol-XL If blood pressure tolerates, may start CARMEN inhibitor soon Dr. Eaton reevaluated the patient. The patient again declined stent placement Unable to start GDMT for heart failure because of soft blood pressure readings. Was able to start metoprolol only. Follow-up with Dr. Mejias and PCP to continue to discuss goals of care Met with palliative care prior to discharge. Decisions for hospice made at this time manager media relations met with the family and gave him a list of hospice services in town in case the patient and family decided to go through the comfort care route (4) Acute respiratory failure with hypoxia: Resolved. He is now on room air (5) Ventricular ectopy: Suppressed with amiodarone. Intravenous administration switched to oral dosing on April 14. Continue telemetry. Being discharged on amiodarone. (6) Neuropathy: Peripheral neuropathy associated with restless legs. Continue current medical management (7) GERD (gastroesophageal reflux disease): Controlled with PPI therapy Plan Insurance denied SNF placement twice Patient wishes to go home Total Time Total Time Spent Total Time Spent (In Minutes): 35 Discharge Plan Discharge Items Patient Disposition: Home - Home Health Services Reason For Visit: S/P CATHETERIZATION, SEVERE CAD, POOR EF Discharge Diagnosis: Acute coronary syndrome/non-ST elevation HI due to three-vessel disease Cardiogenic shock, requiring balloon pump initially. Now off of balloon pump Acute systolic congestive heart failure/ischemic cardiomyopathy with EF of 15% Acute hypoxic respiratory failure due to CHF. Resolved Ventricular ectopy requiring amiodarone Activity: Resume your previous activity Non-emergency contact: Primary Care Provider Call non-emergency contact if: you have any medication questions and your symptoms worsen Follow-up/Referrals: Eduardo Mejias MD [Physician] - (spoke with scheduling department and was advised that Dr Mejias's office will call patient to schedule follow up appointment.) Erna West CRNP [Primary Care Provider] - (patient will make PCP follow up appointment.) Diet: Heart Healthy Addtl Attending Provider Instructions: Advised to follow-up with PCP in 1 week Advised to follow-up with cardiology in 2 weeks Advised to note that you have heart blockages that we could not fix and as a result, you have a very weak heart. We were unable to start you on medications that are good for your heart because your blood pressure is too low. You will need to follow-up with your PCP and personal lines sales executive very closely as your condition may decline in the absence of proper management. Your goals of care will need to be addressed in near future. Pending Studies at Discharge: No Stand-Alone Forms: My [facility] Medications and DC Order Prescriptions: New metoprolol succinate 25 mg Tablet Extended Release 24 Hr 12.5 mg PO QAM 30 Days Qty: 15 0RF amiodarone 200 mg tablet 200 mg PO BID 14 Days Qty: 28 0RF Continued prednisone 10 mg Tablet 10 mg PO [id number] Rx Instructions: TAKES EVERY DAY EXCEPT FRIDAYS. ropinirole 1 mg Tablet 1 mg PO HS Rx Instructions: administer 1-3 hours before bedtime famotidine 10 mg Tablet 10 mg PO BID oxybutynin chloride 10 mg Tablet Extended Release 24hr 10 mg PO DAILY hydrocodone-acetaminophen 5-325 mg Tablet 0.5 tab PO BID aspirin 81 mg Tablet,Delayed Release (Dr/Ec) 81 mg PO [id number] Rx Instructions: MON, WED, & FRI acetaminophen [Tylenol Extra Strength] 500 mg Tablet 1,000 mg PO HS PRN (Reason: Pain) amitriptyline 25 mg Tablet 25 mg PO HS methotrexate sodium 2.5 mg Tablet 15 mg PO WK Rx Instructions: FRIDAYS tamsulosin [Flomax] 0.4 mg Capsule 0.4 mg PO DAILY amitriptyline 10 mg Tablet 10 mg PO DAILY folic acid 1 mg Tablet 1 mg PO BID magnesium 250 mg Tablet 250 mg PO DAILY cholecalciferol (vitamin D3) [Vitamin D3] 125 mcg (5,000 unit) Tablet 125 mcg PO DAILY omega 5-[id number]-fish oil [Fish Oil] 1,200 (144-216) mg Capsule 2 cap PO HS Discharge Orders: Discharge Order (Routine); Ordered 04/18/25 Ordered By: Monico [place]/Other Patient Handouts: What Is Hospice?, What Is Palliative Care, Eating Heart-Healthy Foods Admission Data Admit Date/Time: 04/12/25 23:08 Attending Provider: Monico Quintana Admit Provider: Jordana Wagner Primary Care Provider: Erna West Other Providers: Torin Khan; Marco A Bazzi [facility]; Ramona Lyn
[2025-04-18 15:08] VITALS: BP 112/74; PULSE 71
== END 2025-04-18 16:31 | disposition home health service (06) | DRG 270 ==
LOC: ED 20:59 → CC 21:44 → 1E 21:44 → SUATTDRO 23:08 → 2S 04-13 13:47
PROC: CLB.CCO (2025-04-12 21:20)

== ENCOUNTER 2025-04-25 15:24 | Inpatient (IN) ==
[2025-04-25 15:56] LABS: Hematocrit (blood only) 33.9 % (42.0-52.0); Hemoglobin 11.4 g/dl (14.0-18.0); Immature Granulocytes # (auto) 0.06 K/uL (0.01-0.20); Immature Granulocytes % (auto) 0.6 %; Mean Corpuscular Hemoglobin 32.5 pg (25.0-34.0); Mean Corpuscular Volume 96.6 fL (80.0-100.0); Platelet Count 170 K/uL (130-400); RDW Standard Deviation 55.2 fL (36.4-46.3); Red Blood Count 3.51 M/uL (4.70-6.10); White Blood Count 9.42 K/ul (4.8-10.8)
[2025-04-25 16:14] LABS: Alanine Aminotransferase 19.0 U/L (7-52); Albumin Globulin Ratio 1.5 (0.9-2); Alkaline Phosphatase 39.0 U/L (34-104); Anion Gap 8.0 (3-11); Bilirubin,Total 0.9 mg/dl (0.2-1.0); Blood Urea Nitrogen 26.0 mg/dl (6-23); Calcium 8.4 mg/dl (8.6-10.3); Carbon Dioxide 26.0 mmol/L (21-32); Chloride 103.0 mmol/L (98-107); Creatinine Clr Calc Pharmacy 36.9 ml/min; Globulin 2.6 gm/dl (2.5-4.0); Glucose 108.0 mg/dl (70-99(Fasting)); Magnesium 1.9 mg/dl (1.7-2.4); Potassium 4.0 mmol/L (3.5-5.1); Sodium 137.0 mmol/L (136-145); Total Protein 6.5 gm/dl (6.0-8.3)
--- NOTE | 2025-04-25 16:14 | XRay Report ---
Clinical History: Dyspnea Technique: 2 frontal views of the chest were obtained Comparison is made to the prior examination dated 04/14/2025 Findings: There are worsened bilateral lower lobe opacities. There is also worsened diffuse interstitial prominence. The heart size is at the upper limit of normal. No definite pneumothorax is seen. There is a suspected small left pleural effusion. No fracture is noted. No foreign body is seen Impression: 1. Worsened pulmonary opacities, which may represent a combination of pulmonary edema and bilateral lower lobe pneumonia 2. Suspected small left pleural effusion ACT 112: Positive. There are findings on this exam that require communication between the performing entity and the patient following Patient Test Result Information Act ([place] ACT 112) guidelines. Electronically signed by Eber Bunn 04-25-2025 4:14 PM
[2025-04-25 16:52] LABS: Appearance Urine Clear (Clear); Glucose Urine UA Negative (Negative)
--- NOTE | 2025-04-25 16:56 | Emergency Department Note ---
Impression & Plan SOB (shortness of breath), CHF (congestive heart failure), CAD (coronary artery disease) ED Provider Note NAME: ENZO PUGA AGE: 84 SEX: Male INFORMANT: Patient and family ED PROVIDER(S): Javi Leslie MD CHIEF COMPLAINT: Shortness of breath PLAN: Disposition: Admitted Outpatient prescription management: none Referral: None MEDICAL DECISION MAKING: Patient presented because of shortness of breath. Per records reviewed. Patient was considered for palliative care as he did not want any intervention. ECG did not show any acute event. Chest x-ray was concerning for increasing pulmonary edema. Patient does not have any fever or flulike symptoms. He had a mild anemia. Patient had a slight increase of his creatinine from 1.2-1.4. BNP and troponin were scanned for over 550. He did urinate about 250 and then a Gardner catheter was placed. He had almost 600 mL of urine obtained. He noted less distention in his abdomen. Patient was given 60 mg of IV Lasix. Discussed further evaluation and management in the hospital with patient and family and they were in agreement. Consultation was made with Dr. Tristan of the [facility] service. Case discussed and diagnostics were reviewed. Patient was evaluated in the ER for further management. Care/management discussed with: commercial real estate sales manager, hospitalist Level of care consideration(s): After review of the information above and other included data, I feel the patient requires escalation of care to admission Triage Nursing notes: reviewed and agree them. Vital Signs: reviewed and remarkable for hypertension Additional History obtained from: Family regarding his outpatient course and condition Chronic Medical/Social Conditions affecting care: CAD Prior/ Outside/ External records reviewed: Cardiology notes from hospitalization last week reviewed. Patient did not have further intervention. Patient was on balloon pump. Differential Diagnosis: CHF, ACS,Reactive airway disease, pneumonia, pneumothorax, COPD, infections, cardiac ischemia, pulmonary embolism, musculoskeletal, gastrointestinal, as well as other pathologies. CHF, ACS, Diagnostics, independently interpreted by me: ECG: none Cardiac Monitoring: Cardiac monitoring ordered by me: The patient was placed on continuous cardiac monitoring and observed. It revealed a sinus rhythm at 79 bpm. Without dysrhythmia. Medical decision rules: none Imaging studies: Chest x-ray concerning for bilateral pulmonary edema. No pneumothorax. HPI: 84 year old Male arrives for evaluation of shortness of breath. Patient was recently in the hospital after suffering an acute coronary syndrome. Patient was found to have multivessel disease and elected for conservative medical management. Patient did not want to have any major intervention. He was treated conservatively and discharged. He has been taking 20 mg of Lasix and his outpatient provider bumped him to 40 mg yesterday and then 60 mg today. He had minimal urine output. Patient notes increasing swelling in his legs and decreased energy level. He notes no chest pain or discomfort. Patient has had some abdominal bloating and decreased bowel movement. Patient was started on magnesium citrate by his outpatient provider. Family was concerned and patient felt that he needed more treatment and came back to the hospital. Pt denies LOC, headache, fevers, chills, diaphoresis, visual changes, neck pain, chest pain, nausea, vomiting, abdominal pain, back pain, melena, hematochezia,numbness, focal weakness, rash, or other complaints. PAST MEDICAL HISTORY: See Below, CAD, ND PAST SURGICAL HISTORY: See Below, SOCIAL HISTORY: See Below, retired HOME MEDICATIONS: See Below ALLERGIES: See Below VITALS: See Below PHYSICAL EXAMINATION: GENERAL: Awake, alert, nuw-glubfanfnqt-[id number], in no distress HENT: Normocephalic, atraumatic. Oropharynx unremarkable. EYES: Normal conjunctiva. Sclera non-icteric. NECK: Inspection normal. Non-tender. Supple. No nuchal rigidity. FROM. No masses. RESPIRATORY: Clear to auscultation. No wheezes. No rales. Normal respiratory effort. CARDIAC: Normal rate. Normal rhythm. No murmurs. No rubs. Extremities warm and well perfused. Pulses equal. No JVD. GI: Soft, minimally-distended. No tenderness to palpation. No rebound or guarding. No masses. There is bilateral inguinal ecchymosis present without any tenderness. : Normal penis and scrotum however significant ecchymosis present which appears to be contiguous with the inguinal areas. RECTAL: Deferred. MUSCULOSKELETAL: Atraumatic. Chest examination reveals no tenderness. The back is symmetrical on inspection without obvious abnormality. There is no CVA tenderness to palpation. No joint edema. LOWER EXTREMITIES: Calves are equal size bilaterally and non-tender. No edema. No discoloration. NEURO: Normal sensorium. No sensory or motor deficits noted. SKIN: No rash or jaundice noted. PROCEDURES: none CRITICAL CARE: none OBSERVATION NOTE: none Past Med/Surg History Problem List (Updated 04/25/25 @ 16:56 by Javi Leslie MD) CAD (coronary artery disease) (Acute) CHF (congestive heart failure) (Acute) SOB (shortness of breath) (Acute) Counseling regarding goals of care Palliative care by specialist Ventricular ectopy Acute respiratory failure with hypoxia Acute systolic (congestive) heart failure GERD (gastroesophageal reflux disease) Hypoxia Cardiogenic shock Acute coronary syndrome Medical History (Updated 04/25/25 @ 16:56 by Javi Leslie MD) Neuropathy Surgical History (Updated 04/13/25 @ 01:47 by Jordana Wagner DO) No significant past surgical history Family History (Updated 04/13/25 @ 01:47 by Jordana Wagner DO) Other Family history non-contributory Social History Smoking Status: Never smoker Hx Alcohol Use: No Hx Substance Use: No Preferred Language: [place] Island[place] Communication Ability: Impaired Communication Ability Comment: Impaired d/t meds and acuity Commercial Insurance Underwriter Required: No Beliefs That Will Affect Care: None Current Living Situation: Spouse Feels Safe at Home: Yes Assistive Devices: Cane, Scooter/Electric Scooter, Stair Lift and Walker Allergies Allergies Allergy/AdvReac Type Severity Reaction Status Date / Time No Known Allergies Allergy Verified 04/12/25 21:18 Home Meds Home Medications Medication Instructions Recorded Confirmed acetaminophen 500 mg tablet 1,000 mg PO HS PRN Pain 04/12/25 04/12/25 (Tylenol Extra Strength) amitriptyline 10 mg tablet 10 mg PO DAILY 04/12/25 04/12/25 amitriptyline 25 mg tablet 25 mg PO HS 04/12/25 04/12/25 aspirin 81 mg tablet,delayed 81 mg PO 3XWK 04/12/25 04/12/25 release cholecalciferol (vitamin D3) 125 125 mcg PO DAILY 04/12/25 04/12/25 mcg (5,000 unit) tablet (Vitamin D3) famotidine 10 mg tablet 10 mg PO BID 04/12/25 04/12/25 folic acid 1 mg tablet 1 mg PO BID 04/12/25 04/12/25 hydrocodone 5 mg-acetaminophen 325 0.5 tab PO BID 04/12/25 04/12/25 mg tablet magnesium 250 mg tablet 250 mg PO DAILY 04/12/25 04/12/25 methotrexate sodium 2.5 mg tablet 15 mg PO WK 04/12/25 04/12/25 omega 7-usr-tgv-fish oil 1,200 mg 2 cap PO HS 04/12/25 04/12/25 (144 mg-216 mg) capsule (Fish Oil) oxybutynin chloride 10 mg 10 mg PO DAILY 04/12/25 04/12/25 tablet,extended release 24 hr prednisone 10 mg tablet 10 mg PO 6XWK 04/12/25 04/12/25 ropinirole 1 mg tablet 1 mg PO HS 04/12/25 04/12/25 tamsulosin 0.4 mg capsule (Flomax) 0.4 mg PO DAILY 04/12/25 04/12/25 Previous Rx's Medication Instructions Recorded amiodarone 200 mg tablet 200 mg PO BID 14 days #28 tabs 04/18/25 metoprolol succinate 25 mg 12.5 mg (1/2 x 25 mg) PO QAM 1 04/18/25 tablet,extended release 24 hr month #15 tabs Results & Data (ED) Vital Signs Vital Signs - 24 hr 04/25/25 15:37 04/25/25 15:37 04/25/25 15:54 Temperature 36.6 C Temperature Source Temporal Artery Scan Pulse Rate 111 H Respiratory Rate 20 Respiratory Effort / Characteristics Non-Labored Spontaneous Respiratory Depth Normal Respiratory Pattern Regular Blood Pressure 165/106 H Blood Pressure Mean 125 Blood Pressure Position Sitting Pulse Oximetry 94 94 94 Oxygen Delivery Method Room Air Room Air Room Air Sepsis Recent Fever Within 48 Hours No Sepsis New/Unexplained Change in Mental Status N/A Sepsis Action Taken by Nursing No Action Required 04/25/25 16:29 Temperature Temperature Source Pulse Rate 79 Respiratory Rate Respiratory Effort / Characteristics Respiratory Depth Respiratory Pattern Blood Pressure Blood Pressure Mean Blood Pressure Position Pulse Oximetry Oxygen Delivery Method Sepsis Recent Fever Within 48 Hours Sepsis New/Unexplained Change in Mental Status Sepsis Action Taken by Nursing Laboratory Data 04/25/25 15:34 04/25/25 15:34 Lab Results 04/25/25 Range/Units 15:34 WBC 9.42 (4.8-10.8) K/ul RBC 3.51 L (4.70-6.10) M/uL Hgb 11.4 L (14.0-18.0) g/dl Hct 33.9 L (42.0-52.0) % MCV 96.6 (80.0-100.0) fL MCH 32.5 (25.0-34.0) pg MCHC 33.6 (32.0-36.0) g/dL RDW Std Deviation 55.2 H (36.4-46.3) fL RDW Coeff of Antoinette 15.6 H (11.5-14.5) % Plt Count 170 (130-400) K/uL MPV 9.1 L (9.4-12.4) fL Immature Gran % (Auto) 0.6 % Neut % (Auto) 89.1 % Lymph % (Auto) 5.3 % [place] % (Auto) 4.5 % Eos % (Auto) 0.2 % Baso % (Auto) 0.3 % Neut # (Auto) 8.39 H (1.40-6.50) K/uL Lymph # (Auto) 0.50 L (1.20-3.40) K/uL [place] # (Auto) 0.42 (0.11-0.59) K/uL Eos # (Auto) 0.02 (0.00-0.50) K/uL Baso # (Auto) 0.03 (0.00-0.20) K/uL Immature Gran # (Auto) 0.06 (0.01-0.20) K/uL Sodium 137 (136-145) mmol/L Potassium 4.0 (3.5-5.1) mmol/L Chloride 103 (98-107) mmol/L Carbon Dioxide 26 (21-32) mmol/L Anion Gap 8 (3-11) BUN 26 H (6-23) mg/dl Creatinine 1.44 H (0.6-1.4) mg/dl Est Cr Clr Drug Dosing 36.9 ml/min eGFR 47.91 BUN/Creatinine Ratio 18.1 (10-20) Glucose 108 H (70-99(Fasting)) mg/dl Calcium 8.4 L (8.6-10.3) mg/dl Magnesium 1.9 (1.7-2.4) mg/dl Total Bilirubin 0.9 (0.2-1.0) mg/dl AST 15 (13-39) U/L ALT 19 (7-52) U/L Alkaline Phosphatase 39 (34-104) U/L Troponin I High Sens 414.1 H* (0-20) pg/ml B-Natriuretic Peptide 576 H (0-100) pg/ml Total Protein 6.5 (6.0-8.3) gm/dl Albumin 3.9 (3.4-5.0) gm/dl Globulin 2.6 (2.5-4.0) gm/dl Albumin/Globulin Ratio 1.5 (0.9-2) Imaging Data Radiologist's Impression: Chest X-Ray 04/25/25 15:45 Clinical History: Dyspnea Technique: 2 frontal views of the chest were obtained Comparison is made to the prior examination dated 04/14/2025 Findings: There are worsened bilateral lower lobe opacities. There is also worsened diffuse interstitial prominence. The heart size is at the upper limit of normal. No definite pneumothorax is seen. There is a suspected small left pleural effusion. No fracture is noted. No foreign body is seen Impression: 1. Worsened pulmonary opacities, which may represent a combination of pulmonary edema and bilateral lower lobe pneumonia 2. Suspected small left pleural effusion ACT 112: Positive. There are findings on this exam that require communication between the performing entity and the patient following Patient Test Result Information Act ([place] ACT 112) guidelines. Electronically signed by Eber Bunn 04-25-2025 4:14 PM Discharge Plan Visit Data Chief Complaint: Shortness of Breath/Dyspnea ED Provider: Javi Leslie Discharge Problem: SOB (shortness of breath), CHF (congestive heart failure), CAD (coronary artery disease) Patient Disposition: Admitted As Inpatient Condition: Fair Forms Stand Alone Forms: [facility] Prescriptions Prescriptions: No Action prednisone 10 mg Tablet 10 mg PO 6XWK Rx Instructions: TAKES EVERY DAY EXCEPT FRIDAYS. ropinirole 1 mg Tablet 1 mg PO HS Rx Instructions: administer 1-3 hours before bedtime famotidine 10 mg Tablet 10 mg PO BID oxybutynin chloride 10 mg Tablet Extended Release 24hr 10 mg PO DAILY hydrocodone-acetaminophen 5-325 mg Tablet 0.5 tab PO BID aspirin 81 mg Tablet,Delayed Release (Dr/Ec) 81 mg PO 3XWK Rx Instructions: MON, WED, & FRI acetaminophen [Tylenol Extra Strength] 500 mg Tablet 1,000 mg PO HS PRN (Reason: Pain) amitriptyline 25 mg Tablet 25 mg PO HS methotrexate sodium 2.5 mg Tablet 15 mg PO WK Rx Instructions: FRIDAYS tamsulosin [Flomax] 0.4 mg Capsule 0.4 mg PO DAILY amitriptyline 10 mg Tablet 10 mg PO DAILY folic acid 1 mg Tablet 1 mg PO BID magnesium 250 mg Tablet 250 mg PO DAILY cholecalciferol (vitamin D3) [Vitamin D3] 125 mcg (5,000 unit) Tablet 125 mcg PO DAILY omega 9-stl-psf-fish oil [Fish Oil] 1,200 (144-216) mg Capsule 2 cap PO HS metoprolol succinate 25 mg Tablet Extended Release 24 Hr 12.5 mg PO QAM 30 Days Qty: 15 0RF amiodarone 200 mg tablet 200 mg PO BID 14 Days Qty: 28 0RF Referrals Referrals: Erna West CRNP [Primary Care Provider] -
[2025-04-25] MEDS: FUROSEMIDE 40 MG/4 ML VIAL IV ONE (16:57)
--- NOTE | 2025-04-25 17:42 | History & Physical Report ---
Date of Service April 25, 2025 Assessment & Plan (1) Acute on chronic systolic congestive heart failure: Plan: Parenteral Lasix diuresis. Add Zaroxolyn every Monday and Monday. Gardner catheter in place to accurately monitor urine output. Serial chest x-ray (2) Ischemic cardiomyopathy: Plan: Recent non-STEMI. Severe triple-vessel coronary artery disease. Ranexa added to medication regimen. He did not tolerate metoprolol due to bradycardia but he does tolerate amiodarone to suppress the ventricular ectopy. Current EKG reveals normal sinus rhythm. (3) Ventricular ectopy: Plan: Continue amiodarone. Telemetry (4) BPH w urinary obs/LUTS: Plan: Gardner catheter placed in the ED due to urinary retention. This will remain in place at discharge until he can follow-up with his urologist in the [facility] Plan Hopeful discharge to home early next week. Gardner catheter will remain in place until he can follow-up with his urologist in the [facility]. Family is aware. History of Present Illness Chief Complaint: SOB Primary Care Provider: ANY Urena 84-year-old white male with recent NSTEMI and known ischemic heart disease. He recent underwent cardiac catheterization with severe triple-vessel coronary artery disease. Due to his end-stage was determined that medical management was most appropriate. Unfortunately he has developed acute on chronic systolic congestive heart failure with gradually worsening shortness of breath and orthopnea. Fortunately he is not requiring any supplemental oxygen. Chest x- ray however again shows congestive heart failure. Will add Ranexa to his medication regimen along with Zaroxolyn every Monday and Monday. Gardner catheter was placed in the ED due to urinary retention related to his prostatism. This will remain in place indefinitely until he can follow-up with his urologist in the [facility]. He has an outpatient visit scheduled with [facility] cardiology next week. Allergies Allergy/AdvReac Type Severity Reaction Status Date / Time No Known Allergies Allergy Verified 04/25/25 16:55 Home Medications Medication Instructions Recorded Confirmed Type acetaminophen 500 mg tablet 1,000 mg PO HS PRN Pain 04/12/25 04/25/25 History (Tylenol Extra Strength) amitriptyline 10 mg tablet 10 mg PO DAILY 04/12/25 04/25/25 History amitriptyline 25 mg tablet 25 mg PO HS 04/12/25 04/25/25 History aspirin 81 mg tablet,delayed 81 mg PO 3XWK 04/12/25 04/25/25 History release cholecalciferol (vitamin D3) 125 125 mcg PO DAILY 04/12/25 04/25/25 History mcg (5,000 unit) tablet (Vitamin D3) famotidine 10 mg tablet 10 mg PO BID 04/12/25 04/25/25 History folic acid 1 mg tablet 1 mg PO BID 04/12/25 04/25/25 History hydrocodone 5 mg-acetaminophen 325 0.5 tab PO BID 04/12/25 04/25/25 History mg tablet magnesium 250 mg tablet 250 mg PO DAILY 04/12/25 04/25/25 History methotrexate sodium 2.5 mg tablet 15 mg PO WK 04/12/25 04/25/25 History omega 0-vpt-scg-fish oil 1,200 mg 2 cap PO HS 04/12/25 04/25/25 History (144 mg-216 mg) capsule (Fish Oil) oxybutynin chloride 10 mg 10 mg PO DAILY 04/12/25 04/25/25 History tablet,extended release 24 hr ropinirole 1 mg tablet 1 mg PO HS 04/12/25 04/25/25 History tamsulosin 0.4 mg capsule (Flomax) 0.4 mg PO DAILY 04/12/25 04/25/25 History amiodarone 200 mg tablet 200 mg PO BID 14 days #28 tabs 04/18/25 04/25/25 Rx Past Med/Surg History Problem List (Updated 04/25/25 @ 17:40 by Steven Tristan MD) BPH w urinary obs/LUTS Ventricular ectopy Ischemic cardiomyopathy Acute on chronic systolic congestive heart failure CAD (coronary artery disease) (Acute) CHF (congestive heart failure) (Acute) SOB (shortness of breath) (Acute) Counseling regarding goals of care Palliative care by specialist Ventricular ectopy Acute respiratory failure with hypoxia Acute systolic (congestive) heart failure GERD (gastroesophageal reflux disease) Hypoxia Cardiogenic shock Acute coronary syndrome Medical History (Updated 04/25/25 @ 17:40 by Steven Tristan MD) Neuropathy Surgical History (Updated 04/13/25 @ 01:47 by Jordana Wagner DO) No significant past surgical history Family History (Updated 04/13/25 @ 01:47 by Jordana Wagner DO) Other Family history non-contributory Social History Smoking Status: Never smoker Hx Alcohol Use: No Hx Substance Use: No Preferred Language: [place] Communication Ability: Impaired Communication Ability Comment: Impaired d/t meds and acuity Square Shear Operator Required: No Beliefs That Will Affect Care: None Current Living Situation: Spouse Feels Safe at Home: Yes Assistive Devices: Cane, Scooter/Electric Scooter, Stair Lift and Walker Review of Systems 2 Review of Systems: Constitutionalno fever or chills ENTno blurred vision, no double vision, no epistaxis, no sore throat Respiratoryno cough, no wheezing. Dyspnea on exertion and orthopnea Cardiacno palpitations, no chest pain, no syncope [place] nausea, vomiting, diarrhea, melena, hematochezia GUno urinary retention, no urinary incontinence, no dysuria, no hematuria Musculoskeletalno joint pain, no muscle tenderness Skinno bruising, no rashes, no pruritus Neurono isolated weakness, no paresthesia, no weakness Psychno depression, no anxiety Physical Exam 2 Physical Exam: General-alert and oriented x3, no fever, no chills HEENT-head atraumatic and normocephalic, pupils equal and reactive to light, extraocular muscles intact Neck-no lymphadenopathy or thyromegaly, trachea midline Chest-bibasilar inspiratory rales. No rhonchi. No wheezing. Cardiac-regular rate and rhythm, occasional premature beat, normal S1 and S2 Abdomen-normal bowel sounds, no hepatosplenomegaly Extremities-no cyanosis, clubbing, or edema Neuro-cranial nerves II through XII intact, motor and sensory function within normal limits, strength symmetrical, no focal deficits Psych-normal affect, normal mood Results & Data Results & Data Vital Signs (Past 12 Hours) Vital Signs Temp Pulse Resp BP Pulse Ox O2 Del Method 04/25/25 16:29 79 04/25/25 15:54 94 Room Air 04/25/25 15:37 94 Room Air 04/25/25 15:37 36.6 C 111 H 20 165/106 H 94 Room Air Laboratory Results 04/25/25 15:34 04/25/25 15:34 Code Status & VTE Plan Code Status DNR/DNI PG Care Time/CCT Total # of Minutes Spent Total Time Spent with Patient: Total time spent is greater than 50% in coordination of care (as documented) at patient's floor/unit and/or counseling patient: Coding Level of Care Code 03871 INT INP/OBS CARE 3/75MIN Diagnoses Acute on chronic systolic congestive heart failure I50.23 Ischemic cardiomyopathy I25.5 Ventricular ectopy I49.3 BPH w urinary obs/LUTS N40.1; N13.8
[2025-04-25] MEDS ORDERED: ONDANSETRON INJ 2 MG/ML 2 ML VIAL IV PRN (21:09)
--- NOTE | 2025-04-25 21:18 | Electrocardiogram Report ---
Test Reason : Blood Pressure : */* mmHG Vent. Rate : 95 BPM Atrial Rate : 95 BPM P-R Int : 154 ms QRS Dur : 98 ms QT Int : 356 ms P-R-T Axes : 59 109 44 degrees QTcB Int : 447 ms Normal sinus rhythm Rightward axis Pulmonary disease pattern Nonspecific T wave abnormality Abnormal ECG When compared with ECG of 13-Apr-2025 11:35, Non-specific change in ST segment in Lateral leads T wave inversion no longer evident in Lateral leads Confirmed by Bowen Major ([id number]) on 04/25/2025 9:18:34 PM Referred By: Confirmed By: Bowen Major
[2025-04-25] MEDS: OMEGA-3 (PURIFIED FISH OIL) 1 GM CAP PO SCH (21:57)
[2025-04-25] MEDS: FOLIC ACID 1 MG TAB PO SCH (21:57)
[2025-04-25] MEDS: RANOLAZINE 500 MG ER TAB PO SCH (21:58)
[2025-04-25] MEDS: FUROSEMIDE INJ 20 MG/2 ML VIAL IV SCH (21:59)
[2025-04-25] MEDS: AMITRIPTYLINE HCL 25 MG TAB PO SCH (21:59)
[2025-04-25] MEDS: AMIODARONE 200 MG TAB PO SCH (21:59)
[2025-04-25] MEDS: HEPARIN SOD 5,000 UNIT/0.5 ML VIAL SQ SCH (22:08)
[2025-04-26 06:27] LABS: Anion Gap 8.0 (3-11); Blood Urea Nitrogen 29.0 mg/dl (6-23); Calcium 8.1 mg/dl (8.6-10.3); Carbon Dioxide 29.0 mmol/L (21-32); Chloride 99.0 mmol/L (98-107); Creatinine Clr Calc Pharmacy 32.2 ml/min; Glucose 120.0 mg/dl (70-99(Fasting)); Potassium 3.4 mmol/L (3.5-5.1); Sodium 136.0 mmol/L (136-145)
[2025-04-26] MEDS: CHOLECALCIFEROL 125 MCG (5,000 UNITS) TAB PO SCH (08:52)
[2025-04-26] MEDS: AMITRIPTYLINE HCL 10 MG TAB PO SCH (08:52)
[2025-04-26] MEDS: MAGNESIUM OXIDE 400 MG TAB PO SCH (08:52)
[2025-04-26] MEDS: POTASSIUM CHLORIDE CRTAB 20 MEQ TABCR PO SCH (10:20)
[2025-04-26] MEDS: HYDROCORTISONE SOD 50 MG in SYRINGE 0 ML IV SCH ×2 (11:47→11:53)
[2025-04-26] MEDS: ALBUT/IPRATROP 3MG/0.5MG NEB 3 ML VIAL ONE (14:30)
[2025-04-26] MEDS: POLYETHYLENE (MIRALAX) 17 GM PACK PO SCH (15:40)
[2025-04-26] MEDS: DOCUSATE SODIUM 100 MG CAP PO SCH (15:40)
[2025-04-26] MEDS: ALBUT/IPRATROP 3MG/0.5MG NEB 3 ML VIAL NEB STA (15:41)
--- NOTE | 2025-04-26 16:23 | Hospitalist Progress Note ---
Date of Service April 26, 2025 Assessment & Plan (1) Acute on chronic systolic congestive heart failure: Plan: Parenteral Lasix dosage has been decreased. He has exhibited a brisk diuresis thus far. Zaroxolyn will be administered every Monday and going forward. Gardner catheter was placed on admission due to urinary retention related to his prostatism and will remain in place to accurately monitor urine output. Repeat chest x-ray tomorrow, April 27 (2) Ischemic cardiomyopathy: Plan: Recent non-STEMI. Severe triple-vessel coronary artery disease. Known low ejection fraction. Ranexa has been stopped and lisinopril added to medication regimen. He did not tolerate metoprolol due to bradycardia but he does tolerate amiodarone to suppress the ventricular ectopy. Current EKG reveals normal sinus rhythm. (3) Ventricular ectopy: Plan: Continue amiodarone. Telemetry (4) BPH w urinary obs/LUTS: Plan: Gardner catheter placed in the ED due to urinary retention. This will remain in place at discharge until he can follow-up with his urologist in the [place] area (5) Adrenal insufficiency: Plan: Is a possibility since his chronic prednisone therapy was abruptly discontinued recently. This could be contributing to his borderline hypotension which developed after his significant diuresis from the parenteral Lasix. He has a known low ejection fraction. He has been placed on intravenous hydrocortisone for now and will eventually be switched back to his usual oral prednisone dosage. (6) Acute kidney injury superimposed on stage 3a chronic kidney disease: Plan: Creatinine is trending upward with Lasix diuresis which cannot be helped. Will continue to monitor urine output and obtain daily lab studies Plan Hopeful discharge to home sometime this coming week. Gardner catheter will remain in place until he can follow-up with his urologist in the [place] area. Family is aware. Admission and Anticipated Discharge Date Admission Date: April 25, 2025 Subjective The patient is having episodes of shortness of breath although his saturation remains stable. He has diuresed quite a bit with intravenous Lasix and the addition of Zaroxolyn. Lasix dosage has been down titrated. Potassium has dropped to 3.4 and replacement ordered. Due to his low ejection fraction he has been started on low-dose lisinopril. Ranexa was started on admission but will be discontinued. A family member states he takes the methotrexate for a history of psoriatic arthritis and he is prednisone dependent but his prednisone was recently discontinued abruptly by a PA. Intravenous hydrocortisone has been started since adrenal insufficiency is a possibility and could be contributing to hypotension. Will repeat chest x-ray again tomorrow, April 27. Review of Systems 2 Review of Systems: Constitutionalno fever or chills. He is complaining of generalized weakness and is having episodes of shortness of breath although his pulse oximetry is stable. ENTno blurred vision, no double vision, no epistaxis, no sore throat Respiratoryno cough, no wheezing. Dyspnea on exertion and orthopnea Cardiacno palpitations, no chest pain, no syncope Grazyna nausea, vomiting, diarrhea, melena, hematochezia GUno urinary retention, no urinary incontinence, no dysuria, no hematuria Musculoskeletalno joint pain, no muscle tenderness Skinno bruising, no rashes, no pruritus Neurono isolated weakness, no paresthesia, no weakness Psychno depression, no anxiety Physical Exam 2 Physical Exam: General-alert and oriented x3, no fever, no chills. HEENT-head atraumatic and normocephalic, pupils equal and reactive to light, extraocular muscles intact Neck-no lymphadenopathy or thyromegaly, trachea midline Chest-bibasilar inspiratory rales. No rhonchi. No wheezing. Cardiac-regular rate and rhythm, occasional premature beat, normal S1 and S2 Abdomen-normal bowel sounds, no hepatosplenomegaly Extremities-no cyanosis, clubbing, or edema Neuro-cranial nerves II through XII intact, motor and sensory function within normal limits, strength symmetrical, no focal deficits Psych-normal affect, normal mood Results & Data Results & Data Vital Signs (Past 12 Hours) Vital Signs Temp Pulse Pulse Resp BP Pulse Ox O2 Del Method 04/26/25 16:12 36.8 C 85 18 106/70 98 Nasal Cannula 04/26/25 15:25 67 04/26/25 14:31 72 16 95 Nasal Cannula 04/26/25 11:26 36.6 C 67 18 100/66 99 Nasal Cannula 04/26/25 08:15 36.3 C L 66 18 96/62 L 93 Nasal Cannula 04/26/25 08:07 Nasal Cannula 04/26/25 08:00 65 O2 Flow Rate 04/26/25 16:12 2 04/26/25 15:25 04/26/25 14:31 2 04/26/25 11:26 2 04/26/25 08:15 2 04/26/25 08:07 2 04/26/25 08:00 Laboratory Results 04/25/25 15:34 04/26/25 05:39 PG Care Time/CCT Total # of Minutes Spent Total Time Spent with Patient: Total time spent is greater than 50% in coordination of care (as documented) at patient's floor/unit and/or counseling patient: Coding Level of Care Code 88137 SUB INP/OBS CARE 3/50MIN Diagnoses Acute on chronic systolic congestive heart failure I50.23 Ischemic cardiomyopathy I25.5 Ventricular ectopy I49.3 BPH w urinary obs/LUTS N40.1; N13.8 Adrenal insufficiency E27.40 Acute kidney injury superimposed on stage 3a chronic kidney disease N17.9; N18.31
[2025-04-26] MEDS: ALBUT/IPRATROP 3MG/0.5MG NEB 3 ML VIAL NEB PRN (17:02)
[2025-04-26] MEDS: FUROSEMIDE 40 MG/4 ML VIAL IV SCH (17:17)
[2025-04-27 06:18] LABS: Anion Gap 10.0 (3-11); Blood Urea Nitrogen 41.0 mg/dl (6-23); Calcium 8.4 mg/dl (8.6-10.3); Carbon Dioxide 29.0 mmol/L (21-32); Chloride 97.0 mmol/L (98-107); Creatinine Clr Calc Pharmacy 30.2 ml/min; Glucose 155.0 mg/dl (70-99(Fasting)); Potassium 4.0 mmol/L (3.5-5.1); Sodium 136.0 mmol/L (136-145)
--- NOTE | 2025-04-27 08:06 | XRay Report ---
XR chest 1V portable CLINICAL HISTORY: CHF COMPARISON STUDY: 04/25/2025 FINDINGS: Stable mild cardiomegaly with mild pulmonary vascular congestion. Stable hazy opacity in th e lung bases with partial obscuration of the diaphragm. No pneumothorax. Stable pulmonary interstitia l prominence. IMPRESSION: Stable exam. ACT 112: Negative or not required by law. Electronically signed by: Elliott Conner M.D. 04/27/2025 8:05 AM
--- NOTE | 2025-04-27 12:33 | Hospitalist Progress Note ---
Date of Service April 27, 2025 Assessment & Plan (1) Acute on chronic systolic congestive heart failure: Plan: Continue parenteral Lasix. Repeat Zaroxolyn dosage today, April 27. Start low- dose spironolactone tomorrow, April 28. So far he is tolerating the addition of lisinopril. Gardner catheter was placed on admission due to urinary retention related to his prostatism and will remain in place to accurately monitor urine output. Chest x-ray done today, April 27, is stable. Will repeat chest x-ray again tomorrow, April 28 (2) Ischemic cardiomyopathy: Plan: Recent non-STEMI. Severe triple-vessel coronary artery disease. Known low ejection fraction. He is tolerating the lisinopril so far. He did not tolerate metoprolol due to bradycardia but he does tolerate amiodarone to suppress the ventricular ectopy. Current EKG reveals normal sinus rhythm. (3) Ventricular ectopy: Plan: Continue amiodarone. Telemetry (4) BPH w urinary obs/LUTS: Plan: Gardner catheter placed in the ED due to urinary retention. This will remain in place at discharge until he can follow-up with his urologist in the [place] area (5) Adrenal insufficiency: Plan: Is a possibility on admission since his chronic prednisone therapy was abruptly discontinued recently. This could have been contributing to his borderline hypotension which developed after his significant diuresis from the parenteral Lasix. He has a known low ejection fraction. He appears to have clinically improved with the addition of intravenous hydrocortisone and will be switched back to his usual oral prednisone dosing today, April 27 (6) Acute kidney injury superimposed on stage 3a chronic kidney disease: Plan: Creatinine is trending upward with Lasix diuresis which cannot be helped. Will continue to monitor urine output and obtain daily lab studies Plan OT and PT assessments requested. He will need a short-term SNF placement before he can return home. Hopeful discharge sometime this coming week. Gardner catheter will remain in place until he can follow-up with his urologist in the [place] area. Family is aware. Admission and Anticipated Discharge Date Admission Date: April 25, 2025 Subjective The patient looks and feels better today, April 27, after steroid therapy was restarted. Hydrocortisone will be switched back to oral prednisone therapy today, April 27. Another dose of Zaroxolyn will be administered today, April 27, and low-dose spironolactone will be started tomorrow, April 28. Will repeat chest x-ray again tomorrow, April 28. Oral potassium supplementation has been down titrated since potassium has been corrected to 4.0. Creatinine uptrending slightly with diuresis to 1.7 now. Blood pressure is 109/73 and he appears to be tolerating the addition of lisinopril quite well. Oxygen saturation 98% on 2 L. OT and PT assessments requested. He will need short-term rehab placement at discharge before he can return home. Review of Systems 2 Review of Systems: Constitutionalno fever or chills. Episodes of shortness of breath have resolved. ENTno blurred vision, no double vision, no epistaxis, no sore throat Respiratoryno cough, no wheezing. Dyspnea on exertion and orthopnea Cardiacno palpitations, no chest pain, no syncope Grazyna nausea, vomiting, diarrhea, melena, hematochezia GUno urinary retention, no urinary incontinence, no dysuria, no hematuria Musculoskeletalno joint pain, no muscle tenderness Skinno bruising, no rashes, no pruritus Neurono isolated weakness, no paresthesia, no weakness Psychno depression, no anxiety Physical Exam 2 Physical Exam: General-alert and oriented x3, no fever, no chills. HEENT-head atraumatic and normocephalic, pupils equal and reactive to light, extraocular muscles intact Neck-no lymphadenopathy or thyromegaly, trachea midline Chest-bibasilar inspiratory rales. No rhonchi. No wheezing. Cardiac-regular rate and rhythm, occasional premature beat, normal S1 and S2 Abdomen-normal bowel sounds, no hepatosplenomegaly Extremities-no cyanosis, clubbing, or edema Neuro-cranial nerves II through XII intact, motor and sensory function within normal limits, strength symmetrical, no focal deficits Psych-normal affect, normal mood Results & Data Results & Data Vital Signs (Past 12 Hours) Vital Signs Temp Pulse Pulse Resp BP BP Pulse Ox 04/27/25 11:44 36.3 C L 69 18 108/69 99 04/27/25 08:27 36.6 C 71 19 109/73 98 04/27/25 08:03 04/27/25 08:00 65 04/27/25 03:06 36.4 C L 73 20 102/71 95 O2 Del Method O2 Flow Rate 04/27/25 11:44 Room Air 04/27/25 08:27 Nasal Cannula 2 04/27/25 08:03 Nasal Cannula 2 04/27/25 08:00 04/27/25 03:06 Nasal Cannula 2 Laboratory Results 04/25/25 15:34 04/27/25 05:29 PG Care Time/CCT Total # of Minutes Spent Total Time Spent with Patient: Total time spent is greater than 50% in coordination of care (as documented) at patient's floor/unit and/or counseling patient: Coding Level of Care Code 55190 SUB INP/OBS CARE 3/50MIN Diagnoses Acute on chronic systolic congestive heart failure I50.23 Ischemic cardiomyopathy I25.5 Ventricular ectopy I49.3 BPH w urinary obs/LUTS N40.1; N13.8 Adrenal insufficiency E27.40 Acute kidney injury superimposed on stage 3a chronic kidney disease N17.9; N18.31
[2025-04-27] MEDS: POTASSIUM CHLORIDE 10 MEQ TABCR PO SCH (20:09)
[2025-04-28 06:05] LABS: Anion Gap 8.0 (3-11); Blood Urea Nitrogen 48.0 mg/dl (6-23); Calcium 8.5 mg/dl (8.6-10.3); Carbon Dioxide 33.0 mmol/L (21-32); Chloride 94.0 mmol/L (98-107); Creatinine Clr Calc Pharmacy 26.6 ml/min; Glucose 122.0 mg/dl (70-99(Fasting)); Potassium 3.5 mmol/L (3.5-5.1); Sodium 135.0 mmol/L (136-145)
--- NOTE | 2025-04-28 07:45 | XRay Report ---
EXAM: XR chest 1V portable CLINICAL HISTORY: CHF TECHNIQUE: An X-ray image of the chest is obtained in AP projection. COMPARISON: 04/25/2025 15:00:00 POLLS OR SURVEYS INTERVIEWER FINDINGS: Pulmonary Parenchyma: Ill-defined large parenchymal opacityis noted involving right lower zone with blunting of right costophrenic angle- possibility of right lower lobar consolidation with synpneumonic pleural effusion likely. Rest of both lungs are clear. Heart and Mediastinum: Heart size and shape are normal. No mediastinal widening or masses. No hilar or mediastinal lymphadenopathy. Bony Thorax: Bony thorax appears intact without fractures or deformities. Soft Tissues: Soft tissues overlying the chest wall are unremarkable. IMPRESSION: 1. Ill-defined large parenchymal opacityis noted involving right lower zone with blunting of right costophrenic angle- possibility of right lower lobar consolidation with synpneumonic pleural effusion likely. ( size of consolidation is increased with interval development of pleural effusion). 2. Left lower zonal haziness is resolved in present scan. 3. Left pleural effusion is also resolved. Electronically signed by Gerald Fuentes 04-28-2025 07:44 AM
[2025-04-28] MEDS: ASPIRIN 81 MG ECTAB PO SCH (08:21)
[2025-04-28] MEDS: SPIRONOLACTONE 25 MG TAB PO SCH (09:39)
--- NOTE | 2025-04-28 12:43 | Hospitalist Progress Note ---
Date of Service April 28, 2025 Assessment & Plan (1) Acute on chronic systolic congestive heart failure: Plan: CHF protocol orders IV diuresis GDMT As blood pressure tolerates (2) Ischemic cardiomyopathy: Plan: Recent non-STEMI. Severe triple-vessel coronary artery disease. Known low ejection fraction. He is tolerating the lisinopril so far. He did not tolerate metoprolol due to bradycardia but he does tolerate amiodarone to suppress the ventricular ectopy. (3) Ventricular ectopy: Plan: Continue amiodarone. Telemetry Goal K greater than 4 mag greater than 2 (4) BPH w urinary obs/LUTS: Plan: Gardner catheter placed in the ED due to urinary retention. This will remain in place at discharge until he can follow-up with his urologist in the [place] area (5) Adrenal insufficiency: Plan: Is a possibility on admission since his chronic prednisone therapy was abruptly discontinued recently. This could have been contributing to his borderline hypotension which developed after his significant diuresis from the parenteral Lasix. He has a known low ejection fraction. He appears to have clinically improved with the addition of intravenous hydrocortisone and Was switched back to his usual oral prednisone dosing On April 27 (6) Acute kidney injury superimposed on stage 3a chronic kidney disease: Plan: Creatinine is trending upward with Lasix diuresis which cannot be helped. Will continue to monitor urine output and obtain daily lab studies Avoid nephrotoxic meds Plan patient was recently comfort measures and it seems this was reversed. Very guarded prognosis. OT and PT assessments requested. He will need a short-term SNF placement before he can return home. Hopeful discharge sometime this coming week. Gardner catheter will remain in place until he can follow-up with his urologist in the [place] area. Family is aware. Admission and Anticipated Discharge Date Admission Date: April 25, 2025 Subjective Overall seems to be doing okay. Seen and examined at bedside with RN present. We discussed all aspects of the patient's care extensively. Patient states his breathing continues to improve denies any orthopnea chest pain lightheadedness nausea any other ischemic, cardiopulmonary or any other symptoms. SBP around 90s holding lisinopril today. Continuing with diuresis. I's and O's net -1.1 L. Weight trends down from 78 to 69 kg over past few days. Unsure of accuracy. Creatinine increased from 1.7 to 2 If continues to uptrend we will consider decreasing diuresis. No reports of ectopy or other arrhythmias on telemetry X-ray today with questionable right effusion. Reports has questionable pneumonia. Clinically patient does not have fevers chills cough or any other symptoms that would suggest pneumonia. Repeating chest x-ray tomorrow Also discussed the case with patient's attending hospitalist from yesterday around time of this writing. He tells me the patient was recently comfort measures and it seems this was reversed. Very guarded prognosis. Review of Systems Review of Systems: Constitutionalno fever or chills. Episodes of shortness of breath have resolved. ENTno blurred vision, no double vision, no epistaxis, no sore throat Respiratoryno cough, no wheezing. Dyspnea on exertion and orthopnea Cardiacno palpitations, no chest pain, no syncope Grazyna nausea, vomiting, diarrhea, melena, hematochezia GUno urinary retention, no urinary incontinence, no dysuria, no hematuria Musculoskeletalno joint pain, no muscle tenderness Skinno bruising, no rashes, no pruritus Neurono isolated weakness, no paresthesia, no weakness Psychno depression, no anxiety Physical Exam Physical Exam: General-alert and oriented x3, no fever, no chills. HEENT-head atraumatic and normocephalic, pupils equal and reactive to light, extraocular muscles intact Neck-no lymphadenopathy or thyromegaly, trachea midline Chest-bibasilar inspiratory rales. No rhonchi. No wheezing. Cardiac-regular rate and rhythm, occasional premature beat, normal S1 and S2 Abdomen-normal bowel sounds, no hepatosplenomegaly Extremities-no cyanosis, clubbing, or edema Neuro-cranial nerves II through XII intact, motor and sensory function within normal limits, strength symmetrical, no focal deficits Psych-normal affect, normal mood Results & Data Results & Data Vital Signs (Past 12 Hours) Vital Signs Temp Pulse Pulse Resp BP BP Pulse Ox 04/28/25 11:23 36.5 C 65 16 90/64 L 94/61 L 98 04/28/25 09:39 102/80 04/28/25 08:00 61 04/28/25 07:29 36.4 C L 59 L 18 90/52 L 90/52 L 96 04/28/25 04:51 36.4 C L 59 L 18 95/60 L 96 04/28/25 01:41 66 O2 Del Method O2 Flow Rate 04/28/25 11:23 Nasal Cannula 2 04/28/25 09:39 04/28/25 08:00 04/28/25 07:29 Nasal Cannula 2 04/28/25 04:51 Nasal Cannula 2 04/28/25 01:41 PG Care Time/CCT Total # of Minutes Spent Total Time Spent with Patient: Total time spent is greater than 50% in coordination of care (as documented) at patient's floor/unit and/or counseling patient: Coding Level of Care Code 98495 SUB INP/OBS CARE 2/35MIN Diagnoses Acute on chronic systolic congestive heart failure I50.23 Ischemic cardiomyopathy I25.5 Ventricular ectopy I49.3 BPH w urinary obs/LUTS N40.1; N13.8 Adrenal insufficiency E27.40 Acute kidney injury superimposed on stage 3a chronic kidney disease N17.9; N18.31
--- NOTE | 2025-04-28 14:26 | XRay Report ---
XR chest 1V portable CLINICAL HISTORY: chf. reeval right effusion. COMPARISON STUDY: 04/28/2025 FINDINGS: There is stable cardiomegaly with mild pulmonary vascular congestion. There is a small righ t pleural effusion and associated mild right lung base consolidation, improved. No pneumothorax. IMPRESSION: Mild CHF with small right pleural effusion, improved. ACT 112: Negative or not required by law. Electronically signed by: Elliott Conner M.D. 04/28/2025 2:25 PM
[2025-04-28] MEDS: COLLAGENASE OINT 30 GM TUBE EXT SCH (16:50)
[2025-04-28] MEDS: ACETAMINOPHEN 325 MG TAB PO PRN (21:13)
[2025-04-29 09:42] LABS: Anion Gap 9.0 (3-11); Blood Urea Nitrogen 45.0 mg/dl (6-23); Calcium 9.2 mg/dl (8.6-10.3); Carbon Dioxide 36.0 mmol/L (21-32); Chloride 89.0 mmol/L (98-107); Creatinine Clr Calc Pharmacy 27.9 ml/min; Glucose 146.0 mg/dl (70-99(Fasting)); Potassium 3.6 mmol/L (3.5-5.1); Sodium 134.0 mmol/L (136-145)
--- NOTE | 2025-04-29 11:16 | Hospitalist Progress Note ---
Date of Service April 29, 2025 Assessment & Plan (1) Acute on chronic systolic congestive heart failure: Plan: CHF protocol orders GDMT Switch from IV to p.o. Lasix 04/29 GDMT As blood pressure tolerates Close outpatient follow-up with PCP/cardiology (2) Ischemic cardiomyopathy: Plan: Recent non-STEMI. Severe triple-vessel coronary artery disease. Known low ejection fraction. He is tolerating the lisinopril so far. He did not tolerate metoprolol due to bradycardia but he does tolerate amiodarone to suppress the ventricular ectopy. (3) Ventricular ectopy: Plan: Continue amiodarone. Telemetry Goal K greater than 4 mag greater than 2 (4) BPH w urinary obs/LUTS: Plan: Gardner catheter placed in the ED due to urinary retention. This will remain in place at discharge until he can follow-up with his urologist in the [place] area (5) Adrenal insufficiency: Plan: Is a possibility on admission since his chronic prednisone therapy was abruptly discontinued recently. This could have been contributing to his borderline hypotension which developed after his significant diuresis from the parenteral Lasix. He has a known low ejection fraction. He appears to have clinically improved with the addition of intravenous hydrocortisone and Was switched back to his usual oral prednisone dosing On April 27 (6) Acute kidney injury superimposed on stage 3a chronic kidney disease: Plan: Creatinine is trending upward with Lasix diuresis which cannot be helped. Will continue to monitor urine output and obtain daily lab studies Avoid nephrotoxic meds. Repeat BMP postdischarge in 2 to 3 days. Plan patient was recently comfort measures and it seems this was reversed. Very guarded prognosis. OT and PT assessments requested. He will need a short-term SNF placement before he can return home. Hopeful discharge sometime this coming week. Gardner catheter will remain in place until he can follow-up with his urologist in the [place] area. Family is aware. Admission and Anticipated Discharge Date Admission Date: April 25, 2025 Subjective Doing very well Remains in good spirits breathing continues to improve. Weaned down from 2 L to room air. I's and O's remain negative and weight continues to decrease from 70 kg a few days ago down to 67 kg.Discussed with daughter extensively at bedside regarding all aspects of care she was very appreciative. RN present. We discussed importance of close follow-up and strict return precautions she is insightful about the patient's history of heart failure understands and agrees. Renal function remained stable. Switched from IV Lasix to p.o. today. SBP remains around 100 Chest x-ray for today pending if stable can be discharged home with home health Review of Systems Review of Systems: Constitutionalno fever or chills. Episodes of shortness of breath have resolved. ENTno blurred vision, no double vision, no epistaxis, no sore throat Respiratoryno cough, no wheezing. Dyspnea on exertion and orthopnea Cardiacno palpitations, no chest pain, no syncope Grazyna nausea, vomiting, diarrhea, melena, hematochezia GUno urinary retention, no urinary incontinence, no dysuria, no hematuria Musculoskeletalno joint pain, no muscle tenderness Skinno bruising, no rashes, no pruritus Neurono isolated weakness, no paresthesia, no weakness Psychno depression, no anxiety Physical Exam Physical Exam: General-alert and oriented x3, no fever, no chills. HEENT-head atraumatic and normocephalic, pupils equal and reactive to light, extraocular muscles intact Neck-no lymphadenopathy or thyromegaly, trachea midline Chest-bibasilar inspiratory rales. No rhonchi. No wheezing. Cardiac-regular rate and rhythm, occasional premature beat, normal S1 and S2 Abdomen-normal bowel sounds, no hepatosplenomegaly Extremities-no cyanosis, clubbing, or edema Neuro-cranial nerves II through XII intact, motor and sensory function within normal limits, strength symmetrical, no focal deficits Psych-normal affect, normal mood Results & Data Results & Data Vital Signs (Past 12 Hours) Vital Signs Temp Pulse Pulse Resp BP Pulse Ox O2 Del Method 04/29/25 08:00 72 04/29/25 08:00 Room Air 04/29/25 07:30 36.3 C L 60 18 105/65 94 Room Air 04/29/25 04:19 55 L 18 98/62 L 93 Room Air 04/28/25 23:42 72 Laboratory Results Abnormal Labs 04/25/25 04/25/25 04/26/25 15:34 17:34 05:39 RBC 3.51 L Hgb 11.4 L Hct 33.9 L RDW Std Deviation 55.2 H RDW Coeff of Antoinette 15.6 H MPV 9.1 L Neut # (Auto) 8.39 H Lymph # (Auto) 0.50 L Sodium Potassium 3.4 L Chloride Carbon Dioxide BUN 26 H 29 H Creatinine 1.44 H 1.65 H BUN/Creatinine Ratio Glucose 108 H 120 H Calcium 8.4 L 8.1 L Troponin I High Sens 414.1 H* 451.5 H* B-Natriuretic Peptide 576 H 04/27/25 04/28/25 04/29/25 05:29 05:32 08:56 RBC Hgb Hct RDW Std Deviation RDW Coeff of Antoinette MPV Neut # (Auto) Lymph # (Auto) Sodium 135 L 134 L Potassium Chloride 97 L 94 L 89 L Carbon Dioxide 33 H 36 H BUN 41 H 48 H 45 H Creatinine 1.76 H 2.00 H 1.87 H BUN/Creatinine Ratio 23.3 H 24.0 H 24.1 H Glucose 155 H 122 H 146 H Calcium 8.4 L 8.5 L Troponin I High Sens B-Natriuretic Peptide Diagnostic Findings Chest X-Ray 04/28/25 13:00 XR chest 1V portable CLINICAL HISTORY: chf. reeval right effusion. COMPARISON STUDY: 04/28/2025 FINDINGS: There is stable cardiomegaly with mild pulmonary vascular congestion. There is a small right pleural effusion and associated mild right lung base consolidation, improved. No pneumothorax. IMPRESSION: Mild CHF with small right pleural effusion, improved. ACT 112: Negative or not required by law. Electronically signed by: Elliott Conner M.D. 04/28/2025 2:25 PM PG Care Time/CCT Total # of Minutes Spent Total Time Spent with Patient: Total time spent is greater than 50% in coordination of care (as documented) at patient's floor/unit and/or counseling patient: Coding Level of Care Code 66903 SUB INP/OBS CARE 2/35MIN Diagnoses Acute on chronic systolic congestive heart failure I50.23 Ischemic cardiomyopathy I25.5 Ventricular ectopy I49.3 BPH w urinary obs/LUTS N40.1; N13.8 Adrenal insufficiency E27.40 Acute kidney injury superimposed on stage 3a chronic kidney disease N17.9; N18.31
[2025-04-29] MEDS: FUROSEMIDE 40 MG TAB PO SCH (11:39)
--- NOTE | 2025-04-29 11:56 | XRay Report ---
XR chest 1V portable CLINICAL HISTORY: reeval effusion COMPARISON STUDY: 04/28/2025 FINDINGS: Stable mild cardiomegaly with mild pulmonary vascular congestion. Stable small right pleura l effusion and mild adjacent right lung base consolidation. No pneumothorax. IMPRESSION: Stable exam. ACT 112: Negative or not required by law. Electronically signed by: Elliott Conner M.D. 04/29/2025 11:54 AM
[2025-04-30 07:47] LABS: Anion Gap 11.0 (3-11); Blood Urea Nitrogen 47.0 mg/dl (6-23); Calcium 9.1 mg/dl (8.6-10.3); Carbon Dioxide 32.0 mmol/L (21-32); Chloride 91.0 mmol/L (98-107); Creatinine Clr Calc Pharmacy 24.4 ml/min; Glucose 112.0 mg/dl (70-99(Fasting)); Potassium 4.1 mmol/L (3.5-5.1); Sodium 134.0 mmol/L (136-145)
--- NOTE | 2025-04-30 10:51 | Hospitalist Progress Note ---
Date of Service April 30, 2025 Assessment & Plan (1) Acute on chronic systolic congestive heart failure: Plan: CHF protocol orders I's and O's Daily weights Switch from IV to p.o. Lasix 04/29 GDMT As blood pressure tolerates Close outpatient follow-up with PCP/cardiology (2) Ischemic cardiomyopathy: Plan: Recent non-STEMI. Severe triple-vessel coronary artery disease. Known low ejection fraction. He is tolerating the lisinopril so far. He did not tolerate metoprolol due to bradycardia but he does tolerate amiodarone to suppress the ventricular ectopy. (3) Ventricular ectopy: Plan: Continue amiodarone. Telemetry Goal K greater than 4 mag greater than 2 (4) BPH w urinary obs/LUTS: Plan: Gardner catheter placed in the ED due to urinary retention. This will remain in place at discharge until he can follow-up with his urologist in the [place] area (5) Adrenal insufficiency: Plan: Is a possibility on admission since his chronic prednisone therapy was abruptly discontinued recently. This could have been contributing to his borderline hypotension which developed after his significant diuresis from the parenteral Lasix. He has a known low ejection fraction. He appears to have clinically improved with the addition of intravenous hydrocortisone and Was switched back to his usual oral prednisone dosing On April 27 (6) Acute kidney injury superimposed on stage 3a chronic kidney disease: Plan: Creatinine is trending upward with Lasix diuresis which cannot be helped. Will continue to monitor urine output and obtain daily lab studies Avoid nephrotoxic meds. Repeat BMP postdischarge in 2 to 3 days. Plan patient was recently comfort measures and it seems this was reversed. Very guarded prognosis. OT and PT assessments requested. He will need a short-term SNF placement before he can return home. Hopeful discharge sometime this coming week. Gardner catheter will remain in place until he can follow-up with his urologist in the [place] area. Family is aware. Admission and Anticipated Discharge Date Admission Date: April 25, 2025 Subjective Doing very well asymptomatic remains on room air. Eating breakfast. RN at bed side. No chest pain shortness of breath orthopnea or any other symptoms. Eager for discharge. Review of Systems Review of Systems: Constitutionalno fever or chills. Episodes of shortness of breath have resolved. ENTno blurred vision, no double vision, no epistaxis, no sore throat Respiratoryno cough, no wheezing. Dyspnea on exertion and orthopnea Cardiacno palpitations, no chest pain, no syncope Grazyna nausea, vomiting, diarrhea, melena, hematochezia GUno urinary retention, no urinary incontinence, no dysuria, no hematuria Musculoskeletalno joint pain, no muscle tenderness Skinno bruising, no rashes, no pruritus Neurono isolated weakness, no paresthesia, no weakness Psychno depression, no anxiety Physical Exam Physical Exam: General-alert and oriented x3, no fever, no chills. HEENT-head atraumatic and normocephalic, pupils equal and reactive to light, extraocular muscles intact Neck-no lymphadenopathy or thyromegaly, trachea midline Chest-bibasilar inspiratory rales. No rhonchi. No wheezing. Cardiac-regular rate and rhythm, occasional premature beat, normal S1 and S2 Abdomen-normal bowel sounds, no hepatosplenomegaly Extremities-no cyanosis, clubbing, or edema Neuro-cranial nerves II through XII intact, motor and sensory function within normal limits, strength symmetrical, no focal deficits Psych-normal affect, normal mood Results & Data Results & Data Vital Signs (Past 12 Hours) Vital Signs Temp Pulse Pulse Resp BP Pulse Ox O2 Del Method 04/30/25 07:58 63 04/30/25 07:30 36.9 C 69 18 103/67 91 Room Air 04/30/25 03:19 36.7 C 61 16 102/65 92 Room Air 04/29/25 23:27 36.8 C 62 16 102/62 94 Room Air 04/29/25 23:00 63 Laboratory Results Abnormal Labs 04/25/25 04/25/25 04/26/25 15:34 17:34 05:39 RBC 3.51 L Hgb 11.4 L Hct 33.9 L RDW Std Deviation 55.2 H RDW Coeff of Antoinette 15.6 H MPV 9.1 L Neut # (Auto) 8.39 H Lymph # (Auto) 0.50 L Sodium Potassium 3.4 L Chloride Carbon Dioxide BUN 26 H 29 H Creatinine 1.44 H 1.65 H BUN/Creatinine Ratio Glucose 108 H 120 H Calcium 8.4 L 8.1 L Troponin I High Sens 414.1 H* 451.5 H* B-Natriuretic Peptide 576 H 04/27/25 04/28/25 04/29/25 05:29 05:32 08:56 RBC Hgb Hct RDW Std Deviation RDW Coeff of Antoinette MPV Neut # (Auto) Lymph # (Auto) Sodium 135 L 134 L Potassium Chloride 97 L 94 L 89 L Carbon Dioxide 33 H 36 H BUN 41 H 48 H 45 H Creatinine 1.76 H 2.00 H 1.87 H BUN/Creatinine Ratio 23.3 H 24.0 H 24.1 H Glucose 155 H 122 H 146 H Calcium 8.4 L 8.5 L Troponin I High Sens B-Natriuretic Peptide 04/30/25 05:53 RBC Hgb Hct RDW Std Deviation RDW Coeff of Antoinette MPV Neut # (Auto) Lymph # (Auto) Sodium 134 L Potassium Chloride 91 L Carbon Dioxide BUN 47 H Creatinine 2.11 H BUN/Creatinine Ratio 22.3 H Glucose 112 H Calcium Troponin I High Sens B-Natriuretic Peptide PG Care Time/CCT Total # of Minutes Spent Total Time Spent with Patient: Total time spent is greater than 50% in coordination of care (as documented) at patient's floor/unit and/or counseling patient: Coding Level of Care Code 79183 SUB INP/OBS CARE 2/35MIN Diagnoses Acute on chronic systolic congestive heart failure I50.23 Ischemic cardiomyopathy I25.5 Ventricular ectopy I49.3 BPH w urinary obs/LUTS N40.1; N13.8 Adrenal insufficiency E27.40 Acute kidney injury superimposed on stage 3a chronic kidney disease N17.9; N18.31
--- NOTE | 2025-04-30 10:52 | Discharge Summary ---
Discharge Summary Date of Service April 30, 2025 Principal Dx & Hospital Course #1 = Principal Diagnosis (1) Acute on chronic systolic congestive heart failure: CHF protocol orders I's and O's Daily weights Switch from IV to p.o. Lasix 04/29 GDMT As blood pressure tolerates Close outpatient follow-up with PCP/cardiology (2) Ischemic cardiomyopathy: Recent non-STEMI. Severe triple-vessel coronary artery disease. Known low ejection fraction. He is tolerating the lisinopril so far. He did not tolerate metoprolol due to bradycardia but he does tolerate amiodarone to suppress the ventricular ectopy. (3) Ventricular ectopy: Continue amiodarone. Telemetry Goal K greater than 4 mag greater than 2 (4) BPH w urinary obs/LUTS: Gardner catheter placed in the ED due to urinary retention. This will remain in place at discharge until he can follow-up with his urologist in the [place] area (5) Adrenal insufficiency: Is a possibility on admission since his chronic prednisone therapy was abruptly discontinued recently. This could have been contributing to his borderline hypotension which developed after his significant diuresis from the parenteral Lasix. He has a known low ejection fraction. He appears to have clinically improved with the addition of intravenous hydrocortisone and Was switched back to his usual oral prednisone dosing On April 27 (6) Acute kidney injury superimposed on stage 3a chronic kidney disease: Creatinine is trending upward with Lasix diuresis which cannot be helped. Will continue to monitor urine output and obtain daily lab studies Avoid nephrotoxic meds. Repeat BMP postdischarge in 2 to 3 days. Plan patient was recently comfort measures and it seems this was reversed. Very guarded prognosis. OT and PT assessments requested. He will need a short-term SNF placement before he can return home. Hopeful discharge sometime this coming week. Gardner catheter will remain in place until he can follow-up with his urologist in the [place] area. Family is aware. Admission HPI Per Admitting Provider 84-year-old white male with recent NSTEMI and known ischemic heart disease. He recent underwent cardiac catheterization with severe triple-vessel coronary artery disease. Due to his end-stage was determined that medical management was most appropriate. Unfortunately he has developed acute on chronic systolic congestive heart failure with gradually worsening shortness of breath and orthopnea. Fortunately he is not requiring any supplemental oxygen. Chest x- ray however again shows congestive heart failure. Will add Ranexa to his medication regimen along with Zaroxolyn every Monday and Monday. Gardner catheter was placed in the ED due to urinary retention related to his prostatism. This will remain in place indefinitely until he can follow-up with his urologist in the [place] area. He has an outpatient visit scheduled with [facility] cardiology next week. Discharge Exam General-alert and oriented x3, no fever, no chills. HEENT-head atraumatic and normocephalic, pupils equal and reactive to light, extraocular muscles intact Neck-no lymphadenopathy or thyromegaly, trachea midline Chest-bibasilar inspiratory rales. No rhonchi. No wheezing. Cardiac-regular rate and rhythm, occasional premature beat, normal S1 and S2 Abdomen-normal bowel sounds, no hepatosplenomegaly Extremities-no cyanosis, clubbing, or edema Neuro-cranial nerves II through XII intact, motor and sensory function within normal limits, strength symmetrical, no focal deficits Psych-normal affect, normal mood Discharge Plan Discharge Items Patient Disposition: Home - Home Health Services Reason For Visit: EXAC CHF Discharge Diagnosis: chf ae Condition on Discharge: Fair Activity: Resume your previous activity Non-emergency contact: Primary Care Provider and Polishing Machine Operator Call non-emergency contact if: you have any medication questions and your symptoms worsen Follow-up/Referrals: Erna West CRNP [Primary Care Provider] - Diet: Carb Consistent or DM2, Heart Healthy and Low Sodium (2gm) Addtl Attending Provider Instructions: Follow-up with your primary care doctor and your heart doctor within 2-3 days. Have your blood work rechecked to monitor your kidney function and electrolytes in a few days Pending Studies at Discharge: No Studies:: Check BMP to monitor kidney function through primary doctor in 2 to 3 days Stand-Alone Forms: My [facility], Smoking Cessation Medications and DC Order Prescriptions: New potassium chloride 10 mEq Tablet Extended Release 10 meq PO BID Qty: 30 0RF docusate sodium 100 mg Capsule 100 mg PO BID Qty: 60 0RF prednisone 10 mg Tablet 10 mg PO DAILY Qty: 30 0RF lisinopril 2.5 mg Tablet 2.5 mg PO QAM Qty: 30 0RF spironolactone 25 mg Tablet 25 mg PO QAM Qty: 30 0RF furosemide 40 mg Tablet 40 mg PO BID17 Qty: 60 0RF Santyl 250 unit/gram Ointment 1 applic EXT DAILY Qty: 30 0RF Continued ropinirole 1 mg Tablet 1 mg PO HS Rx Instructions: administer 1-3 hours before bedtime famotidine 10 mg Tablet 10 mg PO BID oxybutynin chloride 10 mg Tablet Extended Release 24hr 10 mg PO DAILY hydrocodone-acetaminophen 5-325 mg Tablet 0.5 tab PO BID aspirin 81 mg Tablet,Delayed Release (Dr/Ec) 81 mg PO 3XWK Rx Instructions: MON, WED, & FRI acetaminophen [Tylenol Extra Strength] 500 mg Tablet 1,000 mg PO HS PRN (Reason: Pain) amitriptyline 25 mg Tablet 25 mg PO HS methotrexate sodium 2.5 mg Tablet 15 mg PO WK Rx Instructions: FRIDAYS tamsulosin [Flomax] 0.4 mg Capsule 0.4 mg PO DAILY amitriptyline 10 mg Tablet 10 mg PO DAILY folic acid 1 mg Tablet 1 mg PO BID magnesium 250 mg Tablet 250 mg PO DAILY cholecalciferol (vitamin D3) [Vitamin D3] 125 mcg (5,000 unit) Tablet 125 mcg PO DAILY omega 9-bsc-uds-fish oil [Fish Oil] 1,200 (144-216) mg Capsule 2 cap PO HS amiodarone 200 mg tablet 200 mg PO BID 14 Days Qty: 28 0RF Discharge Orders: Discharge Order (Routine); Ordered 04/30/25 Ordered By: Venita Amin Admission Data Admit Date/Time: 04/25/25 17:26 Attending Provider: Veniat Amin Admit Provider: Steven Tristan Primary Care Provider: Erna West Other Providers: Steven Tristan Hospital Stay Data Consultations 04/25/25 16:41 ED Decision to Admit Stat Pending Results Patient Have Any Pending Studies at Discharge: No Discharge Instructions Given to Patient (Per Discharging Provider) Follow-up with your primary care doctor and your heart doctor within 2-3 days. Have your blood work rechecked to monitor your kidney function and electrolytes in a few days Total Time Total Time Spent Total Time Spent (In Minutes): 35 Coding Level of Care Code 89608 INP/OBS DISCH >30 MIN Diagnoses Acute on chronic systolic congestive heart failure I50.23 Ischemic cardiomyopathy I25.5 Ventricular ectopy I49.3 BPH w urinary obs/LUTS N40.1; N13.8 Adrenal insufficiency E27.40 Acute kidney injury superimposed on stage 3a chronic kidney disease N17.9; N18.31
[2025-05-01 06:47] LABS: Anion Gap 8.0 (3-11); Blood Urea Nitrogen 52.0 mg/dl (6-23); Calcium 8.9 mg/dl (8.6-10.3); Carbon Dioxide 33.0 mmol/L (21-32); Chloride 91.0 mmol/L (98-107); Creatinine Clr Calc Pharmacy 26.0 ml/min; Glucose 113.0 mg/dl (70-99(Fasting)); Potassium 4.4 mmol/L (3.5-5.1); Sodium 132.0 mmol/L (136-145)
[2025-05-01 08:44] VITALS: RESP 16
--- NOTE | 2025-05-01 10:44 | Hospitalist Progress Note ---
Date of Service May 01, 2025 Assessment & Plan (1) Acute on chronic systolic congestive heart failure: Plan: CHF protocol orders Stable I's and O's Daily weights Continue p.o. Lasix GDMT As blood pressure tolerates Outpatient follow-up (2) Ischemic cardiomyopathy: Plan: Recent non-STEMI. Severe triple-vessel coronary artery disease. Known low ejection fraction. He did not tolerate metoprolol due to bradycardia but he does tolerate amiodarone to suppress the ventricular ectopy. Borderline low blood pressure 05/01. Lisinopril held (3) Ventricular ectopy: Plan: Continue amiodarone. Telemetry Goal K greater than 4 mag greater than 2 (4) BPH w urinary obs/LUTS: Plan: Gardner catheter placed in the ED due to urinary retention. This will remain in place at discharge until he can follow-up with his urologist in the [place] area (5) Adrenal insufficiency: Plan: Is a possibility on admission since his chronic prednisone therapy was abruptly discontinued recently. This could have been contributing to his borderline hypotension which developed after his significant diuresis from the parenteral Lasix. He has a known low ejection fraction. He appears to have clinically improved with the addition of intravenous hydrocortisone and Was switched back to his usual oral prednisone dosing On April 27 (6) Acute kidney injury superimposed on stage 3a chronic kidney disease: Plan: Creatinine is trending upward with Lasix diuresis as expected Creatinine stable, slight downtrend 05/01 BMP daily, follow-up with nephrology as outpatient Plan patient was recently comfort measures and it seems this was reversed. Very guarded prognosis. OT and PT assessments requested. He will need a short-term SNF placement before he can return home. Hopeful discharge sometime this coming week. Gardner catheter will remain in place until he can follow-up with his urologist in the [place] area. Family is aware. Admission and Anticipated Discharge Date Admission Date: April 25, 2025 Subjective Feels well at the bedside. Denies complaints. Eating breakfast. No chest pain chest pressure shortness of breath or difficulty breathing. Denies fever/chi lls. Placement ER for bed to be available Physical Exam Physical Exam: General: A&Ox3. NAD. Cooperative. HEENT: Atraumatic, normocephalic. Vision and hearing grossly intact Pulm: CTAB A&P. -wheezes, -rales, -rhonchi. Symmetrical chest rise. No increase in work of breathing. No respiratory distress. Cardiac: RRR, -mrg. Radial pulses intact and symmetrical. Abdominal: Nontender, nondistended, soft. BS present. Results & Data Results & Data Vital Signs (Past 12 Hours) Vital Signs Temp Pulse Pulse Resp BP BP Pulse Ox 05/01/25 08:11 58 L 05/01/25 07:22 36.6 C 62 16 90/60 L 93 05/01/25 02:25 36.5 C 59 L 14 108/71 95 05/01/25 01:00 62 05/01/25 00:57 04/30/25 23:00 37.1 C 61 18 109/75 94 O2 Del Method O2 Flow Rate 05/01/25 08:11 05/01/25 07:22 Room Air 05/01/25 02:25 Nasal Cannula 1 05/01/25 01:00 05/01/25 00:57 Room Air, Nasal Cannula 1 04/30/25 23:00 Nasal Cannula 1 PG Care Time/CCT Total # of Minutes Spent Total Time Spent with Patient: Total time spent is greater than 50% in coordination of care (as documented) at patient's floor/unit and/or counseling patient: Coding Level of Care Code 12955 SUB INP/OBS CARE 3/50MIN Diagnoses Acute on chronic systolic congestive heart failure I50.23 Ischemic cardiomyopathy I25.5 Ventricular ectopy I49.3 BPH w urinary obs/LUTS N40.1; N13.8 Adrenal insufficiency E27.40 Acute kidney injury superimposed on stage 3a chronic kidney disease N17.9; N18.31
[2025-05-01] MEDS: MAGNESIUM HYDROXIDE SUSP 30 ML UDC PO PRN (19:29)
[2025-05-02 05:20] LABS: Anion Gap 9.0 (3-11); Blood Urea Nitrogen 56.0 mg/dl (6-23); Calcium 8.9 mg/dl (8.6-10.3); Carbon Dioxide 30.0 mmol/L (21-32); Chloride 92.0 mmol/L (98-107); Creatinine Clr Calc Pharmacy 24.9 ml/min; Glucose 106.0 mg/dl (70-99(Fasting)); Potassium 4.6 mmol/L (3.5-5.1); Sodium 131.0 mmol/L (136-145)
[2025-05-02 12:08] VITALS: BP 96/58; TEMP 97.5; O2SAT 96
[2025-05-02] MEDS: LIDOCAINE 5% 1 PATCH TD PRN (13:50)
--- NOTE | 2025-05-02 14:16 | Hospitalist Progress Note ---
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 Acute on chronic HFrEF, ischemic cardiomyopathy Creatinine equivocal, 1.9> ~2.0 05/02 however overall appears dry and lungs are clear. Suspect based on concentrated urine and BP that he is shifting to slightly contracted. Will hold Lasix for 1 day and then resume daily dosing on 05/03. There is no lower extremity edema - Heart healthy/low-sodium diet Continue aspirin, spironolactone as tolerated. If blood pressures below goal while euvolemic dose reduce spironolactone to 12.5 mg. Lisinopril has been held for blood pressure Net output in the last day -1691 cc. EF 20% Intolerant of beta-rajwinder due to bradycardia. Weight loss Patient has had weight loss separate from his fluid status in the previous few weeks. He generally has a decreased appetite Boost 3 times daily ordered to help improve protein/calorie intake Could consider a appetite stimulant such as Marinol or olanzapine however he is at significant risk of harm from additional medications that could precipitate confusion or sedation. Did discuss this with patient family at bedside, currently feel that the risk of harm outweighs benefit and will pursue supplemental protein shakes as above for now; can reassess this based on progression and stability Ventricular ectopy Continue amiodarone Is at risk of ventricular dysrhythmia due to significantly reduced ejection fraction Goal potassium 4, mag 2 BPH with LUTS Gardner catheter in place Outpatient urology follow-up, anticipate discharge with Gardner Adrenal insufficiency Continue daily prednisone CKD 3 BMP daily Lasix adjustments as noted Unclear new baseline. Previously creatinine has been around 1.4, more recently during this admission was 1.42.0. Down trended from 2-1.87 with diuresis on 04/29 and then subsequently up trended slightly to 2.06 and appears euvolemic. Lasix has been held for 24 hours and then resumed. Spotcheck creatinine periodically Ideally would resume low-dose lisinopril if/when renal function is stable and blood pressure permits History of comfort measures Guarded prognosis, severe ischemic cardiomyopathy and reduced ejection fraction. OT/PT recommended placement. Case management is following. Medically stable for discharge at this time, pending placement DVT prophylaxis: Heparin subcu CODE STATUS: DNR/DNI (2) Ischemic cardiomyopathy: (3) Ventricular ectopy: (4) BPH w urinary obs/LUTS: (5) Adrenal insufficiency: (6) Acute kidney injury superimposed on stage 3a chronic kidney disease: Admission and Anticipated Discharge Date Admission Date: April 25, 2025 Subjective Seen at the bedside with family present. Has noted some leg discomfort after working with PT otherwise no acute complaints. Reports she feels generally weak, no changes from prior. No chest pain/chest pressure. No shortness of breath. Physical Exam Physical Exam: General: A&Ox3. NAD. Cooperative. HEENT: Atraumatic, normocephalic. Vision and hearing grossly intact Pulm: CTAB A&P. -wheezes, -rales, -rhonchi. Symmetrical chest rise. No increase in work of breathing. No respiratory distress. Cardiac: RRR, soft SM. Radial pulses intact and symmetrical. Extremities: Warm, dry. Moves all extremities equally. Right foot drop is present, otherwise distal extremity strength is intact. Does have bruising of the posterior aspect of the right lower extremities. Sacrum: Small areas of mild pinkness overlying the sacrum, blanchable, no ulceration Results & Data Results & Data Vital Signs (Past 12 Hours) Vital Signs Temp Pulse Resp BP BP Pulse Ox O2 Del Method 05/02/25 12:07 36.4 C L 59 L 16 96/58 L 96 Room Air 05/02/25 07:27 36.7 C 60 16 100/65 95 Room Air 05/02/25 03:38 36.9 C 74 16 104/88 96 Room Air PG Care Time/CCT Total # of Minutes Spent Total Time Spent with Patient: Total time spent is greater than 50% in coordination of care (as documented) at patient's floor/unit and/or counseling patient: Coding Diagnoses Acute on chronic systolic congestive heart failure I50.23 Ischemic cardiomyopathy I25.5 Ventricular ectopy I49.3 BPH w urinary obs/LUTS N40.1; N13.8 Adrenal insufficiency E27.40 Acute kidney injury superimposed on stage 3a chronic kidney disease N17.9; N18.31
--- NOTE | 2025-05-02 15:56 | Discharge Summary ---
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 To do as outpatient: Continue boost supplements 3 times daily Repeat BMP within 1 week as an outpatient Adjust Lasix dose as needed to maintain euvolemia. Has been switched to Lasix 40 mg daily starting 05/04/2025. Euvolemic to slightly contracted on 05/02/2025 Continue rehab Reassess blood pressure and lisinopril tolerance. If renal function is stable and at baseline, and pressures are tolerating recommend resuming low-dose lisinopril. If he is hypotensive this should be held. If borderline low blood pressures limiting lisinopril would dose reduce spironolactone to 12.5 mg and then reassess Follow-up with urology as outpatient for voiding trial and Gardner removal Acute on chronic HFrEF, ischemic cardiomyopathy Creatinine equivocal, 1.9> ~2.0. 05/02 however overall appears dry and lungs are clear. Suspect based on concentrated urine and BP that he is shifting to slightly contracted. Will hold Lasix for 1 day and then resume daily dosing on 05/03. There is no lower extremity edema - Heart healthy/low-sodium diet Continue aspirin, spironolactone as tolerated. If blood pressures below goal while euvolemic dose reduce spironolactone to 12.5 mg. Lisinopril has been held for blood pressure, resume if/as tolerated Net output in the last day -1691 cc. EF 20% Intolerant of beta-rajwinder due to bradycardia. Weight loss Patient has had weight loss separate from his fluid status in the previous few weeks. He generally has a decreased appetite Boost 3 times daily ordered to help improve protein/calorie intake Could consider a appetite stimulant such as Marinol or olanzapine however he is at significant risk of harm from additional medications that could precipitate confusion or sedation. Did discuss this with patient family at bedside, currently feel that the risk of harm outweighs benefit and will pursue supplemental protein shakes as above for now; can reassess this based on progression and stability Ventricular ectopy Continue amiodarone Is at risk of ventricular dysrhythmia due to significantly reduced ejection fraction Goal potassium 4, mag 2 BPH with LUTS Gardner catheter in place Outpatient urology follow-up, Gardner in place at discharge Adrenal insufficiency Continue daily prednisone CKD 3 BMP daily Lasix adjustments as noted Unclear new baseline. Previously creatinine has been around 1.4, more recently during this admission was 1.42.0. Down trended from 2-1.87 with diuresis on 04/29 and then subsequently up trended slightly to 2.06 and appears euvolemic. Lasix has been held for 24 hours and then resumed. Spotcheck creatinine periodically Ideally would resume low-dose lisinopril if/when renal function is stable and blood pressure permits History of comfort measures Guarded prognosis, severe ischemic cardiomyopathy and reduced ejection fraction. OT/PT recommended placement. Case management is following. Medically stable for discharge at this time, pending placement Discharged to [facility] for further rehab and treatment (2) Ischemic cardiomyopathy: (3) Ventricular ectopy: (4) BPH w urinary obs/LUTS: (5) Adrenal insufficiency: (6) Acute kidney injury superimposed on stage 3a chronic kidney disease: Admission HPI Per Admitting Provider 84-year-old white male with recent NSTEMI and known ischemic heart disease. He recent underwent cardiac catheterization with severe triple-vessel coronary artery disease. Due to his end-stage was determined that medical management was most appropriate. Unfortunately he has developed acute on chronic systolic congestive heart failure with gradually worsening shortness of breath and orthopnea. Fortunately he is not requiring any supplemental oxygen. Chest x- ray however again shows congestive heart failure. Will add Ranexa to his medication regimen along with Zaroxolyn every Monday and Monday. Gardner catheter was placed in the ED due to urinary retention related to his prostatism. This will remain in place indefinitely until he can follow-up with his urologist in the [place] area. He has an outpatient visit scheduled with [facility] cardiology next week. Discharge Exam General: A&Ox3. NAD. Cooperative. HEENT: Atraumatic, normocephalic. Vision and hearing grossly intact Pulm: CTAB A&P. -wheezes, -rales, -rhonchi. Symmetrical chest rise. No increase in work of breathing. No respiratory distress. Cardiac: RRR, soft SM. Radial pulses intact and symmetrical. Extremities: Warm, dry. Moves all extremities equally. Right foot drop is present, otherwise distal extremity strength is intact. Does have bruising of the posterior aspect of the right lower extremities. Sacrum: Small areas of mild pinkness overlying the sacrum, blanchable, no ulceration : Gardner in place, draining yellow urine Discharge Plan Discharge Items Patient Disposition: Home - Home Health Services Reason For Visit: EXAC CHF Discharge Diagnosis: chf ae Condition on Discharge: Fair Activity: Resume your previous activity Non-emergency contact: Primary Care Provider, Application Technician and Urologist Call non-emergency contact if: you have any medication questions and your symptoms worsen Follow-up/Referrals: Erna West CRNP [Primary Care Provider] - Ar Holder MD [Physician] - Diet: Carb Consistent or DM2, Heart Healthy and Low Sodium (2gm) Addtl Attending Provider Instructions: Follow-up with your primary care doctor and your heart doctor within 2-3 days. You should have blood work rechecked within 1 week to ensure your kidney numbers remain stable. Your Lasix dose has been adjusted. Please take Lasix 40 mg once daily in the morning starting 05/04/2025. Do not take Lasix 05/03/2025. You may need further Lasix adjustments based on your kidney numbers and volume status Your lisinopril was held while in the hospital. Please check your blood pressure 05/03 and 05/04. If your blood pressure is greater than 110/60, you may resume taking lisinopril 2.5 mg. If your blood pressure remains low or if lightheadedness/dizziness please continue to hold lisinopril and talk to your telegraph office route aide for further recommendations. Please follow-up with urology as an outpatient for a voiding trial and Gardner removal/additional recommendations It is recommended to try to take boost/Ensure shakes for additional protein with meals 3 times daily. Risk/benefits of some appetite stimulants such as Marinol or olanzapine were discussed during your admission however these can also be sedating and the risk was felt to outweigh the benefit at time of hospitalization. This risk/benefit balance can be reassessed if you continue to do well as an outpatient Pending Studies at Discharge: No Studies:: Check BMP to monitor kidney function through primary doctor in 2 to 3 days Stand-Alone Forms: My [facility], Smoking Cessation Medications and DC Order Prescriptions: New potassium chloride 10 mEq Tablet Extended Release 10 meq PO BID Qty: 30 0RF docusate sodium 100 mg Capsule 100 mg PO BID Qty: 60 0RF prednisone 10 mg Tablet 10 mg PO DAILY Qty: 30 0RF lisinopril 2.5 mg Tablet 2.5 mg PO QAM Qty: 30 0RF spironolactone 25 mg Tablet 25 mg PO QAM Qty: 30 0RF Santyl 250 unit/gram Ointment 1 applic EXT DAILY Qty: 30 0RF furosemide 40 mg Tablet 40 mg PO DAILY Qty: 30 0RF Continued ropinirole 1 mg Tablet 1 mg PO HS Rx Instructions: administer 1-3 hours before bedtime famotidine 10 mg Tablet 10 mg PO BID oxybutynin chloride 10 mg Tablet Extended Release 24hr 10 mg PO DAILY hydrocodone-acetaminophen 5-325 mg Tablet 0.5 tab PO BID aspirin 81 mg Tablet,Delayed Release (Dr/Ec) 81 mg PO 3XWK Rx Instructions: MON, MON, & MON acetaminophen [Tylenol Extra Strength] 500 mg Tablet 1,000 mg PO HS PRN (Reason: Pain) amitriptyline 25 mg Tablet 25 mg PO HS methotrexate sodium 2.5 mg Tablet 15 mg PO WK Rx Instructions: FRIDAYS tamsulosin [Flomax] 0.4 mg Capsule 0.4 mg PO DAILY amitriptyline 10 mg Tablet 10 mg PO DAILY folic acid 1 mg Tablet 1 mg PO BID magnesium 250 mg Tablet 250 mg PO DAILY cholecalciferol (vitamin D3) [Vitamin D3] 125 mcg (5,000 unit) Tablet 125 mcg PO DAILY omega 9-gwy-ymg-fish oil [Fish Oil] 1,200 (144-216) mg Capsule 2 cap PO HS amiodarone 200 mg tablet 200 mg PO BID 14 Days Qty: 28 0RF Discharge Orders: Discharge Order (Routine); Ordered 05/02/25 Ordered By: Krzysztof Burnette Admission Data Admit Date/Time: 04/25/25 17:26 Attending Provider: Krzysztof Burnette Admit Provider: Steven Tristan Primary Care Provider: Erna West Other Providers: Steven Tristan Other Interventions: Discharge Summary Assessment (RN) Last Done: 05/02/25 15:54 Hospital Stay Data Consultations 04/25/25 16:41 ED Decision to Admit Stat Pending Results Patient Have Any Pending Studies at Discharge: No Discharge Instructions Given to Patient (Per Discharging Provider) Follow-up with your primary care doctor and your heart doctor within 2-3 days. You should have blood work rechecked within 1 week to ensure your kidney numbers remain stable. Your Lasix dose has been adjusted. Please take Lasix 40 mg once daily in the morning starting 05/04/2025. Do not take Lasix 05/03/2025. You may need further Lasix adjustments based on your kidney numbers and volume status Your lisinopril was held while in the hospital. Please check your blood pressure 05/03 and 05/04. If your blood pressure is greater than 110/60, you may resume taking lisinopril 2.5 mg. If your blood pressure remains low or if lightheadedness/dizziness please continue to hold lisinopril and talk to your telegraph office route aide for further recommendations. Please follow-up with urology as an outpatient for a voiding trial and Gardner removal/additional recommendations It is recommended to try to take boost/Ensure shakes for additional protein with meals 3 times daily. Risk/benefits of some appetite stimulants such as Marinol or olanzapine were discussed during your admission however these can also be sedating and the risk was felt to outweigh the benefit at time of hospitalization. This risk/benefit balance can be reassessed if you continue to do well as an outpatient Total Time Total Time Spent Total Time Spent (In Minutes): Time spend day of discharge 70 minutes including direct patient care, documentation, review of labs and images, and coordination of care. Coding Level of Care Code 42422 INP/OBS DISCH >30 MIN Diagnoses Acute on chronic systolic congestive heart failure I50.23 Ischemic cardiomyopathy I25.5 Ventricular ectopy I49.3 BPH w urinary obs/LUTS N40.1; N13.8 Adrenal insufficiency E27.40 Acute kidney injury superimposed on stage 3a chronic kidney disease N17.9; N18.31
[2025-05-02 15:57] VITALS: PULSE 88
[2025-05-03] MEDS ORDERED: REMOVE LIDODERM PATCH SCH
[2025-05-03] MEDS ORDERED: FUROSEMIDE 40 MG TAB PO SCH (09:00)
--- NOTE | 2025-05-06 05:53 | Coding Query ---
CODING QUERY To promote full compliance with coding requirements relating to patient care, provider participation is requested in all cases of software development analyst uncertainty. Please assist us with the question(s) below: Coding Question(s): Documentation states recent [place] . Please document, if known , date of NJ. ( ED Summary stated 04/18 discharge from [facility] for NJ) . Thank you. Yair Henriquez [facility] Physician's Response(s): Per H&P and cardiology consultation at that time was evaluated for and dx with NJ on 04/12/25 Principal Diagnosis: "that condition established after study, to be chiefly responsible for occasioning the admission of the patient to the hospital for care." Co-Existing Principal Diagnosis: "when two or more diagnoses equally meet the criteria for principal diagnosis as determined by the circumstances of admission, diagnostic work up, and/or therapy provided, and the Alphabetic Index, Tabular List, or another coding guideline does not provide sequencing direction, any one of the diagnoses may be sequenced first." "When the physician has documented what appears to be a current diagnosis in the body of the record, but has not included the diagnosis in the final diagnostic statement, the physician should be asked whether the diagnosis should be added." (Source Coding Clinic 2 QTR90. p3-4) RENAN
== END 2025-05-02 17:41 | DRG 281 ==
LOC: SUATTDRO → ED 15:24 → SUATTDRO 17:26 → 4W 17:26